=== PATIENT | female | born 1965 | race African-American/Black ===

== ENCOUNTER 2019-08-23 14:00 | Outpatient (CLI) | payer OTHER, SELFPAY ==
--- NOTE | ~2019-08-23 | US_ITS ---
EXAMINATION: US thyroid DATE: 08/23/2019 14:37 INDICATION: Thyroid nodule. TECHNIQUE: Multiple ultrasound images of the thyroid were obtained. COMPARISON: MRI 09/19/2013 FINDINGS: The right thyroid lobe measures 4.0 x 1.7 x 2.4 cm. The left thyroid lobe measures 4.9 x 1.3 x 1.8 c m. In the right thyroid lobe, there is a 1.8 cm solid, hypoechoic, clxox-pocb-xeji nodule with teena h margin without echogenic foci (TI-RADS TR4) with increase in size from 1.0 cm on 09/19/13. In the rig ht thyroid lobe, there is a 6 mm solid, hypoechoic, asuxt-twkj-ecyf nodule with smooth margin without echogenic foci (TR4). In the left thyroid lobe, there is a 6 mm solid, hypoechoic, cmaxc-aqah-lndz n odule with smooth margin without echogenic foci (TR4). IMPRESSION: 1. Thyroid nodules. Ultrasound-guided fine-needle aspiration of the larger right thyroid nodule is re commended. Reviewed, dictated and finalized at location A. IMPRESSION: 1. Thyroid nodules. Ultrasound-guided fine-needle aspiration of the larger righ t thyroid nodule is recommended.
--- NOTE | ~2019-08-23 | XR_ITS ---
XR abdomen/kub 1V 08/23/2019 14:42 INDICATION: Constipation TECHNIQUE: KUB COMPARISON: No prior studies for comparison. FINDINGS: Bowel gas pattern is normal. There is no evidence of free air, mass, organomegaly, ascites or obstruction. No abnormal calculi are seen. There are pelvic phleboliths. There are cholecystecto my clips. The bones appear intact. IMPRESSION: 1: No acute abdominal abnormality identified. Reviewed, dictated and finalized at location A.
== END 2019-08-23 14:01 | disposition home or self-care (01) ==
PROVIDERS: PCP Family Medicine; Visit Provider Nurse Practitioner
DX: E04.2 Nontoxic multinodular goiter (principal); K59.00 Constipation, unspecified
CPT/HCPCS: 74018; 76536

== ENCOUNTER 2019-09-26 12:56 | Outpatient (CLI) | payer OTHER, SELFPAY ==
--- NOTE | ~2019-09-26 | US_ITS ---
EXAMINATION: US FNA w image guidance DATE: 09/26/2019 14:21 INDICATION: Thyroid nodule TECHNIQUE: A time-out was performed to verify the patient's name, date of , and procedure to be performed . The procedure and its benefits and risks were discussed with the patient. Risks specifically discus sed included bleeding and infection. The patient understood the risks and agreed to proceed. The neck was prepped and draped in the usual sterile manner. 3 mL 1% lidocaine was used for local anesthesia . 6 passes were made with a 25G needle into the lesion. Appropriate needle location was documented with continuous sonographic guidance. The specimens were passed to the senior technologist in the room. A sterile bandage was applied. There were no immediate complications. FINDINGS: Grayscale ultrasound images demonstrate biopsy needles advanced into a 1.8 cm solid hypoechoic nodule in the mid right thyroid lobe. IMPRESSION: 1. Successful ultrasound-guided fine needle aspiration of the 1.8 cm TI RADS 4 right thyroid nodule of concern. Reviewed, dictated and finalized at location A.
== END 2019-09-26 12:57 | disposition home or self-care (01) ==
PROVIDERS: PCP Family Medicine; Visit Provider Family Medicine
DX: E04.1 Nontoxic single thyroid nodule (principal)
CPT/HCPCS: 10005; 88173; 88305

== ENCOUNTER 2019-11-07 12:20 | Outpatient (CLI) | payer OTHER, SELFPAY ==
[2019-11-07 12:57] LABS: Basophils Absolute Auto 0.1 K/mm3 (0.0-0.1); Basophils Percent Auto 0.8 % (0.2-1.2); Eosinophils Absolute Auto 0.3 K/mm3 (0-0.3); Eosinophils Percent Auto 3.7 % (0-4.4); Hematocrit 46.2 % (37.0-47.0); Hemoglobin 14.3 g/dL (12.0-15.0); Immature Granulocyte Absolute 0.01 K/mm3 (0.00-0.031); Immature Granulocyte Percent A 0.1 % (0-0.5); Lymphocytes Absolute Auto 2.41 K/mm3 (0.9-3.2); Lymphocytes Percent Auto 33.9 % (18.3-44.2); Mean Corpuscular Hemoglobin 25.1 pg (26-34); Mean Corpuscular Volume 81.1 fl (80-100); Mean Platelet Volume 10.7 fl (7.4-10.4); Monocytes Absolute Auto 0.7 K/mm3 (0.1-0.6); Monocytes Percent Auto 9.9 % (2.6-8.5); Neutrophils Absolute Auto 3.7 K/mm3 (1.3-6.7); Neutrophils Percent Auto 51.6 % (45.5-73.1); Platelet Count Result 254 k/mm3 (150-375); Red Cell Distribution Width 13.9 % (11.5-14.5); White Blood Count 7.1 K/mm3 (4.5-10.0)
[2019-11-07 13:06] LABS: Alanine Aminotransferase 20 U/L (4-35); Albumin Level 4.3 g/dL (3.5-5.1); Alkaline Phosphatase 134 U/L (38-126); Anion Gap 4 mmol/L (8-16); Aspartate Amino Transferase 23 U/L (14-36); Bilirubin,Total 0.5 mg/dL (0.2-1.3); Blood Urea Nitrogen 16 mg/dL (7-17); Calcium 9.7 mg/dL (8.4-10.2); Carbon Dioxide 30 mmol/L (22-30); Chloride 103 mmol/L (98-107); Cholesterol 229 mg/dL (0-200); Estimated Glomerular Filt Rate > 60; Glucose 95 mg/dL (65-105); HDL Direct 74 mg/dL; Potassium 3.6 mmol/L (3.4-5.0); Sodium 137 mmol/L (137-145); Triglycerides 61 mg/dL (<150)
[2019-11-07 13:17] LABS: LDL Cholesterol Direct 117 mg/dL
[2019-11-07 14:16] LABS: Free T4 Free Thyroxine 1.19 ng/mL (0.78-2.19); Vitamin D 25 Hydroxy 30.5 ng/mL
== END 2019-11-07 12:21 | disposition home or self-care (01) ==
LOC: ANHLAB 12:22
PROVIDERS: PCP Family Medicine; Visit Provider Nurse Practitioner
DX: K21.9 Gastro-esophageal reflux disease without esophagitis (principal); I10 Essential (primary) hypertension; R49.0 Dysphonia; Z00.00 Encounter for general adult medical examination without abnormal findings; Z13.0 Encounter for screening for diseases of the blood and blood-forming organs and certain disorders involving the immune mechanism; Z13.6 Encounter for screening for cardiovascular disorders; Z13.220 Encounter for screening for lipoid disorders; Z13.29 Encounter for screening for other suspected endocrine disorder; R80.9 Proteinuria, unspecified; E55.9 Vitamin D deficiency, unspecified
CPT/HCPCS: 36415; 80053; 80061; 82043; 82306; 84439; 84443; 84480; 85025

== ENCOUNTER 2019-12-20 01:16 | Outpatient (CLI) | payer OTHER, SELFPAY ==
[2019-12-21 03:00] LABS: SARS-CoV-2 RNA PCR Negative
== END 2019-12-20 01:17 | disposition home or self-care (01) ==
LOC: ANHCOVIDDT 01:16
PROVIDERS: PCP Family Medicine; Visit Provider Otolaryngology
DX: Z01.812 Encounter for preprocedural laboratory examination (principal); Z20.828 Contact with and (suspected) exposure to other viral communicable diseases
CPT/HCPCS: 87635; C9803; U0003

== ENCOUNTER 2019-12-20 07:44 | Outpatient (CLI) | payer OTHER, SELFPAY ==
--- NOTE | 2019-12-20 07:48 | ECG_ITS ---
Measurements Intervals [place] Rate: 57 P: 18 MO: 136 QRS: 8 QRSD: 94 T: 2 QT: 410 QTc: 403 Interpretive Statements SINUS RHYTHM DELAYED PRECORDIAL R/S TRANSITION BORDERLINE T WAVE ABNORMALITY- INFERIOR LEADS BORDERLINE ECG Electronically Signed On 12-20-2019 8:11:00 [employer]ATING SAF[employer] OFFICER by Jose Calvin D.O.
[2019-12-20 08:56] LABS: Anion Gap 6 mmol/L (8-16); Blood Urea Nitrogen 17 mg/dL (7-17); Calcium 9.7 mg/dL (8.4-10.2); Carbon Dioxide 31 mmol/L (22-30); Chloride 104 mmol/L (98-107); Estimated Glomerular Filt Rate > 60; Glucose 103 mg/dL (65-105); Potassium 3.6 mmol/L (3.4-5.0); Sodium 141 mmol/L (137-145)
[2019-12-20 09:16] LABS: Free T4 Free Thyroxine 1.29 ng/mL (0.78-2.19)
== END 2019-12-20 07:45 | disposition home or self-care (01) ==
LOC: ANHSURGERY 07:48
PROVIDERS: Anesthesiology; PCP Family Medicine; Visit Provider Otolaryngology
DX: Z01.818 Encounter for other preprocedural examination (principal); E04.1 Nontoxic single thyroid nodule; Z51.81 Encounter for therapeutic drug level monitoring; Z79.899 Other long term (current) drug therapy; I10 Essential (primary) hypertension
CPT/HCPCS: 36415; 80048; 84439; 84443; 93005

== ENCOUNTER 2019-12-22 01:44 | Day surgery (SDC) | payer OTHER, SELFPAY ==
[2019-12-15 16:08] VITALS: BMI 32.8
--- NOTE | 2019-12-21 14:22 | PM.IMHP ---
H&P: HPI History of Present Illness Date/Time: 12/21/19 14:22 Chief complaint: Right Thyroid Mass Narrative: Dejah Obrien is a 54 year old female With a thyroid goiter and compressive symptoms. The patient reports no new symptoms or changes in her medical history. Review of Systems Constitutional: Constitutional: Denies fatigue, Denies fever(s) and Denies lethargy Eyes: Eyes: Denies blurry vision and Denies change in vision ENT: Reports as per HPI Cardiovascular: Cardiovascular: Denies chest pain Respiratory: Respiratory: Denies cough Endocrine: Endocrine: Denies fatigue Hematologic/Lymphatic: Hematologic/Lymphatic: Denies easy bleeding, Denies easy bruising and Denies lymphadenopathy Allergic/Immunologic: Allergic/Immunologic: Denies seasonal rhinorrhea FORMERLY [facility], [facility] Past Medical History Medical History (Updated 09/19/19 @ 10:14 by Silas Lloyd MD) Fibroid Gallbladder & bile duct stone with obstruction Hernia Kidney abnormality of fetus on ultrasound Teratoma Tubal ectopic Surgical History Surgical History (Updated 09/19/19 @ 09:28 by Dodie Mancilla CMA) History of breast lump removal History of partial hysterectomy Family History Family History (System 09/01/19 @ 09:11 by Mickie Nieves) Mother Hypertension Social History Social History Smoking status: Never smoker Alcohol intake: current Spiritual care concerns: No Meds Home Medications and Allergies Home Medications Medication Instructions Recorded Confirmed Type amlodipine 10 mg tablet 10 mg PO DAILY 09/19/19 12/15/19 History hydrochlorothiazide 25 mg tablet 25 mg PO DAILY 09/19/19 12/15/19 History metoprolol succinate 100 mg 100 mg PO DAILY 09/19/19 12/15/19 History tablet,extended release 24 hr Elderberry 1 tablet PO DAILY 12/15/19 12/15/19 History Vitamin D3 1 tablet PO DAILY 12/15/19 12/15/19 History multivitamin 1 tablet PO DAILY 12/15/19 12/15/19 History vitamin E (dl, acetate) 400 unit PO DAILY 12/15/19 12/15/19 History Allergies Allergy/AdvReac Type Severity Reaction Status Date / Time Penicillins Allergy Severe HIVES Verified 12/15/19 16:09 Exam Const: General: cooperative, healthy appearing, comfortable, well developed and alert HENMT: Head: normal to inspection, normocephalic and atraumatic Ears: hearing grossly normal bilaterally, external ears normal, TM's normal bilaterally and EAC's normal General nose exam: Normal external nose present, Normal nares present, No nasal polyps present, Normal nasal mucous membranes and turbinates present and Normal septum present Face and sinus: normal facial exam Mouth: Yes Normal oral and palatal mucosa present, Yes lip normal, Yes tongue normal, Yes oropharynx normal and Yes moist mucous membranes Teeth and gingiva: dentition normal and gingiva normal Throat: posterior oropharynx normal, tonsils normal and uvula midline Eyes: General: appearance normal, both eyes and all related structures Periorbital: periorbital findings normal Eyelids: eyelids normal Conjunctivae: conjunctivae normal Sclera: sclerae normal Neck: Neck: normal visual inspection, full ROM and no lymphadenopathy Thyroid: diffusely enlarged Lymphatic: no lymphadenopathy noted Resp: Effort & Inspection: normal respiratory effort and able to speak in complete sentences Cardio: Jugular venous distension: no JVD Neuro: Cranial nerves: Yes CN's II-XII intact bilaterally Assessment and Plan Assessment and plan (1) Thyroid nodule: Code(s): E04.1 - Nontoxic single thyroid nodule Status: Acute Assessment and Plan: Plan is for OR for right thyroidectomy with recurrent laryngeal nerve monitoring. The risks and benefits were discussed with great detail with the patient including change in voice need for tracheostomy need for calcium supplementation and need for further surgical intervent
[2019-12-22] VITALS (8 sets, daily range): BP systolic 129–149; BP diastolic 68–79; PULSE 53–92; RESP 10–20; TEMP 36.3–36.6; O2SAT 97–100
--- NOTE | 2019-12-22 08:33 | WPDANESEPPF ---
Anes - Initial Pre Proc Eval Procedure: Operation Date: 12/22/19 09:15 Proposed Procedures p Right Thyroidectomy - Silas Lloyd MD Date/Time: 12/22/19 08:33 Surgeon: Silas Lloyd MD Pre Op Diagnosis: Right Thyroid Mass Patient Data Age: 54 Gender: F Height: 5 ft 5.5 in Weight: 90.72 kg Allergies Allergy/AdvReac Type Severity Reaction Status Date / Time Penicillins Allergy Severe HIVES Verified 12/15/19 16:09 Home Medications Medication Instructions Recorded Confirmed Type amlodipine 10 mg tablet 10 mg PO DAILY 09/19/19 12/15/19 History hydrochlorothiazide 25 mg tablet 25 mg PO DAILY 09/19/19 12/15/19 History metoprolol succinate 100 mg 100 mg PO DAILY 09/19/19 12/15/19 History tablet,extended release 24 hr Elderberry 1 tablet PO DAILY 12/15/19 12/15/19 History Vitamin D3 1 tablet PO DAILY 12/15/19 12/15/19 History multivitamin 1 tablet PO DAILY 12/15/19 12/15/19 History vitamin E (dl, acetate) 400 unit PO DAILY 12/15/19 12/15/19 History Patient hx anesthesia problems: none Family hx anesthesia problems: none PMFSH Past Medical History Medical History Fibroid Gallbladder & bile duct stone with obstruction Hernia Kidney abnormality of fetus on ultrasound Teratoma Tubal ectopic Surgical History Surgical History History of breast lump removal History of partial hysterectomy Family History Family History Mother Hypertension Social History Social History Smoking status: Never smoker Alcohol intake: current Spiritual care concerns: No Anes - Eval Final PreProcedure Day of Procedure 12/22/19 08:33 Patient weight: obese Heart: regular rate and rhythm Lungs: clear to auscultation Airway: Mallampati scale class II Neurological: alert and oriented Last oral intake: >/= 8 hours ASA classification: II Emergent: no Anesthetic plan: proceed Anesthesia type and monitoring: general ETT and standard monitoring Informed Consent: The patient's anesthetic plan and its attendant risks and benefits were discussed with the patient/family/POA. Questions were solicited and answers provided to the satisfaction of the patient/family/POA.
[2019-12-22] MEDS: LACTATED RINGERS 1,000 ML 30 ML IV CONT ×2 (08:36→12:07)
[2019-12-22] MEDS: MIDAZOLAM HCL (*CRX) 2 MG/2 ML VIAL IV PUSH (08:49)
[2019-12-22] MEDS: ACETAMINOPHEN 500 MG TABLET 1000 MG PO (09:05)
--- NOTE | 2019-12-22 09:20 | WPDHPUPDATE1 ---
History and Physical Update Update Date/Time: 12/22/19 09:20 History and Physical has been reviewed, including an updated exam of the patient. There are NO changes in the patient's condition. Risks, benefits, and alternatives have been discussed and questions answered. Patient agrees to proceed with procedure.
[2019-12-22] MEDS: ceFAZolin SODIUM 1 GM VIAL 2 GM IV PUSH (10:40)
[2019-12-22] MEDS: LIDO 1%/EPINEPHRINE 1:100,000 20 ML VIAL 5 ML INFILTRATE (10:50)
--- NOTE | 2019-12-22 11:50 | PM.PROC ---
Procedure Note - Detailed Date of procedure: 12/22/19 Pre-op diagnosis: Right Thyroid Mass Right thyroid nodule Post-op diagnosis: same Procedure performed: right thyroid lobectomy in isthmus ectomy Description of procedure: patient was correctly identified and consent was verified in the preoperative holding area. The patient was then brought to the operating room and a time-out performed. General anesthesia was induced and endotracheal tube was secured the patient's airway and taped the midline. The [place] monitoring system was then initiated and confirmed. The patient was then positioned in prep for the following procedure a 6 cm incision was drawn over the midline neck approximately 2 cm above the clavicle. 2 cc of 1% lidocaine with 1 100,000 parts epinephrine was then injected under the pre drawn surgical site. A 15 blade was then utilized to incise through the dermis. Bovie electrocautery was then utilized to dissect down to the through the strap muscles to the thyroid isthmus but dissection was then carried out over the isthmus and right lobe identifying the nodule. Using a combination of blunt dissection as well as ligature and bipolar cautery the right thyroid lobe was freed from its fascial attachments. The right recurrent laryngeal nerve was then identified and following removal of the isthmus as well as thyroid lobe confirmed to be functional. Hemostasis was noted be excellent. A small amount of hematoma was placed over the right middle thyroid vein. Copious irrigation was then carried out. The wound was closed the strap muscles were then approximated with 3 0 interrupted Vicryl sutures. The platysma was also approximated with 3 0 interrupted Vicryl sutures. The deep dermal layer was then approximated with 4 0 interrupted Vicryl sutures. The skin was closed with a subcuticular running 4 0 Monocryl suture. Skin glue was then applied. This marked end of the procedure. I carried out all portions of the dictated procedure. Care the patient was turned over to Anesthesia. Surgeon: Silas Lloyd MD Estimated blood loss (mL): 10 Drains: No Packing: No Pathology: yes Complications: No immediate complications Condition: stable Disposition: PACU
--- NOTE | 2019-12-22 11:56 | SUR.OPER ---
EBL: 10cc
== END 2019-12-22 14:00 | disposition home or self-care (01) ==
PROVIDERS: PCP Family Medicine; Visit Provider Otolaryngology
PROC: (CPT 60220; principal; 2019-12-22 09:15)
DX: E04.2 Nontoxic multinodular goiter (principal); E66.9 Obesity, unspecified; Z68.36 Body mass index [BMI] 36.0-36.9, adult
CPT/HCPCS: 60220; 88307; A9270; J0690; J2250; J3010; J7120

== ENCOUNTER 2020-05-30 14:52 | Outpatient (CLI) | payer OTHER, SELFPAY ==
[2020-05-30 16:51] LABS: Free T4 Free Thyroxine 0.82 ng/mL (0.78-2.19)
[2020-06-04 14:03] LABS: Triiodothyronine T3 Free 2.6 pg/mL (2.3-4.2)
== END 2020-05-30 14:53 | disposition home or self-care (01) ==
LOC: ANHLAB 14:55
PROVIDERS: PCP Family Medicine; Visit Provider Nurse Practitioner Family
DX: R94.6 Abnormal results of thyroid function studies (principal); E89.0 Postprocedural hypothyroidism
CPT/HCPCS: 36415; 84439; 84443; 84481

== ENCOUNTER 2020-07-01 08:43 | Outpatient (CLI) | payer OTHER, SELFPAY ==
[2020-07-01 10:24] LABS: Free T4 Free Thyroxine 1.35 ng/mL (0.78-2.19)
[2020-07-01 13:46] LABS: Total Triiodothyronine (T3) 1.21 NG/ML (0.97-1.69)
[2020-07-04 13:16] LABS: Alkaline Phosphatase 95 U/L (37-153); Macrohepatic Isoenzymes 0 % (<=0)
== END 2020-07-01 08:44 | disposition home or self-care (01) ==
PROVIDERS: Nurse Practitioner; PCP Family Medicine; Referring Provider Nurse Practitioner Family; Visit Provider Otolaryngology
DX: E89.0 Postprocedural hypothyroidism (principal); R94.8 Abnormal results of function studies of other organs and systems
CPT/HCPCS: 36415; 82105; 84075; 84080; 84439; 84443; 84480

== ENCOUNTER 2020-07-12 08:34 | Outpatient (CLI) | payer OTHER, SELFPAY ==
--- NOTE | ~2020-07-12 | MM_ITS ---
EXAMINATION: MM screening long BI w odalis HISTORY: Screening mammogram TECHNIQUE: Craniocaudal and mediolateral oblique 3-D tomosynthesis images were obtained and synthetic 2-D images were generated. CAD analysis was submitted and interpreted. COMPARISON: 04/03/2013 bilateral digital screening mammogram BREAST PARENCHYMAL COMPOSITION: There are scattered areas of fibroglandular density. FINDINGS: Surgical clips are noted in the upper right breast; history of prior benign right breast bi opsy. There is an approximately 6 x 12 mm circumscribed opacity in the anterior upper mid right breast. Selena gnostic right mammogram and right breast ultrasound examination are recommended. Otherwise there is no evidence of suspicious mass, calcification, or architectural distortion to sugg est malignancy in either breast. There has been no other suspicious interval change. IMPRESSION: 1. 6 x 12 mm upper mid right breast low-density circumscribed mass 2. Diagnostic right mammogram and right breast ultrasound examination are recommended. BI-RADS Category 0: Incomplete: Needs additional imaging evaluation. Reviewed, dictated and finalized at location A. IMPRESSION: 1. 6 x 12 mm upper mid right breast low-density circumscribed mass 2. Diagnostic right mammogram and right breast ultrasound examination are recom mended. BI-RADS Category 0: Incomplete: Needs additional imaging evaluation.
== END 2020-07-12 08:35 | disposition home or self-care (01) ==
LOC: ANHIMG 08:36
PROVIDERS: PCP Family Medicine; Visit Provider Nurse Practitioner
DX: Z12.31 Encounter for screening mammogram for malignant neoplasm of breast (principal); R92.8 Other abnormal and inconclusive findings on diagnostic imaging of breast
CPT/HCPCS: 77063; 77067

== ENCOUNTER 2020-08-12 08:08 | Outpatient (CLI) | payer OTHER, SELFPAY ==
--- NOTE | ~2020-08-12 | MMUS_ITS ---
EXAMINATION: MM diagnostic mammo unilat RT, US breast RT limited HISTORY: Follow-up right breast mass TECHNIQUE: Additional 3-D tomosynthesis images of the right breast were performed and synthetic 2-D i mages were generated. CAD analysis was submitted and interpreted. High resolution Limited right breas t ultrasound was performed. COMPARISON: 07/12/2020 BREAST PARENCHYMAL COMPOSITION: Breast composed of scattered areas of fibroglandular density. FINDINGS: MAMMOGRAPHIC FINDINGS: There is a mass in the upper outer quadrant of the right breast with slightly lobulated appearance me asuring up to 12 mm maximum dimension on spot MLO view. There are no suspicious calcifications or arc hitectural distortion. ULTRASOUND: Limited right breast ultrasound: At 11:00, 5 cm from the nipple, there is an irregular shaped hypoech oic mass with posterior shadowing measuring 1.2 x 0.7 x 0.6 cm. This mass is taller than wide with ma rginal vascularity. As corresponds to the mammographic finding. IMPRESSION: 1. Irregular shaped 12 mm right breast mass at 11:00, 5 cm from the nipple. 2. Ultrasound-guided right breast biopsy recommended. BI-RADS category 4, suspicious findings. Reviewed, dictated and finalized at location A. IMPRESSION: 1. Irregular shaped 12 mm right breast mass at 11:00, 5 cm from the nipple. 2. Ultrasound-guided right breast biopsy recommended. BI-RADS category 4, suspicious findings.
== END 2020-08-12 08:09 ==
PROVIDERS: Visit Provider Family Medicine
DX: R92.8 Other abnormal and inconclusive findings on diagnostic imaging of breast (principal)
CPT/HCPCS: 76642; 77065

== ENCOUNTER 2020-08-26 09:53 | Outpatient (CLI) | payer OTHER, SELFPAY ==
--- NOTE | ~2020-08-26 | MMUS_ITS ---
EXAMINATION: US breast biopsy RT w image, MM post biopsy invasive RT DATE: 08/26/2020 11:09 (accession [id number]), 08/26/2020 11:21 (accession [id number]) INDICATION: Indeterminate mass in the upper outer quadrant of the right breast. Ultrasound-guided cor e biopsy is requested to evaluate for malignancy. TECHNIQUE AND FINDINGS: The risks and potential benefits of the procedure were discussed with the patient including bleeding and infection. A time out was performed. The skin of the right breast was prepared and draped in usua l sterile fashion. 1% lidocaine was used for superficial anesthesia. 1% lidocaine with epinephrine wa s used for deep anesthesia. A vacuum-assisted biopsy gun needle was advanced through to the outer edge of the region of interest from an inferolateral approach utilizing sonographic guidance. A total of three tissue core samples w ere obtained through the lesion. A tissue marker clip was then placed at the biopsy site. Hemostasis was achieved. A sterile bandage was applied. The patient tolerated procedure well and there was no evidence of immediate complication. The patient was given verbal instructions to return to the Emergency Department in the event of severe breast pa in or rapid breast enlargement. A two view right breast mammogram was obtained to document tissue mar ker clip placement. IMPRESSION: 1. Successful ultrasound-guided vacuum-assisted biopsy of right breast mass with tissue marker placem ent. Reviewed, dictated and finalized at location A. IMPRESSION: 1. Successful ultrasound-guided vacuum-assisted biopsy of right breast mass wit h tissue marker placement.
== END 2020-08-26 09:54 | disposition home or self-care (01) ==
PROVIDERS: PCP Family Medicine; Visit Provider Family Medicine
DX: N63.10 Unspecified lump in the right breast, unspecified quadrant (principal); R92.8 Other abnormal and inconclusive findings on diagnostic imaging of breast
CPT/HCPCS: 19083; 88305; 88342

== ENCOUNTER → 2020-09-13 03:54 | Outpatient (CLI) | payer OTHER, SELFPAY ==
[2020-09-13 18:52] LABS: SARS-CoV-2 RNA PCR Negative
== END ==
PROVIDERS: PCP Family Medicine; Visit Provider Family Medicine
DX: Z20.822 Contact with and (suspected) exposure to COVID-19 (principal)
CPT/HCPCS: C9803; U0003; U0005

== ENCOUNTER 2021-10-23 08:56 | Outpatient (CLI) | payer OTHER, SELFPAY ==
--- NOTE | 2021-10-23 | ECG_ITS ---
Measurements Intervals [place] Rate: 51 P: 35 DE: 135 QRS: 31 QRSD: 86 T: 9 QT: 429 QTc: 397 Interpretive Statements SINUS BRADYCARDIA BASELINE WANDER- I, II, AVR BORDERLINE ECG COMPARED TO ECG 12/20/2019 08:20:39 SINUS BRADYCARDIA NOW PRESENT Electronically Signed On 10-23-2021 10:23:34 CDT by Jose Calvin D.O.
[2021-10-23 09:43] LABS: Basophils Absolute Auto 0.1 K/mm3 (0.0-0.1); Basophils Percent Auto 0.8 % (0.2-1.2); Eosinophils Absolute Auto 0.2 K/mm3 (0-0.3); Eosinophils Percent Auto 2.4 % (0-4.4); Hematocrit 43.3 % (37.0-47.0); Hemoglobin 13.3 g/dL (12.0-15.0); Immature Granulocyte Absolute 0.01 K/mm3 (0.00-0.031); Immature Granulocyte Percent A 0.2 % (0-0.5); Lymphocytes Percent Auto 34.7 % (18.3-44.2); Mean Corpuscular HGB Conc 30.7 g/dl (32-36); Mean Corpuscular Hemoglobin 25.2 pg (26-34); Mean Platelet Volume 10.7 fl (7.4-10.4); Monocytes Absolute Auto 0.7 K/mm3 (0.1-0.6); Monocytes Percent Auto 9.8 % (2.6-8.5); Neutrophils Absolute Auto 3.5 K/mm3 (1.3-6.7); Neutrophils Percent Auto 52.1 % (45.5-73.1); Platelet Count Result 233 k/mm3 (150-375); Red Blood Count 5.28 M/mm3 (4.2-5.4); Red Cell Distribution Width 14.4 % (11.5-14.5); White Blood Count 6.6 K/mm3 (4.5-10.0)
[2021-10-23 09:51] LABS: Alanine Aminotransferase 22 U/L (6-35); Albumin Level 4.3 g/dL (3.5-5.1); Alkaline Phosphatase 119 U/L (38-126); Anion Gap 8 mmol/L (8-16); Aspartate Amino Transferase 24 U/L (14-36); Bilirubin,Total 0.5 mg/dL (0.2-1.3); Blood Urea Nitrogen 12 mg/dL (7-17); Calcium 9.4 mg/dL (8.4-10.2); Carbon Dioxide 27 mmol/L (22-30); Chloride 105 mmol/L (98-107); Cholesterol 229 mg/dL (0-200); Estimated Glomerular Filt Rate > 60; Glucose 99 mg/dL (65-110); HDL Direct 71 mg/dL; Potassium 3.5 mmol/L (3.4-5.0); Sodium 140 mmol/L (137-145); Triglycerides 63 mg/dL (<150)
[2021-10-23 10:02] LABS: LDL Cholesterol Direct 92 mg/dL
[2021-10-23 10:22] LABS: Total Triiodothyronine (T3) 1.02 NG/ML (0.97-1.69)
[2021-10-23 10:44] LABS: Free T4 Free Thyroxine 1.42 ng/mL (0.78-2.19)
== END 2021-10-23 08:57 | disposition home or self-care (01) ==
PROVIDERS: PCP Family Medicine; Visit Provider Family Medicine
DX: R00.1 Bradycardia, unspecified (principal); R00.2 Palpitations; I10 Essential (primary) hypertension
CPT/HCPCS: 36415; 80053; 80061; 84439; 84443; 84480; 85025; 93005

== ENCOUNTER 2022-04-08 08:23 | Outpatient (CLI) | payer OTHER, SELFPAY ==
--- NOTE | 2022-04-08 08:36 | EST_ITS ---
Patient Info Name: Dejah Obrien Age: 56 years : 1965 Gender: Female Ht: 65 in Wt: 230 lbs BSA: 2.24 m2 HR: 63 bpm BP: 141 / 74 mmHg Heart Rhythm: Sinus Rhythm Technical Quality: Fair Exam Date: 04/08/2022 8:50 AM Exam Location: [facility] Pulmonary Patient Status: Outpatient Admit Date: 04/08/2022 Staff Ordering Physician: Jose Calvin DO Travel Attendants: Janey Murillo RDCS Attending Provider: Referring Physician: Nikunj ANDERSON; Exam Type: CA stress echo Study Info Indications R07.9 - Chest pain, unspecified Treadmill exercise stress echocardiogram is performed. Summary 1. 1. Inconclusive Sean exercise stress test for ischemic ST changes by ECG criteria due to achieving only 67% MPHR for age group which decreases sensitivity of the test. This could be due to mild chronotropic incompetence but she is on Pindolol also. 2. 2. Reduced functional capacity, achieving 8 METs of workload. 3. 3. Baseline hypertension with hypertensive response to exercise. 4. 5. Appropriate HR recovery at 1 minute post exercise. 5. 6. Negative stress echocardiogram for ischemia by wall motion analysis at the level of workload achieved. Stress Echo Findings Left Ventricle Appropriate increase in LV endocardial thickening with systole. Appropriate augmentation of contractility with systole. No wall motion abnormality. Left Ventricle Normal LV systolic function, no wall motion abnormality. Protocol: Sean Stress ECG Details Stage: REST Duration (min): 1 min : 8 sec Speed (mph): 0.0 Grade (%): 0 HR (bpm): 63 SBP (mmHg): 141 DBP (mmHg): 74 METS: --- Stage: REST Duration (min): 10 min : 44 sec Speed (mph): 0.0 Grade (%): 0 HR (bpm): 63 SBP (mmHg): 141 DBP (mmHg): 74 METS: --- Stage: STAGE 1 Duration (min): 1 min : 0 sec Speed (mph): 1.7 Grade (%): 10 HR (bpm): 80 SBP (mmHg): 141 DBP (mmHg): 74 METS: --- Stage: STAGE 1 Duration (min): 2 min : 0 sec Speed (mph): 1.7 Grade (%): 10 HR (bpm): 90 SBP (mmHg): 141 DBP (mmHg): 74 METS: --- Stage: STAGE 1 Duration (min): 3 min : 0 sec Speed (mph): 1.7 Grade (%): 10 HR (bpm): 93 SBP (mmHg): 169 DBP (mmHg): 87 METS: --- Stage: STAGE 2 Duration (min): 1 min : 0 sec Speed (mph): 2.5 Grade (%): 12 HR (bpm): 96 SBP (mmHg): 169 DBP (mmHg): 87 METS: --- Stage: STAGE 2 Duration (min): 2 min : 0 sec Speed (mph): 2.5 Grade (%): 12 HR (bpm): 99 SBP (mmHg): 169 DBP (mmHg): 86 METS: --- Stage: STAGE 2 Duration (min): 3 min : 0 sec Speed (mph): 2.5 Grade (%): 12 HR (bpm): 102 SBP (mmHg): 169 DBP (mmHg): 86 METS: --- Stage: STAGE 3 Duration (min): 0 min : 39 sec Speed (mph): 0.0 Grade (%): 0 HR (bpm): 111 SBP (mmHg): 169 DBP (mmHg): 86 METS: --- Stage: RECOVERY Duration (min): 0 min : 20 sec Speed (mph): 0.0 Grade (%): 0 HR (bpm): 95 S
== END 2022-04-08 08:24 | disposition home or self-care (01) ==
PROVIDERS: PCP Family Medicine; Visit Provider Internal Medicine Cardiovascular Disease
DX: R07.9 Chest pain, unspecified (principal)
CPT/HCPCS: 93351

== ENCOUNTER 2022-07-23 08:19 | Outpatient (CLI) | payer OTHER, SELFPAY ==
--- NOTE | ~2022-07-23 | NM_ITS ---
EXAMINATION: NM vahid stress w perfusion DATE: 07/23/2022 10:19 INDICATION: Chest pain. TECHNIQUE: Rest images were obtained following intravenous administration of 10.3 mCi Tc99m tetrofosm in (Myoview). The patient was infused intravenously with Lexiscan (regadenoson). Then, 34.1 mCi Tc99m tetrofosmin (Myoview) was administered intravenously, and supine and prone stress images were obtain ed. Data was reconstructed into short axis and horizontal and vertical long axis SPECT images. Gated SPECT images were also obtained. COMPARISON: None. FINDINGS: There is a small, mild, fixed perfusion defect involving mid to basal anterior wall of left ventricle, consistent with infarct. No reversible component to suggest ischemia.. There is no segme ntal wall motion abnormality. Left ventricular ejection fraction measures 57%. IMPRESSION: 1. Small area of mild infarct involving mid to basal anterior wall of left ventricle. 2. Normal left ventricular ejection fraction measuring 57%. Reviewed, dictated and finalized at location A. IMPRESSION: 1. Small area of mild infarct involving mid to basal anterior wall of left vent ricle. 2. Normal left ventricular ejection fraction measuring 57%.
--- NOTE | 2022-07-23 08:31 | EST_ITS ---
Patient Info Name: Dejah Obrien Age: 57 years : 1965 Gender: Female Ht: 65 in Wt: 238 lbs BSA: 2.28 m2 HR: 60 bpm BP: 143 / 86 mmHg Heart Rhythm: Sinus Rhythm Exam Date: 07/23/2022 9:12 AM Exam Location: [facility] Stress Patient Status: Outpatient Admit Date: 07/23/2022 Staff Ordering Physician: Jose Calvin DO Attending Provider: Jose Calvin DO Exercise Technologist: Radha Laureano CT Exercise Physician: Jose Calvin DO Exam Type: CA stress vahid w NM Study Info Indications R07.89 - Other chest pain A regadenoson stress test was performed. Summary 1. 1. Negative lexiscan stress test for ischemic ST changes by ECG criteria. 2. 2. Baseline hypertension. 3. 3. Nuclear scan to follow and will be reported separately. Please correlate with it. 4. 4. Patient informed of the above results. Protocol: Lexiscan Stress ECG Details Stage: REST Duration (min): 1 min : 12 sec HR (bpm): 57 SBP (mmHg): 143 DBP (mmHg): 86 Stage: REST Duration (min): 7 min : 53 sec HR (bpm): 57 SBP (mmHg): 143 DBP (mmHg): 86 Stage: STAGE 1 Duration (min): 0 min : 59 sec HR (bpm): 71 SBP (mmHg): 150 DBP (mmHg): 73 Stage: RECOVERY Duration (min): 1 min : 0 sec HR (bpm): 80 SBP (mmHg): 150 DBP (mmHg): 73 Stage: RECOVERY Duration (min): 2 min : 0 sec HR (bpm): 77 SBP (mmHg): 150 DBP (mmHg): 73 Stage: RECOVERY Duration (min): 3 min : 0 sec HR (bpm): 72 SBP (mmHg): 131 DBP (mmHg): 71 Stage: RECOVERY Duration (min): 3 min : 13 sec HR (bpm): 73 SBP (mmHg): 131 DBP (mmHg): 71 Rest HR: 57 bpm Peak HR: 80 bpm Rest Sys BP: 143 mmHg Peak Sys BP: 150 mmHg Max Pred HR: 164 bpm % Max Pred HR: 49 % Target HR: 139 bpm Max RPP: 12,000 bpm*mmHg Termination Reason: Completed protocol Cardiac Symptoms: Shortness of breath Total Time: 1 min : 0 sec Rest Dickinson BP: 86 mmHg Peak Dickinson BP: 73 mmHg Total Dose: 0.4 mg Resting ECG Sinus bradycardia. Stress ECG No ST changes. Arrhythmias None. Report Signatures
== END 2022-07-23 08:20 | disposition home or self-care (01) ==
PROVIDERS: PCP Family Medicine; Visit Provider Internal Medicine Cardiovascular Disease
DX: R07.9 Chest pain, unspecified (principal); I10 Essential (primary) hypertension
CPT/HCPCS: 78452; 93017; A9502; J2785

== ENCOUNTER 2022-08-29 16:03 | Emergency (ER) | payer OTHER, SELFPAY ==
--- NOTE | ~2022-08-29 | XR_ITS ---
EXAMINATION: XR chest 2V DATE: 08/29/2022 16:53 INDICATION: Left chest pain. Cough. TECHNIQUE: Frontal and lateral views of the chest were obtained. COMPARISON: None. FINDINGS: There is mild atelectasis in left lower lung zone. No pleural effusion or pneumothorax. The heart size is normal. Surgical clips in the right upper quadrant are likely from cholecystectomy. IMPRESSION: 1. Mild atelectasis in left lower lung zone. Reviewed, dictated and finalized at location E.
--- NOTE | 2022-08-29 16:17 | ECG_ITS ---
Measurements Intervals [place] Rate: 64 P: 16 PA: 130 QRS: 14 QRSD: 79 T: 25 QT: 392 QTc: 406 Interpretive Statements SINUS RHYTHM NORMAL ECG COMPARED TO ECG 10/23/2021 09:51:59 SINUS RHYTHM NOW PRESENT Electronically Signed On 08-29-2022 18:26:21 CDT by Jose Calvin D.O.
[2022-08-29 16:30] VITALS: BP 157/97; PULSE 69; RESP 18; TEMP 36.5; O2SAT 98
[2022-08-29 16:35] LABS: Basophils Absolute Auto 0.1 K/mm3 (0.0-0.1); Basophils Percent Auto 0.6 % (0.2-1.2); Eosinophils Absolute Auto 0.1 K/mm3 (0-0.3); Eosinophils Percent Auto 1.7 % (0-4.4); Hematocrit 41.6 % (37.0-47.0); Hemoglobin 12.6 g/dL (12.0-15.0); Immature Granulocyte Absolute 0.01 K/mm3 (0.00-0.031); Immature Granulocyte Percent A 0.1 % (0-0.5); Lymphocytes Absolute Auto 2.41 K/mm3 (0.9-3.2); Lymphocytes Percent Auto 29.4 % (18.3-44.2); Mean Corpuscular HGB Conc 30.3 g/dl (32-36); Mean Corpuscular Volume 82.4 fl (80-100); Mean Platelet Volume 10.3 fl (7.4-10.4); Monocytes Absolute Auto 0.8 K/mm3 (0.1-0.6); Monocytes Percent Auto 9.2 % (2.6-8.5); Neutrophils Absolute Auto 4.8 K/mm3 (1.3-6.7); Platelet Count Result 236 k/mm3 (150-375); Red Blood Count 5.05 M/mm3 (4.2-5.4); Red Cell Distribution Width 14.7 % (11.5-14.5); White Blood Count 8.2 K/mm3 (4.5-10.0)
[2022-08-29 16:46] LABS: INR 0.9; Prothrombin Time 12.5 Seconds (11.1-14.7)
[2022-08-29 16:48] LABS: Alanine Aminotransferase 22 U/L (6-35); Albumin Level 4.4 g/dL (3.5-5.1); Alkaline Phosphatase 119 U/L (38-126); Anion Gap 4 mmol/L (8-16); Aspartate Amino Transferase 24 U/L (14-36); Bilirubin,Total 0.4 mg/dL (0.2-1.3); Blood Urea Nitrogen 12 mg/dL (7-17); Calcium 9.2 mg/dL (8.4-10.2); Carbon Dioxide 26 mmol/L (22-30); Chloride 109 mmol/L (98-107); Estimated CRCL calculation 81 ml/min; Estimated Glomerular Filt Rate > 60; Glucose 107 mg/dL (65-110); Lipase 42 U/L (23-300); Potassium 3.7 mmol/L (3.4-5.0); Sodium 139 mmol/L (137-145)
[2022-08-29 17:00] LABS: Troponin I < 0.012 ng/mL (0.000-0.034)
--- NOTE | 2022-08-29 19:23 | ED.CHESTPAIN ---
HPI - Chest Pain General Chief Complaint: Chest Pain Stated Complaint: chest pain with radiation x2 days Time Seen by Provider: 08/29/22 18:53 History of Present Illness HPI narrative: 57-year-old female presented to the emergency department for evaluation of back pain that for started on her upper back a few days ago was associated with congestion and shortness of breath, patient states that over the last day the chest pain has moved down to her left flank. Patient denies any pain with urination. Patient denies any prior history of kidney stones. Patient reports he did have a partial nephrectomy due to a mass. Patient also has underlying adrenal issues. Patient denies any prior history of AL and denies any prior history of PE or DVT. Related Data Home Medications Medication Instructions Recorded Confirmed Vitamin D3 1 tablet PO DAILY 12/15/19 06/15/22 multivitamin 1 tablet PO DAILY 12/15/19 06/15/22 vitamin E (dl, acetate) 400 unit 400 unit PO DAILY 12/15/19 06/15/22 chewable tablet aspirin 81 mg tablet,delayed 81 mg PO DAILY 05/30/20 06/15/22 release (Adult Low Dose Aspirin) potassium chloride 20 mEq 20 meq PO DAILY 05/30/20 06/15/22 tablet,extended release pindolol 5 mg tablet 2.5 mg PO BID 11/18/21 06/15/22 Allergies Allergy/AdvReac Type Severity Reaction Status Date / Time Penicillins Allergy Severe HIVES Verified 06/15/22 10:03 Review of Systems Review of Systems: All systems reviewed & are unremarkable except as noted in HPI and below PMFSH Past Medical History Medical History Fibroid Gallbladder & bile duct stone with obstruction Hernia Kidney abnormality of fetus on ultrasound Teratoma Tubal ectopic Surgical History Surgical History History of breast lump removal History of partial hysterectomy Family History Family History Mother Hypertension Social History Social History Smoking status: Never smoker Second hand tobacco smoke exposure: No Alcohol intake: current Substance use: never Substance use type: does not use Spiritual care concerns: No Exam Narrative: APPEARANCE: Well appearing, no pain, no distress, well-nourished. HEAD: normocephalic, atraumatic. EYES: PERRLA/EOMI, conjunctivae clear. NOSE: Normal no drainage EARS:TMS clear with good light reflex. THROAT: Pharynx clear, no exudate. NECK: Supple. No adenopathy, no masses. RESPIRATORY: Airway patent, respirations nonlabored. Clear to auscultation bilaterally, no rales, rhonchi, wheezing. CARDIOVASCULAR: Regular rate and rhythm without murmurs rubs or gallops. ABDOMINAL: Soft, nontender, nondistended, normal bowel sounds MUSCULOSKELETAL: Moves all extremities. Strength/ROM intact, No edema, No calf tenderness. NEURO: Alert. Cranial nerves II through XII intact. Grossly intact SKIN: Warm, dry. Normal Color Course Course Emergency Course: 57-year-old female presented to ED for evaluation of chest congestion back pain and flank pain. Patient is afebrile with no leukocytosis and has a stable hemoglobin. Patient had a D-dimer that was and normal limits. Patient's CMP had no significant abnormalities and patient had negative serial troponins. UA showed no evidence of infection or hematuria. Chest x-ray showed no acute abnormality and EKG showed no evidence of ischemia. Vital Signs Vital signs: Vital Signs Temperature 97.7 F 08/29/22 16:30 Pulse Rate 69 08/29/22 16:30 Respiratory Rate 18 08/29/22 16:30 Blood Pressure 157/97 H 08/29/22 16:30 Pulse Oximetry 98 08/29/22 16:30 Oxygen Delivery Room Air 08/29/22 16:30 Temperature 97.7 F 08/29/22 16:30 Pulse Rate 78 08/29/22 22:26 Respiratory Rate 15 08/29/22 22:26 Blood Pressure 14
[2022-08-29 20:07] LABS: D Dimer 0.36 ug/mL (<0.48)
[2022-08-29 20:19] LABS: Troponin I < 0.012 ng/mL (0.000-0.034)
[2022-08-29 20:20] LABS: Appearance Urine Clear (Clear); Bilirubin Urine Negative (Negative); Blood Urine Negative (Negative); Color Urine Yellow (Yellow); Glucose Urine UA Negative (Negative); Ketones Urine Negative (Negative); Leukocyte Esterase Ur Negative LEU/UL (Negative); Nitrate Urine Negative (Negative); Protein Urine Negative (Negative); Specific Grav Ur 1.023 (1.001-1.035); Urobilinogen Urine 0.2 mg/dL (<2.0); pH Urine 6.5 (5.0-9.0)
[2022-08-29 20:24] LABS: Add Urine Microscopic? NO
[2022-08-29 22:26] VITALS: BP 148/76; PULSE 78; RESP 15; O2SAT 98
== END 2022-08-29 22:26 | disposition home or self-care (01) ==
PROVIDERS: Emergency Provider Emergency Medicine; PCP Family Medicine
DX: M54.9 Dorsalgia, unspecified (principal)
CPT/HCPCS: 36415; 71046; 80053; 81003; 83690; 84484; 85025; 85380; 85610; 85730; 93005; 99284

== ENCOUNTER 2023-06-16 14:07 | Outpatient (RCR) | payer OTHER, SELFPAY ==
--- NOTE | 2023-06-16 15:28 | PTOPEVAL1 ---
Assessment and note entered by Gerson Preciado Evaluation Information Assessment Status Evaluation Diagnosis low back pain Onset 05/12/23 Subjective Information Pt. reports that she developed pain across the low back about 2 months ago. She notes a hx of pain for several years prior to her recent onset. she describes a tightness across the entire back and even into the shoulder blades. She reports she has not had any recent MRI or x-ray. She states that pain can radiate into the right leg. She notices pain most with sitting down or laying down . She reports that when walking she notices stiffness in the legs with walking, but pain does reduce in standing. 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 She states that she does notices pain with bending forward. She states that her goal is to decrease her low back pain. Reported Pain Level Pain Score 2: Self Report Assessment PT Clinical Summary Pt. is a 57 year old female who enters the clinic with low back pain. Pt. presents with pain in multiple directions of lumbar movement on this date, indicating likely lumbar instability. She currently presents with impaired postural awareness, l.e. weakness, abdominal weakness and pain. Continued skilled PT is indicated in order to improve these areas to allow for improve comfort with IADL's. Plan of Care Interventions Electrical Stimulation,Hot Pack/Cold Pack,Manual Therapy,Mechanical Traction,Neuro Re-education, Patient/Caregiver Educati,Therapeutic Activities, Therapeutic Exercise PT Services Indicated Yes Treatment Frequency and 2x/week x 10 visits Duration These treatments will address the objective and functional deficits as defined above. The patient will be advanced safely and appropriately in order for the patient to progress towards his/her prior level of function. Additional exercises will be introduced and as well as a comprehensive home exercise program upon discharge, if needed, ?to ensure carryover of functional gains achieved in the clinic. This treatment plan has been reviewed and agreement upon by the patient.
--- NOTE | 2023-06-16 15:37 | OPREHPOC ---
Outpatient Therapy Plan of Care This is a Multidisciplinary Plan of Care that may contain components documented by all disciplines (PT, OT, and ST.) PT Problem 1 PT Problem #1 Knowledge Deficit PT Goal 1 Goal Pt. will be independent with a HEP addressing core strength. Target Visit 2 PT Problem 2 PT Problem #2 Impaired Strength PT Goal 1 Goal Pt. will present with 4+/5 oblique and lower abdominal strength Pt. will present with 5/5 gross l.e. strength. Target Visit 10 PT Problem 3 PT Problem #3 Impaired Functional Mobil PT Goal 1 Goal Pt. will demonstrate the ability lift 20# from floor to waist for 10 reps with proper body mechanics. Pt. will report less than 10 limitation on the Modified Oswestry indicating improved function Target Visit 10
--- NOTE | 2023-06-21 16:21 | PCPTNOTE ---
pt called and canceled today's appt, no reason was given.
--- NOTE | 2023-06-24 17:08 | PCPTNOTE ---
Patient no show, left voicemail with reminder of next appointment.
--- NOTE | 2023-07-06 16:31 | PCPTNOTE ---
No call no show this date.
--- NOTE | 2023-09-09 12:51 | PCPTNOTE ---
Mrs. Minesh Obrien attended her initial evaluaiton on 06/16/23. She failed to return to any sessions following her evaluation and will be discharged from our care. Refer to her initial evaluation for her discharge status. Thank you for the referral of this patient. Gerson Preciado, MPT
== END 2023-08-30 10:53 | disposition home or self-care (01) ==
LOC: ANHPT 14:07
PROVIDERS: PCP Family Medicine; Visit Provider Family Medicine
DX: M54.50 Low back pain, unspecified (principal)
CPT/HCPCS: 97014; 97110; 97161; 99199; G0283

== ENCOUNTER 2023-06-29 15:42 | Outpatient (CLI) | payer OTHER, SELFPAY ==
--- NOTE | ~2023-06-29 | XR_ITS ---
EXAM: XR lumbar spine 2-3V DATE: 06/29/2023 16:03 HISTORY: BACK PAIN . COMPARISON: 10/05/2012. FINDINGS: Cholecystectomy clips. 5 nonrib-bearing lumbar-type vertebral bodies. Pedicles intact. 4 mm anterolisthesis at L3-4. 2 mm anterolisthesis at L4-5. Vertebral body heights preserved. Mild disc s pace narrowing at L3-4 and L4-5. Mild lower lumbar facet hypertrophy and sclerosis. No fracture or di slocation. IMPRESSION: Grade 1 anterolistheses at L3-4 and L4-5. Mild degenerative disc disease L3-4 and L4-5. M ild lower lumbar facet arthropathy. Reviewed, dictated and finalized at location K. IMPRESSION: Grade 1 anterolistheses at L3-4 and L4-5. Mild degenerative disc di sease L3-4 and L4-5. Mild lower lumbar facet arthropathy.
--- NOTE | ~2023-06-29 | XR_ITS ---
Thoracic spine: Clinical Indication: Back pain AP and lateral views were performed. No fracture is seen. There is normal alignment of the vertebrae. There is mild degenerative change t hroughout the thoracic spine. Paravertebral soft tissues appear normal. Impression: Mild degenerative change throughout the thoracic spine. Reviewed, dictated and finalized at location . Impression: Mild degenerative change throughout the thoracic spine.
== END 2023-06-29 15:43 | disposition home or self-care (01) ==
LOC: ANHIMG 15:43
PROVIDERS: PCP Family Medicine; Visit Provider Registered Nurse
DX: M54.9 Dorsalgia, unspecified (principal)
CPT/HCPCS: 72070; 72100

== ENCOUNTER 2023-11-18 11:54 | Outpatient (CLI) | payer OTHER, SELFPAY ==
[2023-11-18 12:39] LABS: Alanine Aminotransferase 20 U/L (6-35); Albumin Level 4.2 g/dL (3.5-5.1); Alkaline Phosphatase 146 U/L (38-126); Anion Gap 5 mmol/L (4-12); Aspartate Amino Transferase 23 U/L (14-36); Bilirubin,Total 0.4 mg/dL (0.2-1.3); Blood Urea Nitrogen 16 mg/dL (7-17); Carbon Dioxide 28 mmol/L (22-30); Chloride 105 mmol/L (98-107); Cholesterol 207 mg/dL (0-200); Estimated Glomerular Filt Rate > 60; Glucose 89 mg/dL (65-110); HDL Direct 81 mg/dL; Potassium 3.9 mmol/L (3.4-5.0); Sodium 138 mmol/L (137-145); Triglycerides 59 mg/dL (<150)
[2023-11-18 12:50] LABS: LDL Cholesterol Direct 81 mg/dL
== END 2023-11-18 11:55 | disposition home or self-care (01) ==
LOC: ANHLAB 11:58
PROVIDERS: PCP Family Medicine; Visit Provider Registered Nurse
DX: E78.5 Hyperlipidemia, unspecified (principal); I10 Essential (primary) hypertension; E66.9 Obesity, unspecified
CPT/HCPCS: 36415; 80053; 80061

== ENCOUNTER 2023-12-24 14:41 | Outpatient (CLI) | payer OTHER, SELFPAY | END 2023-12-24 14:42 | disposition home or self-care (01) | LOC: ANHPFT 14:41 | PROVIDERS: PCP Family Medicine; Visit Provider Nurse Practitioner Family | DX: R06.09 Other forms of dyspnea (principal) | CPT/HCPCS: 94060; 94726; 94729 ==

== ENCOUNTER 2024-03-14 10:00 | Outpatient (CLI) | payer OTHER, SELFPAY ==
--- OUTSIDE RECORDS SUMMARY | 2024-03-14 10:55 | XMS_ITS | Clinical Summary ---
Author Organization [facility] Address [address] [place] [address] Care Team Providers Care Microfilm Equipment Inspector Name Role Phone Rene Agosto MD Unavailable [phone] Marion Terry NP Primary Care Pr ovider Source Comments [facility],non-owned Affiliates and Associated Physician Practices is amultiple site organization consisting of ambulatory clinics and hospital sitesin [place], [place], [place] and [place]. This disclosure is being madepursuant to the Care Everywhere program and may not contain all information available regarding this patient. Last updated 17.[facility] Allergies Active Allergy Reactions Criticality Noted Date Comments Penicillins Rash,Other High 01/13/2010 Medications * Be aware that medications may not be up to date on this document. Alwaysverify current medications with the patient. Medication Sig Dispensed Refills Start Date End Date Status FEROSUL 325 (65 Fe) MG tablet 08/09/2018 Active fluticasone-salmet isis (ADVAIR/WIXELA) 250-50 MCG/DOSE inhaler Inhale 1 puff by mouth 2 times daily Active pantoprazole EC (PROTONIX) 40 MG tabletIndications: Helicobacter pylori (H. pylori) infection TAKE 1 TABLET BY MOUTH TWICE DAILY 30 tablet 08/24/2019 Active aspirin (ASPIRIN) 81 MG chew tablet Take 1 (one) tablet by mouth once daily 30 tablet 2 04/02/2020 Active hydroCHLOROthiazid e (MICROZIDE) 12.5 MG capsule Take 1 (one) capsule by mouth once daily 30 capsule 04/01/2020 Active potassium chloride ER (KLOR-CON M) 20 MEQ tablet Take 1 (one) tablet by mouth once daily 30 tablet 04/01/2020 Active magnesium oxide (MAG-OX) 400 MG tablet Take 1 (one) tablet by mouth once daily 04/02/2020 Active levothyroxine (SYNTHROID) 100 MCG tablet Take 1 (one) tablet by mouth once daily 30 tablet 04/02/2020 Active cetirizine (ZYRTEC) 10 MG tablet 03/12/2020 Active dilTIAZem coated beads 24hr (CARDIZEM CD) 180 MG capsule 07/19/2020 Active Docusate Sodium (DSS) 100 MG 07/23/2020 Active vitamin D, ergocalciferol, (DRISDOL) 1.25 MG (54165 UT) capsule 03/12/2020 Active furosemide (LASIX) 40 MG tablet 08/27/2020 Active pindolol (VISKEN) 5 MG tablet 06/11/2020 Active HYDROcodone-acetam inophen (NORCO) 5-325 MG tablet Take 1 (one) tablet by mouth every 4 hours as needed for Pain 15 tablet 11/29/2020 Active Additional Information Patient not taking.Reported on 12/10/2020 Active Problems Problem Noted Date Diagnosed Date Hypokalemia 03/31/2020 Sinus bradycardia 03/31/2020 Episodic altered awareness 03/31/2020 Nausea without vomiting 03/31/2020 Resolved Problems Problem Noted Date Diagnosed Date Resolved Date Diarrhea 03/31/2020 04/28/2020 Immunizations Name Administration Dates Next Due Covid eblizz primary monoval ent 12+ yr 0.3mL Purple cap 04/25/2020,04/04/2020 Family History Medical History Relation Name Comments Hypertension Father Diabetes Maternal Grandfather Hypertension Mother Relation Name Status Comments Father Alive Maternal Grandfather Mother Alive Social History Tobacco Use Types Packs/Day Years Used Date Smoking Tobacco: Never Smokeless Tobacco: Never Tobacco Cessation:Counseling Given: No Alcohol Use Standard Drinks/Week Comments Never 0 (1 standard drink = 0.6 oz pur e alcohol) wine Sex and Gender Information Value Date Recorded Sex Assigned at Not on file Gender Identity Not on file Sexual Orientation Not on file Last Filed Vital Signs Vital Sign Reading Time Taken Comments Blood Pressure 110/78 12/10/2020 8:21 AM CDT Pulse 61 12/10/2020 8:21 AM CDT Temperature 36.4 ??C (97.5 ??F) 12/10/2020 8:21 AM CD T Respiratory Rate 16 12/10/2020 8:21 AM CDT Oxygen Saturation 97% 12/10/2020 8: 21 AM CDT Inhaled Oxygen Concentration - - Weight 103.8 kg (228 lb 12.8 oz) 12/10/2020 8:21 AM CDT Height 166.4 cm (5' 5.5 ) 12/10/2020 8:21 AM CDT Body Mass Index 37.5 12/10/2020 8:21 AM CDT Plan of Treatment Health Maintenance Due Date Last Done Comments COLOGUARD (AGES 45-75) - COLON CA SCREENING 1965 CT COLONOGRAPHY - COLON CA SCREENING 1966 FIT - COLON CA SCREENING 1965 FLEX SIG - COLON CA SCREENING 1966 PAP SMEAR 1966 HEPATITIS C SCREENING 06/30/1984 DTAP/TDAP/TD VACCINES (1 - Tdap) 1985 HEPATITIS B VACCINE (1 of 3 - 19+ 3-dose series) 1985 PNEUMOCOCCAL VACCINE 50+ (1 of 1 - PCV) 2016 ZOSTER VACCINE (1 of 2) 2016 MAMMOGRAM 03/04/2023 03/04/2021, 01/07/2016 SCREENING FOR DIABETES 04/01/2023 , 03/31/2020, 03/31/2020, Additional history exists COVID-19 VACCINE ( season) 2023 04/25/2020, 04/04/2020 INFLUENZA VACCINE (#1) 2023 DEPRESSION SCREENING 02/16/2024 LIPID TESTING 04/01/2025 04/01/2020 COLON MONITORING 05/25/2027 05/24/2017, 10/2017, 05/24/2017 COLONOSCOPY - COLON CA SCREENING 05/25/2027 05/24/2017, 05/24/2017, 05/24/2017 Colorectal Cancer Screening 05/25/2027 HIV SCREENING Completed 03/31/2020 HIB VACCINE Aged Out No longer eligi ble based on patient's age to complete this topic HPV VACCINE Aged Out No longer eligi ble based on patient's age to complete this topic MENINGOCOCCAL (Group B) VACCINE Aged Out No longer eligible based on patient's age to complete this topic MENINGOCOCCAL VACCINE Aged Out No addy nitza eligible based on patient's age to complete this topic Procedures Procedure Name Priority Date/Time Associated Diagnosis Comments BASIC METABOLIC PANEL (CALCIUM TOTAL) AM Draw 04/01/2020 3:52 AM FLAP PRESSER LIPID PROFILE STAT 04/01/2020 3:52 AM FLAP PRESSER Sinus bradycardia HIV-1 HIV-2 ANTIBODY + HIV P24 AG PANEL STAT 03/31/2020 12:48 PM FLAP PRESSER ENDOSCOPY, COLON, SCREENING Routine 05/24/2017 1:00 PM CDT MAMMO BILAT SCREENING Routine 01/07/2016 10:52 AM FLAP PRESSER Encounter for screening mammogram for breast cancer from Last 3 Months or Most Recently Relevant to Health Maintenance Results * (ABNORMAL) BASIC METABOLIC PANEL (CALCIUM TOTAL) (04/01/2020 3:52 AM FLAP PRESSER) Glucose 85 70 - 105 mg/dL 04/01/2020 5:06 AM [facility] Sodium 142 136 - 145 mmol/L 04/01/2020 5:06 AM [facility] Potassium 3.5 3.5 - 5.1 mmol/L 04/01/2020 5:06 AM [facility] Chloride 110(H) 98 - 107 mmol/L 04/01/2020 5:06 AM [facility] CO2 27 23 - 31 mmol/L 04/01/2020 5:06 AM [facility] Calcium 9.5 8.4 - 10.4 mg/dL 04/01/2020 5:06 AM [facility] Anion Gap 5(L) 8 - 18 mmol/L 04/01/2020 5:06 AM [facility] Comment:Attention clinician: Reference Range change. BUN 15 9.8 - 20.1 mg/dL 04/01/2020 5:06 AM [facility] Creatinine 0.92 0.57 - 1.11 mg/dL 04/01/2020 5:06 AM [facility] eGFR by MDRD >60 >60 mL/min/1.7 3m2 04/01/2020 5:06 AM [facility] eGFR by MDRD >60 >60 mL/min/1.7 3m2 04/01/2020 5:06 AM [facility] Blood BLOOD SPECIMEN / Unknown Venipuncture / Unknown 04/01/2020 3:52 AM FLAP PRESSER 04/01/2020 4:30 AM FLAP PR[facility]ER Ruchi FLORES LAB - CHEMISTRY O RDERAVICTORINO Performing Organization Address [facility] Co de Phone Number [facility] [address] [place] [address] * (ABNORMAL) LIPID PROFILE (04/01/2020 3:52 AM FLAP PRESSER) Cholesterol 224(H) <200 mg/dL 04/01/2020 5:06 AM [facility] Triglycerides 85 <150 mg/dL 04/01/2020 5:06 AM [facility] HDL Cholesterol 70 >40 mg/dL 1 5:06 AM [facility] LDL Calculated 137(H) <130 mg/dL 04/01/2020 5:06 AM [facility] VLDL Calculated 17 <=30 mg/dL 1 5:06 AM [facility] Chol HDL Ratio 3.2 <4.5 04/01/2020 5:06 AM [facility] LDL/HDL Ratio 2.0 <5.0 04/01/2020 5:06 AM [facility] Blood BLOOD SPECIMEN / Unknown Venipuncture / Unknown 04/01/2020 3:52 AM FLAP PRESSER 04/01/2020 4:30 AM FLAP PR[facility]ER Claudio Gutiérrez MD LAB - CHEMISTRY KRISTY OCAMPO Performing Organization Address City/[facility]/ZIP Co de Phone Number [facility] [address] [place] [address] * HIV-1 HIV-2 ANTIBODY + HIV P24 AG PANEL (03/31/2020 12:48 PM FLAP PRESSER) Pathologist [facility] [place] HIV1/2 Ab + P24 Ag Non Reactive Non Reactive 03/31/2020 1:39 PM FLAP PRESSER [facility] Blood BLOOD SPECIMEN / Unknown Venipuncture / Unknown 03/31/2020 12:48 PM FLAP PRESSER 03/31/2020 1:00 PM FLAP PRESSER Narrative [facility] - 03/31/2020 1:39 PM FLAP PRESSER No Laboratory evidence of HIV infection. Dennis Hargrove MD LAB - CHEMISTRY KRISTY Wright Organization Address City/State/ZIP Co de Phone Number [facility] [address] [place] [address] * ENDOSCOPY, COLON, SCREENING (05/24/2017 1:00 PM CDT) Pathologist [facility] [place] Report Endoscopy POC _ Patient Name: Dejah Kaur ?Procedure Date: 05/24/2017 1:00 PM ? Date of : 1965 ?Admit Type: Outpatient Age: 51 ? Gender: Female Attending MD: Silas Potts MD ? _ Procedure: ? Colonoscopy Indications: ? Screening for colorectal malignant neoplasm Providers: ? Silas Potts MD (Doctor), Meghana Adams RN, Es ? Terrence, Body Recall Instructor Referring MD: ?Doc Faith MD (Referring MD) Medicines: ? Monitored Anesthesia Care Complications: ? No immediate complications. _ Procedure: ? Pre-Anesthesia Assessment: ? - ASA Grade Assessment: II - A patient with mild systemic ? disease. ? - Airway Examination: Mallampati Class I (tonsillar ? pillars visualized). ? After I obtained informed consent, the scope was passed ? under direct vision. Throughout the procedure, the ? patient's blood pressure, pulse, and oxygen saturations ? were monitored continuously. The Colonoscope was ? introduced through the anus and advanced to the cecum, ? identified by appendiceal orifice and ileocecal valve. The ? colonoscopy was performed without difficulty. The patient ? tolerated the procedure well. ? Impression: ?- One 4 mm polyp in the sigmoid colon, removed with a cold ? biopsy forceps. Resected and retrieved. ? - Three 3 mm polyps in the rectum, removed with a cold ? biopsy forceps. Resected and retrieved. ? - Diverticulosis. Findings: ? A 4 mm polyp was found in the sigmoid colon. The polyp was sessile. The ? polyp was removed with a cold biopsy forceps. Resection and retrieval ? were complete. Estimated blood loss: none. ? Three sessile polyps were found in the rectum. The polyps were 3 mm in ? size. These polyps were removed with a cold biopsy forceps. Resection ? and retrieval were complete. ? Diverticula were found in the colon. _ Recommendation: ?- Await pathology results. ? - Repeat colonoscopy in 5-10 years for surveillance based ? on pathology results. ? Procedure Code(s): ? --- Professional --- ? 43763, Colonoscopy, flexible; with biopsy, single or multiple ? --- Technical --- ? 36698, Colonoscopy, flexible; with biopsy, single or multiple Diagnosis Code(s): ? --- Professional --- ? Z12.11, Encounter for screening for malignant neoplasm of colon ? D12.5, Benign neoplasm of sigmoid colon ? K62.1, Rectal polyp ? K57.30, Diverticulosis of large intestine without perforation or abscess ? without bleeding ? --- Technical --- ? Z12.11, Encounter for screening for malignant neoplasm of colon ? D12.5, Benign neoplasm of sigmoid colon ? K62.1, Rectal polyp ? K57.30, Diverticulosis of large intestine without perforation or abscess ? without bleeding CPT copyright 2015 [employer]. All rights reserved. 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 Silas Potts MD 05/24/2017 1:28:42 PM This report has been signed electronically. Number of Addenda: 0 Note Initiated On: 05/24/2017 1:00 PM [facility] END[facility] 05/24/2017 1:00 PM CDT Silas Potts MD GI PROCEDURE ORDERAB LES [facility] ENDOSCOPY * MAMMO SCREENING DIGITAL IMAGE BILAT G0202 (01/07/2016 10:52 AM FLAP PRESSER) Anatomical Region Laterality Modality Breast Bilateral Mammography 01/22/2016 11:3 0 AM FLAP PRESSER Addenda Addendum by Noemí Martin MD on 02/24/2016 5:22 PM FLAP PRESSER Previous mammograms from [facility] on 02/05/2015, 06/09/2012, 05/11/2011, and 04/09/2010 are now available for review. ??The mass in the upper central right breast is unchanged from the previous mammograms and is considered benign. ??The new impression, assessment, and recommendation should be as follows: IMPRESSION: No evidence of malignancy in either breast. ASSESSMENT: BIRADS Category 2: Benign finding(s). RECOMMENDATION: Bilateral screening mammogram in one year. Impressions 01/22/2016 12:13 PM FLAP PRESSER Questioned mass in the upper outer right breast. No evidence of malignancy in the left breast. ASSESSMENT: BIRADS Category 0: Incomplete - Needs additional imaging evaluation. RECOMMENDATION: Right breast targeted ultrasound and possible mammography. Thank you for allowing us to participate in the care of your patient. [facility] utilizes [employer] as a reminder system to notify patients of their next recommended mammogram. Narrative 01/22/2016 12:13 PM FLAP PRESSER EXAMINATION: Digital screening mammogram on 01/07/2016. Computer assisted detection was utilized. PRIOR: Attempt was made to retrieve prior images from [facility]; however, none were available. 04/09/2010 diagnostic right breast mammography. BREAST PARENCHYMAL DENSITY: The breasts are heterogeneously dense, which may obscure small masses. FINDINGS: Questioned mass in the upper outer right breast. There are surgical clips in the upper outer posterior right breast/low right axilla. No suspicious masses, areas of architectural distortion or microcalcifications are evident in the left breast. Procedure Note Sonia Velez MD / Noemí Martin MD - 01/22/2016 EXAMINATION: Digital screening mammogram on 01/07/2016. Computer assisted detection was utilized. PRIOR: Attempt was made to retrieve prior images from [facility]; however, none were available. 04/09/2010 diagnostic right breast mammography. BREAST PARENCHYMAL DENSITY: The breasts are heterogeneously dense, which may obscure small masses. FINDINGS: Questioned mass in the upper outer right breast. There are surgical clips in the upper outer posterior right breast/low right axilla. No suspicious masses, areas of architectural distortion or microcalcifications are evident in the left breast. IMPRESSION Questioned mass in the upper outer right breast. No evidence of malignancy in the left breast. ASSESSMENT: BIRADS Category 0: Incomplete - Needs additional imaging evaluation. RECOMMENDATION: Right breast targeted ultrasound and possible mammography. Thank you for allowing us to participate in the care of your patient. [facility] utilizes [employer] as a reminder system to notify patients of their next recommended mammogram. Doc Faith Jr., MD MAMMO ORDERABL ES from Last 3 Months or Most Recently Relevant to Health Maintenance Advance Directives * Full Code (Latest Code Status on File) Date Activated Date Inactivated Comments 03/31/2020 1:37 PM 04/01/2020 5:37 PM Care Teams Microfilm Equipment Inspector Relationship Specialty Start Date End Date Marion Terry FORENSIC TECHNICIAN [address] [place] [address] PCP - General 09/12/21 Rene Agosto MD Radiopharmacist Cardiology 12/04/14
--- OUTSIDE RECORDS SUMMARY | 2024-03-14 10:55 | XMS_ITS | Referral Summary ---
Author Organization [facility] [employer] Address [address] [place] [address] Care Team Providers Care Sports Media Name Role Phone Rene Agosto MD Unavailable [phone] Marion Terry NP Primary Care Pr ovider Source Comments [facility],non-owned Affiliates and Associated Physician Practices is amultiple site organization consisting of ambulatory clinics and hospital sitesin [place] and [place]. This disclosure is being madepursuant to the Care Everywhere program and may not contain all information available regarding this patient. Last updated 17.[facility] Allergies Active Allergy Reactions Criticality Noted Date [...] Active vitamin D, ergocalciferol, (DRISDOL) 1.25 MG (02172 UT) capsule 03/12/2020 Active furosemide (LASIX) 40 [...] 04/28/2020 Immunizations Name Administration Dates Next Due [facility] [address] primary monoval ent 12+ yr 0.3mL Purple cap 04/25/2020,04/04/2020 Social History Tobacco Use Types Packs/Day Years [...] 8:21 AM CDT Oxygen Saturation 97% 12/10/2020 8:21 AM CDT Inhaled Oxygen Concentration - - Weight 103.8 kg (228 lb 12.8 oz) 12/10/2020 8:21 AM CDT Height 166.4 cm (5' 5.5 ) 12/10/2020 8:21 AM CDT Body Mass Index 37.5 12/10/2020 8:21 AM CDT Functional Status Functional Status Response Date of Assess ment Is person deaf or have serious hearing difficult y? No 03/31/2020 Is person blind or have serious difficulty seein g? No 03/31/2020 Does person have serious dif ficulty walking/climbing stairs? No 03/31/2020 Does person have difficulty dressing/bathing? No 03/31/2020 Does person have difficulty doing errands alone? No 03/31/2020 Cognitive Status Response Date of Assessm ent Does person have difficulty concentrating/remembering/making decisions? No 03/31/2020 Plan of Treatment Not on file Procedures Procedure Name Priority Date/Time Associated Diagnosis Comments BASIC METABOLIC PANEL (CALCIUM TOTAL) AM Draw 04/01/2020 3:52 AM STAPLER MACHINE LIPID PROFILE STAT 04/01/2020 3:52 AM [facility]LER MACHINE Sinus bradycardia HIV-1 HIV-2 ANTIBODY + HIV P24 AG PANEL STAT 03/31/2020 12:48 PM [facility]ER MACHINE ENDOSCOPY, COLON, SCREENING Routine 05/24/2017 1:00 PM CDT MAMMO BILAT SCREENING Routine 01/07/2016 10:52 AM STAPLER MACHINE Encounter for screening mammogram for breast cancer from Last 3 Months or Most Recently Relevant to Health Maintenance Results * (ABNORMAL) BASIC METABOLIC PANEL (CALCIUM TOTAL) (04/01/2020 3:52 AM STAPLER MACHINE) Glucose 85 70 - 105 mg/dL 04/01/2020 5:06 AM [facility] Sodium 142 136 - 145 mmol/L 04/01/2020 5:06 AM [facility] Potassium 3.5 3.5 - 5.1 mmol/L 04/01/2020 5:06 AM [facility] Chloride 110(H) 98 - 107 mmol/L 04/01/2020 5:06 AM [facility] CO2 27 23 - 31 mmol/L 04/01/2020 5:06 AM [facility] Calcium 9.5 8.4 - 10.4 mg/dL 04/01/2020 5:06 AM [facility] Anion Gap 5(L) 8 - 18 mmol/L 04/01/2020 5:06 AM [facility] Comment:Attention clinician: Reference Range change. BUN 15 9.8 - 20.1 mg/dL 04/01/2020 5:06 AM [facility] Creatinine 0.92 0.57 - 1.11 mg/dL 04/01/2020 5:06 AM [facility] eGFR by MDRD >60 >60 mL/min/1.7 3m2 04/01/2020 5:06 AM [facility] eGFR by MDRD >60 >60 mL/min/1.7 3m2 04/01/2020 5:06 AM [facility] Blood BLOOD SPECIMEN / Unknown Venipuncture / Unknown 04/01/2020 3:52 AM [facility]ER MACHINE 04/01/2020 4:30 AM [facility] Ruchi Godinez APRN-SOUND RECORDING TECHNICIAN LAB - CHEMISTRY O RDERABLES [facility] [address] [place] [address] * (ABNORMAL) LIPID PROFILE (04/01/2020 3:52 AM [facility]) Cholesterol 224(H) <200 mg/dL 04/01/2020 5:06 AM [facility] Triglycerides 85 <150 mg/dL 04/01/2020 5:06 AM [facility] HDL Cholesterol 70 >40 mg/dL 5:06 AM [facility] LDL Calculated 137(H) <130 mg/dL 04/01/2020 5:06 AM [facility] MACHINE [facility] VLDL Calculated 17 <=30 mg/dL 5:06 AM [facility]ER MACHINE [facility] Chol HDL Ratio 3.2 <4.5 04/01/2020 5:06 AM [facility]LER MACHINE [facility] LDL/HDL Ratio 2.0 <5.0 04/01/2020 5:06 AM [facility]ER MACHINE [facility] Blood BLOOD SPECIMEN / Unknown Venipuncture / Unknown 04/01/2020 3:52 AM ST[facility]LER MACHINE 04/01/2020 4:30 AM [facility]ACHINE Claudio Gutiérrez MD LAB - CHEMISTRY KRISTY OCAMPO Performing Organization Address City/[facility] Co de Phone Number [facility] [address] [place] [address] * HIV-1 HIV-2 ANTIBODY + HIV P24 AG PANEL (03/31/2020 12:48 PM STAPLER MACHINE) Pathologist [facility] HIV1/2 Ab + P24 Ag Non Reactive Non Reactive 03/31/2020 1:39 PM ST[facility]ER MACHINE [facility] Blood BLOOD SPECIMEN / Unknown Venipuncture / Unknown 03/31/2020 12:48 PM [facility]ER MACHINE 03/31/2020 1:00 PM [facility]ER MACHINE Narrative [facility] - 03/31/2020 1:39 PM ST[facility]ER MACHINE No Laboratory evidence of HIV infection. Dennis Hargrove MD LAB - CHEMISTRY KRISTY OCAMPO Performing Organization Address City/[facility]/ZIP Co de Phone Number [facility] [address] [place], [place] [address] * ENDOSCOPY, COLON, SCREENING (05/24/2017 1:00 PM CDT) Report Endoscopy POC _ Patient Name: Dejah Obrien ?Procedure Date: 05/24/2017 1:00 PM ? Date of : 1965 ?Admit Type: Outpatient Age: 51 ? Gender: Female Attending MD: Silas Potts MD ? _ Procedure: ? Colonoscopy Indications: ? Screening for colorectal malignant neoplasm Providers: ? Silas Potts MD (Doctor), Meghana Adams RN, Es ? Terrence, Overhead Crane Inspector Referring MD: ?Doc Faith MD (Referring MD) [...] Procedure Code(s): ? --- Professional --- ? 79611, Colonoscopy, flexible; with biopsy, single or multiple ? --- Technical --- ? 71593, Colonoscopy, flexible; with biopsy, single or multiple [...] abscess ? without bleeding CPT copyright 2015 [employer]. All rights reserved. The codes documented in this report are preliminary and upon finance officer review may be revised to meet current compliance requirements. Silas Potts MD 05/24/2017 1:28:42 PM This report has been signed electronically. Number of Addenda: 0 Note Initiated On: 05/24/2017 1:00 PM [facility] END[facility] 05/24/2017 1:00 PM CDT Silas Potts MD GI PROCEDURE ORDERAB LES [facility] ENDOSCOPY * MAMMO SCREENING DIGITAL IMAGE BILAT G0202 (01/07/2016 10:52 AM STAPLER MACHINE) Anatomical Region Laterality Modality Breast Bilateral Mammography 01/22/2016 11:3 0 AM [facility]ER MACHINE Addenda Addendum by Noemí Martin MD on 02/24/2016 5:22 PM ST[facility]LER MACHINE Previous mammograms from [facility] on 02/05/2015, 06/09/2012, 05/11/2011, and 04/09/2010 are [...] in one year. Impressions 01/22/2016 12:13 PM [facility]LER MACHINE Questioned mass in the upper outer right breast. No evidence of malignancy in the left breast. ASSESSMENT: BIRADS Category 0: Incomplete - Needs additional imaging evaluation. RECOMMENDATION: Right breast targeted ultrasound and possible mammography. Thank you for allowing us to participate in the care of your patient. [facility] utilizes [employer] as a reminder system to notify patients of their next recommended mammogram. Narrative 01/22/2016 12:13 PM [facility] MACH[facility] EXAMINATION: Digital screening mammogram on 01/07/2016. Computer assisted detection was utilized. PRIOR: Attempt was made to retrieve prior images from [facility]; however, none were available. 04/09/2010 diagnostic [...] was made to retrieve prior images from [facility]; however, none were available. 04/09/2010 diagnostic [...] participate in the care of your patient. [facility] utilizes [employer] as a reminder system to notify patients of their next recommended mammogram. Doc Faith Jr., MD MAMMO ORDERABL ES from Last 3 Months or Most Recently Relevant to Health Maintenance Administered Medications Advance Directives * Full Code (Latest Code Status on File) Date Activated Date Inactivated Comments 03/31/2020 1:37 PM 04/01/2020 5:37 PM Care Teams Sports Media Relationship Specialty Start Date End Date Marion Terry POSITIVE PRINTER OPERATOR [address] [place] [address] PCP - General 09/12/21 Rene Agosto MD Color Sprayer Cardiology 12/04/14
--- OUTSIDE RECORDS SUMMARY | 2024-03-14 10:55 | XMS_ITS | Encounter Summary ---
Author Organization [facility] Address [address] [place] [address] Care Team Providers Care Hatchery Helper Name Role Phone Rene Agosto MD Unavailable [phone] Marion Terry NP Primary Care Pr ovider Encounter Details Date Type Department Care Team (Late st Contact Info) Description 09/12/2021 Lab Requisition [facility] [address] [place] [id number] [place] [id number] [place] [id number] Social History Tobacco Use Types Packs/Day Years Used Date Smoking Tobacco: Never Smokeless Tobacco: Never Alcohol Use Standard Drinks/Week Comments Never 0 (1 standard drink = 0.6 oz pur e alcohol) wine Sex and Gender Information Value Date Recorded Sex Assigned at Not on file Gender Identity Not on file Sexual Orientation Not on file documented as of this encounter Functional Status Functional Status Response Date of [...] person have difficulty concentrating/remembering/making decisions? No 03/31/2020 documented as of this encounter Plan of Treatment Not on file documented as of this encounter Procedures Procedure Name Priority Date/Time Associated Diagnosis Comments DERMATOPATHOLOGY Routine 09/11/2021 12:0 0 AM CDT documented in this encounter Results * DERMATOPATHOLOGY (09/11/2021 12:00 AM CDT) Case Report Dermatopathology Report ? Case: [id number] ? Authorizing Provider: ??Gerson Walsh MD ?Collected: ? 09/11/2021 12:00 AM ? Ordering Location: ? [facility] ?Received: ?09/12/2021 11:53 AM ? Pathologist: ? Tash Garcia MD ? Specimen: ?Skin, right frontal scalp ? 2 1:40 PM CDT DERMATOPATHOLOGY LABORATORY Final Diagnosis Specimen A. 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 The specimen consists of a punch biopsy measuring [id number]. Jar 0. 2 1:40 PM CDT DERMATOPATHOLOGY LABORATORY Microscopic Description Specimen A. SKIN, right frontal scalp: The specimen is submitted per alopecia protocol. There is a shift from anagen to non-anagen hairs. There is an overall decrease in follicular size as well as an increased number of vellus hairs. No follicular units are replaced by fibrosis. Sebaceous glands are present. A mild perifollicular lymphocytic inflammatory infiltrate is present in the superficial dermis. Definitive peribulbar inflammation is not seen. Additional findings include scattered fibrous stellae. The epidermis is normal. Original and deeper sections were reviewed. COMMENT: These histologic features are consistent with a nonscarring alopecia. The differential diagnosis includes androgenetic alopecia and less likely alopecia areata. Clinical correlation is recommended. 2 1:40 PM CDT DERMATOPATHOLOGY LABORATORY Disclaimer An external and internal positive and negative controls are appropriate for the histochemical, immunohistochemical and immunofluorescence stain(s) in this case (if any), except where stated explicitly. The performance characteristics of the stain(s) cited in this report were developed and its performance characteristic determined by the Dermatopathology Laboratory at [facility], directed by Dr. Saul Prajapati. These tests need not be, and therefore are not, approved by the [place] Food and Drug Administration. The tests are used for clinical purposes. Billing Codes Specimen Charges Stain Charges 54272 1 2 1:40 PM CDT DERMATOPATHOLOGY LABORATORY Embedded Images 2 1:40 PM CDT DERMATOPATHOLOGY LABORATORY Pathology/Cytolog y TISSUE SPECIMEN FROM SKIN / Unknown 09/11/2021 09/12/2021 11:53 AM CDT Gerson Walsh MD LAB - PATHOLOGY/CY TOLOGY ORDERABLES DERMATOPATHOLOGY LABORATORY [facility] - Department of Dermatology [facility] [address] [place], [place] [address] [phone] documented in this encounter Visit Diagnoses Not on filedocumented in this encounter Care Teams Hatchery Helper Relationship Specialty Start Date End Date Marion Terry NP [address] [place] [address] PCP - General 09/12/21 Rene Agosto MD Radar Scientist Cardiology 12/04/14 documented as of this encounter
--- OUTSIDE RECORDS SUMMARY | 2024-03-14 10:55 | XMS_ITS | Patient Health Summary ---
Author Organization [facility] Address [address] [place] [address] Care Team Providers Care Sports Trainer Name Role Phone Rene Agosto MD Unavailable [phone] Marion Terry NP Primary Care Pr ovider Note from [facility][note 3],non-owned Affiliates and Associated Physician Practices is amultiple site organization consisting of ambulatory clinics and hospital sitesin [place], [place], [place] and [place]. This disclosure is being madepursuant to the Care Everywhere program and may not contain all information available regarding this patient. Last updated 17.[facility] Allergies * Penicillins(Rash,Other) -High Criticality Medications * Be aware that medications may not be up to date on this document. Alwaysverify current medications with the patient. * FEROSUL 325 (65 Fe) MG tablet(Started 08/09/2018) * fluticasone-salmeterol (ADVAIR/WIXELA) 250-50 MCG/DOSE inhaler Inhale 1 puff by mouth 2 times daily * pantoprazole EC (PROTONIX) 40 MG tablet(Started 08/24/2019) TAKE 1 TABLET BY MOUTH TWICE DAILY * aspirin (ASPIRIN) 81 MG chew tablet(Started 04/02/2020) Take 1 (one) tablet by mouth once daily 2 refills by 04/01/2021 * hydroCHLOROthiazide (MICROZIDE) 12.5 MG capsule(Started 04/01/2020) Take 1 (one) capsule by mouth once daily * potassium chloride ER (KLOR-CON M) 20 MEQ tablet(Started 04/01/2020) Take 1 (one) tablet by mouth once daily * magnesium oxide (MAG-OX) 400 MG tablet(Started 04/02/2020) Take 1 (one) tablet by mouth once daily * levothyroxine (SYNTHROID) 100 MCG tablet(Started 04/02/2020) Take 1 (one) tablet by mouth once daily * cetirizine (ZYRTEC) 10 MG tablet(Started 03/12/2020) * dilTIAZem coated beads 24hr (CARDIZEM CD) 180 MG capsule(Started 07/19/2020) * Docusate Sodium (DSS) 100 MG(Started 07/23/2020) * vitamin D, ergocalciferol, (DRISDOL) 1.25 MG (75100 UT) capsule(Started 03/12/2020) * furosemide (LASIX) 40 MG tablet(Started 08/27/2020) * pindolol (VISKEN) 5 MG tablet(Started 06/11/2020) * HYDROcodone-acetaminophen (NORCO) 5-325 MG tablet(Started 11/29/2020) Take 1 (one) tablet by mouth every 4 hours as needed for Pain Active Problems Problem Noted Date Diagnosed Date Hypokalemia 03/31/2020 Sinus bradycardia 03/31/2020 Episodic altered awareness 03/31/2020 Nausea without vomiting 03/31/2020 Resolved Problems Problem Noted Date Diagnosed Date Resolved Date Diarrhea 03/31/2020 04/28/2020 Immunizations * Covid Pfizer primary monovalent 12+ yr 0.3mL Purple cap(Given 04/25/2020, 04/04/2020) Social History Tobacco Use Types Packs/Day Years [...] Mass Index 37.5 12/10/2020 8:21 AM CDT Procedures * DERMATOPATHOLOGY(Performed 09/11/2021) * CARDIAC RHYTHM STRIP ORDER(Performed 12/05/2020) * MAMMO BREAST RIGHT SPECIMEN(Performed 11/29/2020) Performed for Breast mass, right * PATHOLOGY TISSUE EXAM (STL)(Performed 11/29/2020) Performed for Diagnosis unknown * RI EXC BREAST CYST OPEN 1 OR MORE LESIONS(Performed 11/29/2020) Performed for Diagnosis unknown * MAMMO RIGHT NEEDLE LOCALIZATION(Performed 11/13/2020) Performed for Abnormal mammogram, Breast mass, Intraductal papilloma of right breast * CARDIAC RHYTHM STRIP ORDER(Performed 04/05/2020) * NM MYOCARD PERF REST STRESS(Performed 04/01/2020) Performed for Sinus bradycardia * STRESS TEST LEXISCAN (NUCLEAR)(Performed 04/01/2020) Performed for Sinus bradycardia * T4 FREE DIRECT REFLEXED(Performed 04/01/2020) Performed for Sinus bradycardia * LIPID PROFILE(Performed 04/01/2020) Performed for Sinus bradycardia * TSH REFLEX FREE T4(Performed 04/01/2020) Performed for Sinus bradycardia * CBC W AUTO DIFFERENTIAL(Performed 04/01/2020) * BASIC METABOLIC PANEL (CALCIUM TOTAL)(Performed 04/01/2020) * POTASSIUM BLOOD(Performed 03/31/2020) * TROPONIN I(Performed 03/31/2020) * SARS-COV-2 (COVID-19) IN HOUSE(Performed 03/31/2020) * CT HEAD WO CONTRAST(Performed 03/31/2020) Performed for Episodic altered awareness * EKG 12-LEAD(Performed 03/31/2020) Performed for Diarrhea, unspecified type * T4 FREE DIRECT REFLEXED(Performed 03/31/2020) * TSH REFLEX FREE T4(Performed 03/31/2020) * LACTIC ACID BLOOD(Performed 03/31/2020) * PROLACTIN(Performed 03/31/2020) * HIV-1 HIV-2 ANTIBODY + HIV P24 AG PANEL(Performed 03/31/2020) * GLUCOSE - POINT OF CARE(Performed 03/31/2020) * XR CHEST 1VW PORTABLE(Performed 03/31/2020) Performed for Nausea without vomiting, Diarrhea, unspecified type * MAGNESIUM BLOOD(Performed 03/31/2020) * CK BLOOD(Performed 03/31/2020) * HCG BLOOD QUALITATIVE(Performed 03/31/2020) * TROPONIN I(Performed 03/31/2020) * COMPREHENSIVE METABOLIC PANEL(Performed 03/31/2020) * CBC W AUTO DIFFERENTIAL(Performed 03/31/2020) * EKG 12-LEAD(Performed 03/31/2020) Performed for Nausea without vomiting, Diarrhea, unspecified type * PATHOLOGY TISSUE(Performed 01/09/2019) Performed for Dyspepsia * RI ED EGD FLEX TRANSORAL DX(Performed 01/09/2019) Performed for Dyspepsia * EGD(Performed 01/09/2019) * CBC W AUTO DIFFERENTIAL(Performed 11/18/2018) * COMPREHENSIVE METABOLIC PANEL(Performed 11/18/2018) * CT ABDOMEN PELVIS WO CONTRAST(Performed 06/21/2018) Performed for Right upper quadrant abdominal pain * URINALYSIS AUTO - POINT OF CARE (AMB) SLU(Performed 06/07/2018) Performed for Urinary frequency * PATHOLOGY TISSUE EXAM (STL)(Performed 05/24/2017) Performed for Diagnosis unknown * COLONOSCOPY BIOPSY (ANY METHOD)(Performed 05/24/2017) Performed for Diagnosis unknown * COLONOSCOPY SCREEN(Performed 05/24/2017) Performed for Diagnosis unknown * ENDOSCOPY, COLON, SCREENING(Performed 05/24/2017) * US BREAST RIGHT LTD(Performed 03/04/2016) Performed for Abnormal mammogram * MAMMO RIGHT DIAGNOSTIC(Performed 03/04/2016) Performed for Abnormal mammogram * IMAGING/RADIOLOGY/XRAY RESULTS ORDER(Performed 02/26/2016) * MAMMO BILAT SCREENING(Performed 01/07/2016) Performed for Encounter for screening mammogram for breast cancer * PFT-LAB(Performed 09/06/2014) Performed for Dyspnea, Sleep apnea, Dysphonia * CARDIAC EKG ORDER(Performed 08/31/2011) * CARDIAC ECHOCARDIOGRAM COMPLETE ORDER(Performed 08/31/2011) * CARDIAC EKG ORDER(Performed 07/10/2011) * XR CHEST 1VW PORTABLE(Performed 07/09/2011) Performed for Palpitations * PT PTT PANEL(Performed 07/09/2011) * MYOGLOBIN BLOOD(Performed 07/09/2011) * TROPONIN I(Performed 07/09/2011) * MAGNESIUM BLOOD(Performed 07/09/2011) * COMPREHENSIVE METABOLIC PANEL(Performed 07/09/2011) * CBC W AUTO DIFFERENTIAL(Performed 07/09/2011) * EKG 12-LEAD(Performed 07/09/2011) Performed for Palpitations * IMAGING/RADIOLOGY/XRAY RESULTS ORDER(Performed 04/14/2010) * MAMMO RIGHT DIAGNOSTIC(Performed 04/09/2010) Performed for Abnormal mammogram, unspecified * CT CHEST PELVIS W CONT ABD WWO(Performed 02/12/2010) Performed for Pulmonary embolism and infarction * CARDIAC RHYTHM STRIP ORDER(Performed 01/22/2010) * XR CHOLANGIOGRAM OPERATIVE(Performed 01/16/2010) Performed for Cholecystitis * POTASSIUM BLOOD(Performed 01/16/2010) * GROSS + MICRO EXAM(Performed 01/16/2010) * GROSS + MICRO EXAM(Performed 01/16/2010) * EKG 12-LEAD(Performed 01/16/2010) Performed for Heart murmur Results * DERMATOPATHOLOGY (09/11/2021 12:00 AM CDT) Case Report Dermatopathology Report ? Case: [id number] ? Authorizing Provider: ??Gerson Walsh MD ?Collected: ? 09/11/2021 12:00 AM ? Ordering Location: ? [facility] ?Received: ?09/12/2021 11:53 AM ? Pathologist: ? Tash Garcia MD ? Specimen: ?Skin, right frontal scalp ? 2 1:40 PM T DERMATOPATHOLOGY LABORATORY Final Diagnosis Specimen A. SKIN, right frontal scalp: NON-SCARRING ALOPECIA (L65.8) (see microscopic description and comment) 2 1:40 PM [facility] Clinical History R/O Alopecia, Androgenic alopecia, Alopecia areata, Lichen Planopilaris 2 1:40 PM T DERMATOPATHOLOGY LABORATORY Gross Description Specimen A: Received is one formalin filled container labeled with the patient's name and designated right frontal scalp. The specimen consists of a punch biopsy measuring 4q2q3od. Jar 0. 1:40 PM T DERMATOPATHOLOGY LABORATORY Microscopic Description Specimen A. SKIN, [...] Clinical correlation is recommended. 2 1:40 PM T DERMATOPATHOLOGY LABORATORY Disclaimer An external and internal positive and negative controls are appropriate for the histochemical, immunohistochemical and immunofluorescence stain(s) in this case (if any), except where stated explicitly. The performance characteristics of the stain(s) cited in this report were developed and its performance characteristic determined by the Dermatopathology Laboratory at [facility], directed by Dr. Saul Prajapati. These tests need not be, and therefore are not, approved by the [place] Food and Drug Administration. The tests are used for clinical purposes. Billing Codes Specimen Charges Stain Charges 83125 1 2 1:40 PM CDT DERMATOPATHOLOGY LABORATORY Embedded Images 2 1:40 PM CDT DERMATOPATHOLOGY LABORATORY Pathology/Cytolog y TISSUE SPECIMEN FROM SKIN / Unknown 09/11/2021 09/12/2021 11:53 AM CDT Gerson Walsh MD LAB - PATHOLOGY/CY TOLOGY ORDERABLES DERMATOPATHOLOGY LABORATORY [facility] - Department of Dermatology [address], [address] [phone] * CARDIAC RHYTHM STRIP ORDER (12/05/2020 7:54 AM CDT) Only the most recent of3 resultswithin the time period is included. Narrative 12/05/2020 7:54 AM CDT Ordered by an unspecified provider. Scanned Document CARDIAC SERVICES ORD ERABLES * MAMMO BREAST RIGHT SPECIMEN (11/29/2020 10:25 AM CDT) Anatomical Region Laterality Modality Breast Right Mammography 11/29/2020 10:4 0 AM CDT Impressions 11/29/2020 10:42 AM CDT Specimen radiograph as above. *Reading Radiologist: Antoinette Rosenberg on 11/29/2020 at 10:42 AM Narrative 11/29/2020 10:42 AM CDT SPECIMEN RADIOGRAPH - RIGHT BREAST DATE: 11/29/2020 HISTORY: 55-year-old female status post excision of biopsy-proven papilloma COMPARISON: 11/13/2020 FINDINGS: Specimen radiography confirms the presence of the Magseed and biopsy clip in the specimen. Audra Ryan MD MAMMO ORDERABLES * PATHOLOGY TISSUE EXAM (STL) (11/29/2020 8:11 AM CDT) Only the most recent of2 resultswithin the time period is included. Case Report Surgical Pathology Report ? Case: [id number] ? Authorizing Provider: ??Audra Ryan MD ? Collected: ? 11/29/2020 08:11 AM ? Ordering Location: ? [facility] ? Received: ?11/29/2020 08:44 AM ? Pathologist: ? Lulú Ovalles MD ? Specimen: ?Breast Mass, Right Breast Mass; ink markings as on sticker ? 12/03/2020 9:44 AM CDT [facility] Final Diagnosis Breast, right, mass, excision - Intraductal papilloma with usual ductal hyperplasia - Focal calcifications in benign breast parenchyma - Focal radial scar - Biopsy site changes 12/03/2020 9:44 AM CDT [facility] Clinical History The patient is a 55-year-old woman. Operative procedure:excision of breast mass. 12/03/2020 9:44 AM CDT [facility] Gross Description Received fresh, then placed in formalin and labeled as right breast mass, ink markings as on a sticker is a 16.45 g, 4.5 cm superior to inferior, 1 cm anterior to posterior and 3.5 cm medial to lateral breast mass. The specimen came already inked as follows: Anterior-green, posterior-black, superior-red, inferior-blue, medial-yellow, lateral-yellow. The specimen is sectioned into 6 slices to reveal a 1 x 0.8 x 0.3 cm, clancy-white cystic lesion on slice #3 and slice #4, 0.5 cm from the anterior margin, 0.8 cm from medial margin, 1.4 cm from the superior margin, 1 cm from inferior margin, 1 cm from the posterior margin and 1.5 cm from lateral margin. Biopsy clip is located on slice #3. Milk Pasteurizer sections are submitted as follows: A1-A2-slice #2 with the mass, A3-A4-slice #3 , A5-A6 adjacent superior slice, A7-A8 adjacent inferior slice. Ischemia time: 43 minutes Time collected: 11/29/2020 8 11 AM Total time in formalin: 29 hours MA 12/03/2020 9:44 AM [facility] Microscopic Description Microscopic examination substantiates the above diagnosis. p63 and [facility] immunostains (controls adequate) highlight retained myoepithelial cells in the area of intraductal papilloma with superimposed biopsy site changes. 12/03/2020 9:44 AM [facility] Disclaimer All histochemical and/or immunohistochemical results are interpreted with controls that demonstrate appropriate staining reactions before reporting results. Note on use of immunocytochemistry reagents: This test was developed and its performance characteristic determined by [facility], Department of Laboratory Medicine. It has not been cleared or approved by the U.S. Food and Drug Administration (FDA). The FDA has determined that such clearance or approval is not necessary. The test is used for clinical purpose. It should not be regarded as investigational or for research. This laboratory is certified to perform high complexity testing. The performance characteristics of the IHC/SUPA assays have been validated on formalin-fixed paraffin embedded tissues only. The assays have not been validated on decalcified tissues. Results should be interpreted with caution. 12/03/2020 9:44 AM [facility] Embedded Images 12/03/2020 9:44 AM [facility] Pathology/Cytolo gy SPECIMEN FROM BREAST OBTAINED BY INCISIONAL BIOPSY OF BREAST MASS / Unknown 11/29/2020 8:11 AM CDT 11/29/2020 8:44 AM CDT Comment:Pre-op diagnosis: Diagnosis unknown [[id number]] Audra Ryan MD LAB - PATHOLOGY/CYT OLOGY ORDERABLES [facility] [address] [place] [address] * MAMMO RIGHT MAGSEED LOCALIZATION (11/13/2020 11:58 AM CDT) Anatomical Region Laterality Modality Breast Right Mammography 11/13/2020 2:01 PM CDT Impressions 11/13/2020 2:02 PM CDT Successful Magseed localization of the area of interest within the RIGHT breast using mammographic guidance. *Reading Radiologist: Bree Macias on 11/13/2020 at 2:02 PM Narrative 11/13/2020 2:02 PM CDT EXAMINATION: RIGHT BREAST MAGSEED LOCALIZATION UTILIZING MAMMOGRAPHIC GUIDANCE HISTORY: History of papilloma in the right breast. ??She is here for Magseed placement in preparation for future surgery. PROCEDURE AND FINDINGS: The procedure was discussed with the patient and informed consent was obtained. The breast was placed in a compression grid, and the area of interest was localized with digital mammography. ??After sterile preparation of the skin, 1% lidocaine was utilized for local anesthesia. A Magseed system was advanced into the area of interest in the breast from ??a superior approach utilizing digital mammographic guidance. Orthogonal views were obtained to confirm appropriate Magseed position. The patient tolerated the procedure well and there was no evidence of immediate complication. ??Full view images were taken for the surgeon, and the patient then left the department. The attending radiologist, Dr. Macias, was present throughout the entire procedure. Audra Ryan MD MAMMO ORDERABLES * NM MYOCARD PERFUSION SPECT STRESS AND REST (04/01/2020 11:22 AM PROTECTIVE SIGNAL REPAIRER) Anatomical Region Laterality Modality Chest Nuclear Medicine 04/01/2020 11:2 8 AM PROTECTIVE SIGNAL REPAIRER Impressions 04/01/2020 11:29 AM PROTECTIVE SIGNAL REPAIRER Unremarkable myocardial perfusion scan and motion study. *Reading Radiologist: Jessenia Brian on 04/01/2020 at 11:29 AM Narrative 04/01/2020 11:29 AM [facility] NM Myocardial SPECT Scan Indication: Bradycardia and hypertension Technique: A resting study is carried out with 10 ?? mCi Tc Myoview. Patient is then injected with 0.4 ?mg adenosine followed by 30 ?mCi Tc Myoview. A preliminary stress test report indicates no chest pain, EKG changes, or arrhythmias. Findings: No fixed or reversible perfusion defects are demonstrated. Left ventricular ejection fraction is 70 ?? %. There is normal appearing left ventricular wall motion and volume. Procedure Note Jessenia Brian MD - 04/01/2020 NM Myocardial SPECT Scan Indication: Bradycardia and hypertension Technique: A resting study is carried out with 10 mCi Tc Myoview. Patient is then injected with 0.4 mg adenosine followed by 30 mCi Tc Myoview. A preliminary stress test report indicates no chest pain, EKG changes, or arrhythmias. Findings: No fixed or reversible perfusion defects are demonstrated. Left ventricular ejection fraction is 70 %. There is normal appearing left ventricular wall motion and volume. IMPRESSION Unremarkable myocardial perfusion scan and motion study. *Reading Radiologist: Jessenia Brian on 04/01/2020 at 11:29 AM Claudio Gutiérrez MD OR ORDERABLES * STRESS TEST LEXISCAN (NUCLEAR) (04/01/2020 10:09 AM [facility]) [facility] Stress Test Summary For full formatted report, please see the report link in the order. Acquisition Time: 2020-04-01 ??10:09:00 Total Exercise Time: 00:01:30 Test Indications: Syncope, BRADYCARDIA Medications: Protocol: LEXISCAN ? Max HR: 113 BPM ??67% of ??Pred: 167 BPM Max BP: 134/082 mmHG Max Work Load: 1.0 METS Reason for Termination: LEXISCAN PROTOCOL COMPLETED Resting ECG: SINUS BRADYCARDIA Functional Capacity: HR Response to Exercise: BP Resoonse to Exercise: Chest Pain: none Arrhythmias: none ST Changes: No Changes From Baseline Overall Impression: NO ISCHEMIC ECG CHANGES NOTED NUCLEAR IMAGES PENDING Diagnosis: Confirmed by GORDON ROLLINS MD ([id number]) on 04/24/2020 1:47:33 PM Attending Physician: Referred By: ? Overread By: GORDON ROLLINS MD [facility] STRESS 04/01/2020 10:0 9 AM PROTECTIVE SIGNAL REPAIRER 04/24/2020 1:47 PM PROTECTIVE SIGNAL REPAIRER Claudio Gutiérrez MD CARDIAC SERVICES ORD ERABLES Performing Organization Address [facility] de Phone Number [facility] STRESS * T4 FREE DIRECT REFLEXED (04/01/2020 3:52 AM PROTECTIVE SIGNAL REPAIRER) Only the most recent of2 resultswithin the time period is included. T4 Free 0.80 0.70 - 1.48 ng/dL 04/01/2020 5:47 AM PROTECTIVE SIGNAL REPAIRER [facility] Blood BLOOD SPECIMEN / Unknown Venipuncture / Unknown 04/01/2020 3:52 AM PROTECTIVE SIGNAL REPAIRER 04/01/2020 4:30 AM PROTECTIVE SIGNAL REPAIRER Claudio Gutiérrez MD LAB - CHEMISTRY KRISTY OCAMPO Performing Organization Address [facility] de Phone Number [facility] [address] [place], [place] [id number] * (ABNORMAL) TSH REFLEX FREE T4 (04/01/2020 3:52 AM PROTECTIVE SIGNAL REPAIRER) Only the most recent of2 resultswithin the time period is included. TSH 14.661(H) 0.350 - 4.940 uIU/mL 04/01/2020 5:16 AM PROTECTIVE SIGNAL REPAIRER [facility] Blood BLOOD SPECIMEN / Unknown Venipuncture / Unknown 04/01/2020 3:52 AM PROTECTIVE SIGNAL REPAIRER 04/01/2020 4:30 AM PROTECTIVE SIGNAL REPAIRER Claudio Gutiérrez MD LAB - CHEMISTRY KRISTY OCAMPO Performing Organization Address [facility] de Phone Number [facility] [address] [place] [address] * (ABNORMAL) CBC W AUTO DIFFERENTIAL (04/01/2020 3:52 AM PROTECTIVE SIGNAL REPAIRER) Only the most recent of4 resultswithin the time period is included. [facility] WBC 7.0 4.4 - 10.7 x10E9/L 04/01/2020 4:37 AM [facility] WBC Corrected 04/01/2020 4:37 AM [facility] RBC 5.40(H) 3.80 - 5.20 x10E12/L 04/01/2020 4:37 AM [facility] Hemoglobin 13.3 12.0 - 15.6 gm/dL 04/01/2020 4:37 AM [facility] Hematocrit 43.6 35.9 - 45.5 % 04/01/2020 4:37 AM [facility] MCV 80.7 80.7 - 98.3 fl 04/01/2020 4:37 AM [facility] MCH 24.6(L) 26.7 - 34.0 pg 04/01/2020 4:37 AM [facility] MCHC 30.5(L) 30.8 - 35.9 gm/dL 04/01/2020 4:37 AM [facility] Platelet Count 246 153 - 416 x10E9/L 04/01/2020 4:37 AM [facility] RDW-CV 15.0(H) 12.1 - 14.9 % 04/01/2020 4:37 AM [facility] MPV 10.4 9.4 - 12.9 fl 04/01/2020 4:37 AM [facility] Neutrophils % 54.4 44.0 - 73.0 % 04/01/2020 4:37 AM [facility] Lymphocytes % 32.9 20.0 - 43.0 % 04/01/2020 4:37 AM [facility] Monocytes % 8.4 5.0 - 13.0 % 04/01/2020 4:37 AM [facility] Eosinophils % 3.3 0.0 - 6.0 % 04/01/2020 4:37 AM [facility] Basophils % 0.9 0.0 - 2.0 % 04/01/2020 4:37 AM [facility] Immature Granulocytes 0.1 0 - 1 % 04/01/2020 4:37 AM [facility] Neutrophil Absolute 3.80 2.01 - 7.14 x10E9/L 04/01/2020 4:37 AM [facility] Lymphocytes Absolute 2.30 1.07 - 3.94 x10E9/L 04/01/2020 4:37 AM [facility] Monocytes Absolute 0.59 0.26 - 1.07 x10E9/L 04/01/2020 4:37 AM [facility] Eosinophils Absolute 0.23 0 - 0.47 x10E9/L 04/01/2020 4:37 AM [facility] Basophils Absolute 0.06 0 - 0.08 x10E9/L 04/01/2020 4:37 AM [facility] Immature Granulocytes Absolute 0.01 0.00 - 0.06 x10E9/L 04/01/2020 4:37 AM [facility] nRBC Auto 0 /100 WBC 04/01/2020 4:37 AM [facility] Blood BLOOD SPECIMEN / Unknown Venipuncture / Unknown 04/01/2020 3:52 AM PROTECTIVE SIGNAL REPAIRER 04/01/2020 4:30 AM [facility] Ruchi Godinez RECOVERY UNIT OPERATOR-HAIR BOILER OPERATOR LAB - HEMATOLOGY ORDERABLES [facility] [address] [place] [address] * (ABNORMAL) BASIC METABOLIC PANEL (CALCIUM TOTAL) (04/01/2020 3:52 AM [facility]) Glucose 85 70 - 105 mg/dL 04/01/2020 5:06 AM [facility] Sodium 142 136 - 145 mmol/L 04/01/2020 5:06 AM [facility] Potassium 3.5 3.5 - 5.1 mmol/L 04/01/2020 5:06 AM [facility] Chloride 110(H) 98 - 107 mmol/L 04/01/2020 5:06 AM [facility] CO2 27 23 - 31 mmol/L 04/01/2020 5:06 AM [facility] Calcium 9.5 8.4 - 10.4 mg/dL 04/01/2020 5:06 AM [facility] Anion Gap 5(L) 8 - 18 mmol/L 04/01/2020 5:06 AM [facility] Comment:Attention clinician: Reference Range change. BUN 15 9.8 - 20.1 mg/dL 04/01/2020 5:06 AM [facility] Creatinine 0.92 0.57 - 1.11 mg/dL 04/01/2020 5:06 AM [facility] eGFR by MDRD >60 >60 mL/min/1.7 3m2 04/01/2020 5:06 AM [facility] eGFR by MDRD >60 >60 mL/min/1.7 3m2 04/01/2020 5:06 AM [facility] Blood BLOOD SPECIMEN / Unknown Venipuncture / Unknown 04/01/2020 3:52 AM PROTECTIVE SIGNAL REPAIRER 04/01/2020 4:30 AM PROTECTIVE SIGNAL REPAIRER Ruchi FLORES LAB - CHEMISTRY O RDERAVICTORINO Performing Organization Address City/[facility]/ZIP Co de Phone Number [facility] [address] [place] [id number] * (ABNORMAL) LIPID PROFILE (04/01/2020 3:52 AM PROTECTIVE SIGNAL REPAIRER) Cholesterol 224(H) <200 mg/dL 04/01/2020 5:06 AM [facility] Triglycerides 85 <150 mg/dL 04/01/2020 5:06 AM [facility] HDL Cholesterol 70 >40 mg/dL 5:06 AM [facility] LDL Calculated 137(H) <130 mg/dL 04/01/2020 5:06 AM [facility] VLDL Calculated 17 <=30 mg/dL 5:06 AM [facility] Chol HDL Ratio 3.2 <4.5 04/01/2020 5:06 AM [facility] LDL/HDL Ratio 2.0 <5.0 04/01/2020 5:06 AM [facility] Blood BLOOD SPECIMEN / Unknown Venipuncture / Unknown 04/01/2020 3:52 AM PROTECTIVE SIGNAL REPAIRER 04/01/2020 4:30 AM PROTECTIVE SIGNAL REPAIRER Claudio Gutiérrez MD LAB - CHEMISTRY KRISTY OCAMPO [facility] [address] [place] [address] * (ABNORMAL) POTASSIUM BLOOD (03/31/2020 9:56 PM PROTECTIVE SIGNAL REPAIRER) Only the most recent of2 resultswithin the time period is included. [facility] Potassium 3.2(L) 3.5 - 5.1 mmol/L 03/31/2020 10:15 PM PROTECTIVE SIGNAL REPAIRER [facility] Blood BLOOD SPECIMEN / Unknown Venipuncture / Unknown 03/31/2020 9:56 PM PROTECTIVE SIGNAL REPAIRER 03/31/2020 10:02 PM PROTECTIVE SIGNAL REPAIRER Sarah Chanel MD LAB - CHEMISTRY KRISTY OCAMPO Performing Organization Address City/[facility]/ZIP Co de Phone Number [facility] [address] [place] [address] [phone] * TROPONIN I (03/31/2020 1:54 PM PROTECTIVE SIGNAL REPAIRER) Only the most recent of3 resultswithin the time period is included. [facility] Troponin I <0.010 <0.038 ng/mL 03/31/2020 2:27 PM PROTECTIVE SIGNAL REPAIRER [facility] Blood BLOOD SPECIMEN / Unknown Venipuncture / Unknown 03/31/2020 1:54 PM PROTECTIVE SIGNAL REPAIRER 03/31/2020 1:58 PM PROTECTIVE SIGNAL REPAIRER Ruchi Godinze APRN-JEREMIAH LAB - CHEMISTRY O RDERABLES Performing Organization Address [facility]/ZIP Co de Phone Number [facility] [address] [place] [address] [phone] * SARS-COV-2 (COVID-19) IN HOUSE (03/31/2020 1:45 PM PROTECTIVE SIGNAL REPAIRER) [facility] COVID-19 PCR Not detected Not detected 03/31/2020 7:36 PM PROTECTIVE SIGNAL REPAIRER [facility] Microbiology SPECIMEN FROM NASOPHARYNGEAL STRUCTURE / Unknown Collection / Unknown 03/31/2020 1:45 PM PROTECTIVE SIGNAL REPAIRER 03/31/2020 1:54 PM PROTECTIVE SIGNAL REPAIRER Narrative [facility] - 03/31/2020 7:36 PM PROTECTIVE SIGNAL REPAIRER This nucleic acid amplification assay performance was validated by [facility]. This test has been authorized by the Food and Drug administration (FDA)under an Emergency??Use Authorization (EUA). This test has been validated in accordance with the FDA's guidance document Policy for Diagnostic Testing in Laboratories Certified to perform High Complexity Testing under CLIA prior to Emergency Use Authorization for Coronavirus Disease-2019 during the Public Health Emergency issued on April 15, 2019. FDA independent review of this validation is pending. This test is only authorized for the duration of time the declaration that circumstances exist justifying the authorization of emergency use of in vitro diagnostic tests for detection of SARS-CoV-2 virus and/or diagnosis of COVID-19 infection under section 564(b)(1) of the Act, 21 U.S.C 360bbb-3 (b)(1), unless the authorization is terminated or revoked sooner. Fact Sheets for this EUA assay are available upon request. Ruchi Godinez RECOVERY UNIT OPERATOR-HAIR BOILER OPERATOR LAB - MICROBIOLOG Y ORDERABLES [facility] [address] [place] [address], [facility] [phone] * CT HEAD NON CONTRAST - intracranial hemorrhage (03/31/2020 1:20 PM PROTECTIVE SIGNAL REPAIRER) Anatomical Region Laterality Modality Head Computed Tomogra phy 03/31/2020 1:53 PM PROTECTIVE SIGNAL REPAIRER Impressions 03/31/2020 1:55 PM PROTECTIVE SIGNAL REPAIRER No acute intracranial process. *Reading Radiologist: Campbell Hall on 03/31/2020 at 1:55 PM Narrative 03/31/2020 1:55 [address] SIGNAL REPAIRER CT Brain Without Contrast Indication: Dizziness vomiting nausea and diarrhea Comparison: None available Technique: Axial images of the brain were obtained without contrast and reconstructions performed. Findings: No acute infarct or hemorrhage. No edema or midline shift. Normal ventricular size. No extra-axial fluid collections. No skull fracture. The paranasal sinuses and mastoid air cells are clear. Procedure Note Campbell Hall MD - 03/31/2020 CT Brain Without Contrast Indication: Dizziness vomiting nausea and diarrhea Comparison: None available Technique: Axial images of the brain were obtained without contrast and reconstructions performed. Findings: No acute infarct or hemorrhage. No edema or midline shift. Normal ventricular size. No extra-axial fluid collections. No skull fracture. The paranasal sinuses and mastoid air cells are clear. IMPRESSION No acute intracranial process. *Reading Radiologist: Campbell Hall on 03/31/2020 at 1:55 PM Ruchi Godinez RECOVERY UNIT OPERATOR-HAIR BOILER OPERATOR CT ORDERABLES * EKG 12-LEAD (03/31/2020 12:49 PM PROTECTIVE SIGNAL REPAIRER) Only the most recent of4 resultswithin the time period is included. Ventricular Rate 45 BPM [facility] Atrial Rate 45 BPM [facility] P-R Interval 100 ms [facility] QRS Duration ms 78 ms [facility] Q-T Interval ms 482 ms [facility] QTC Calculation (Bezet) 416 ms [facility] Calculated P [place] 33 degrees [facility] Calculated R [place] 37 degrees [facility] Calculated T [place] 37 degrees [facility] Interpretation EKG Sinus bradycardia with short RI Junctional ST depression, probably normal Borderline ECG Confirmed by AYO LINN, GORDON ([id number]) on 04/02/2020 4:51:24 PM [facility] 03/31/2020 12:4 9 PM PROTECTIVE SIGNAL REPAIRER 04/02/2020 4:51 PM PROTECTIVE SIGNAL REPAIRER Dennis Hargrove MD ECG ORDERABLES Performing Organization Address City/[facility]/ZIP Co de Phone Number [facility] * HIV-1 HIV-2 ANTIBODY + HIV P24 AG PANEL (03/31/2020 12:48 PM PROTECTIVE SIGNAL REPAIRER) Pathologist [facility] HIV1/2 Ab + P24 Ag Non Reactive Non Reactive 03/31/2020 1:39 PM PROTECTIVE SIGNAL REPAIRER [facility] Blood BLOOD SPECIMEN / Unknown Venipuncture / Unknown 03/31/2020 12:48 PM PROTECTIVE SIGNAL REPAIRER 03/31/2020 1:00 PM PROTECTIVE SIGNAL REPAIRER Narrative [facility] - 03/31/2020 1:39 PM PROTECTIVE SIGNAL REPAIRER No Laboratory evidence of HIV infection. Dennis Hargrove MD LAB - CHEMISTRY KRISTY OCAMPO [facility] [address] [place] [phone] * PROLACTIN (03/31/2020 12:48 PM PROTECTIVE SIGNAL REPAIRER) Pathologist [facility] Prolactin 7.37 5.18 - 26.53 ng/mL 03/31/2020 2:03 PM PROTECTIVE SIGNAL REPAIRER [facility] Blood BLOOD SPECIMEN / Unknown Venipuncture / Unknown 03/31/2020 12:48 PM PROTECTIVE SIGNAL REPAIRER 03/31/2020 1:01 PM PROTECTIVE SIGNAL REPAIRER Dennis Hargrove MD LAB - CHEMISTRY KRISTY OCAMPO Performing Organization Address [facility] Co de Phone Number [facility] [address] [place] [phone] * LACTIC ACID BLOOD (03/31/2020 12:48 PM PROTECTIVE SIGNAL REPAIRER) [facility] Lactic Acid 0.89 0.5 - 2.2 mmol/L 03/31/2020 1:17 PM PROTECTIVE SIGNAL REPAIRER [facility] Blood BLOOD SPECIMEN / Unknown Venipuncture / Unknown 03/31/2020 12:48 PM PROTECTIVE SIGNAL REPAIRER 03/31/2020 1:00 PM PROTECTIVE SIGNAL REPAIRER Dennis Hargrove MD LAB - CHEMISTRY KRISTY OCAMPO Performing Organization Address [facility] Co de Phone Number [facility] [address] [place] [phone] * GLUCOSE - POINT OF CARE (03/31/2020 12:38 PM PROTECTIVE SIGNAL REPAIRER) [facility] Glucose WB/POC 87 70 - 106 mg/dL 03/31/2020 12:53 PM PROTECTIVE SIGNAL REPAIRER [facility] Specimen Type Arterial/C apillary 03/31/2020 12:53 PM PROTECTIVE SIGNAL REPAIRER [facility] Blood BLOOD SPECIMEN / Unknown 03/31/2020 12:38 PM PROTECTIVE SIGNAL REPAIRER 03/31/2020 12:53 PM PROTECTIVE SIGNAL REPAIRER Provider Unknown LAB - POINT OF CARE ORDERABLES Performing Organization Address [facility] Co de Phone Number [facility] [address] [place] [phone] * XR CHEST 1VW PORTABLE (03/31/2020 11:21 AM PROTECTIVE SIGNAL REPAIRER) Only the most recent of2 resultswithin the time period is included. Anatomical Region Laterality Modality Chest Radiographic Edelmira ging 03/31/2020 11:4 3 AM PROTECTIVE SIGNAL REPAIRER Impressions 03/31/2020 11:43 AM PROTECTIVE SIGNAL REPAIRER Negative *Reading Radiologist: Campbell Hall on 03/31/2020 at 11:43 AM Narrative 03/31/2020 11:43 AM PROTECTIVE SIGNAL REPAIRER Portable Chest AP History: Dizziness FINDINGS: Prior from July 09, 2011. The heart size is normal and the lungs are clear and no pneumothorax or pleural effusion is seen. Procedure Note Campbell Hall MD - 03/31/2020 Portable Chest AP History: Dizziness FINDINGS: Prior from July 09, 2011. The heart size is normal and the lungs are clear and no pneumothorax or pleural effusion is seen. IMPRESSION Negative *Reading Radiologist: Campbell Hall on 03/31/2020 at 11:43 AM Ruchi Godinez RECOVERY UNIT OPERATOR-HAIR BOILER OPERATOR DIAGNOSTIC IMAGIN G ORDERABLES * (ABNORMAL) COMPREHENSIVE METABOLIC PANEL (03/31/2020 10:58 AM PROTECTIVE SIGNAL REPAIRER) Only the most recent of3 resultswithin the time period is included. Glucose 100 70 - 105 mg/dL 03/31/2020 11:26 AM PROTECTIVE SIGNAL REPAIRER [facility] Sodium 142 136 - 145 mmol/L 03/31/2020 11:26 AM [facility] Potassium 2.8(L) 3.5 - 5.1 mmol/L 03/31/2020 11:26 AM [facility] Chloride 108(H) 98 - 107 mmol/L 03/31/2020 11:26 AM [facility] CO2 24 23 - 31 mmol/L 03/31/2020 11:26 AM [facility] Calcium 9.7 8.4 - 10.4 mg/dL 03/31/2020 11:26 AM [facility] Anion Gap 10 8 - 18 mmol/L 03/31/2020 11:26 AM [facility] Comment:Attention clinician: ??Reference Range change. BUN 19 9.8 - 20.1 mg/dL 03/31/2020 11:26 AM [facility] Creatinine 1.11 0.57 - 1.11 mg/dL 03/31/2020 11:26 AM [facility] Alkaline Phosphatase 91 40 - 150 U/L 03/31/2020 11:26 AM [facility] Comment:Attention clinician: ??Reference Range change. ALT 13 0 - 61 U/L 03/31/2020 11:26 AM [facility] AST 13 5 - 34 U/L 03/31/2020 11:26 AM [facility] Protein Total 7.5 6.4 - 8.3 gm/dL 03/31/2020 11:26 AM [facility] Albumin 4.2 3.5 - 5.2 gm/dL 03/31/2020 11:26 AM [facility] Bilirubin Total 0.3 0.2 - 1.2 mg/dL 03/31/2020 11:26 AM [facility] Comment:Attention clinician: ??Reference Range change. eGFR by MDRD 51(L) >60 mL/min/1.7 3m2 03/31/2020 11:26 AM [facility] eGFR by MDRD >60 >60 mL/min/1.7 3m2 03/31/2020 11:26 AM [facility] Blood BLOOD SPECIMEN / Unknown Venipuncture / Unknown 03/31/2020 10:58 AM PROTECTIVE SIGNAL REPAIRER 03/31/2020 11:06 AM PROTECTIVE SIGNAL REPAIRER Ruchi Godinez RECOVERY UNIT OPERATOR-HAIR BOILER OPERATOR LAB - CHEMISTRY O RDERABLES [facility] [address] [place] [address] * MAGNESIUM BLOOD (03/31/2020 10:58 AM [facility]) Only the most recent of2 resultswithin the time period is included. Magnesium 2.2 1.6 - 2.6 mg/dL 03/31/2020 1:13 PM [facility] Blood BLOOD SPECIMEN / Unknown Venipuncture / Unknown 03/31/2020 10:58 AM PROTECTIVE SIGNAL REPAIRER 03/31/2020 11:06 AM PROTECTIVE SIGNAL REPAIRER Ruchi Godinez APRN-HAIR BOILER OPERATOR LAB - CHEMISTRY O AIMEE Performing Organization Address [facility] de Phone Number [facility] [id number] [place] [address] [phone] * CK BLOOD (03/31/2020 10:58 AM PROTECTIVE SIGNAL REPAIRER) CK 141 29 - 168 U/L 03/31/2020 1:00 PM PROTECTIVE SIGNAL REPAIRER [facility] Blood BLOOD SPECIMEN / Unknown Venipuncture / Unknown 03/31/2020 10:58 AM PROTECTIVE SIGNAL REPAIRER 03/31/2020 11:06 AM PROTECTIVE SIGNAL REPAIRER Dennis Hargrove MD LAB - CHEMISTRY KRISTY OCAMPO Performing Organization Address [facility] de Phone Number [facility] [id number] [place] [phone] * HCG BLOOD QUALITATIVE (03/31/2020 10:58 AM PROTECTIVE SIGNAL REPAIRER) HCG Qual Serum Negative Negative 03/31/2020 11:19 AM PROTECTIVE SIGNAL REPAIRER [facility] Blood BLOOD SPECIMEN / Unknown Venipuncture / Unknown 03/31/2020 10:58 AM PROTECTIVE SIGNAL REPAIRER 03/31/2020 11:06 AM PROTECTIVE SIGNAL REPAIRER Ruchi Godinez APRN-HAIR BOILER OPERATOR LAB - CHEMISTRY O AIMEE Performing Organization Address [facility] de Phone Number [facility] [id number] [place] [phone] * PATHOLOGY TISSUE (01/09/2019 9:45 AM PROTECTIVE SIGNAL REPAIRER) Case Report Surgical Pathology Report ? Case: [id number] ? Authorizing Provider: ??Magdalene Carmona MD ? Collected: ? 01/09/2019 09:45 AM ? Ordering Location: ? [facility] ?Received: ?01/09/2019 10:08 AM ? Pathologist: ? Shereen Huddleston MD ? Specimen: ?Gastric, random bx's for history of H-pyloria ? 01/10/2019 1:12 PM [facility] Final Diagnosis Stomach, random, biopsy (A): - Chronic active gastritis with H. pylori organisms 01/10/2019 1:12 PM [facility] Microscopic Description and Comment Microscopic examination substantiates the final diagnosis. 01/10/2019 1:12 PM [facility] Clinical History The patient is a 53-year-old woman with history of H. pylori and renal cell carcinoma. Operative procedure/findings: EGD- normal stomach, biopsy. 01/10/2019 1:12 PM [facility] Gross Description The requisition and specimen(s) are labeled with the patient's name, Dejah Obrien. Received in formalin, specimen A, random bx's for hist+ , are multiple soft yellow-clancy tissue fragments measuring 0.1-0.2 cm in greatest dimension, with an aggregate measurement of 1.0 x 0.5 x 0.1 cm. Submitted in toto in cassette A1. (KK) 01/10/2019 1:12 PM [facility] Disclaimer The performance characteristics of all immunohistochemical and indirect immunofluorescence stains (if any) cited in this report were determined by the Histopathology Laboratory of [facility]. Some of these tests were developed by our own laboratory and have not been cleared or approved by the US Food and Drug Administration. The FDA does not require this test to go through premarket FDA review. These tests are used for clinical purposes. They should not be regarded as investigational or for research. This laboratory is certified under the Clinical Laboratory Improvement Amendments (CLIA) as qualified to perform high complexity clinical laboratory testing. This case has been personally reviewed and interpreted by the attending (teaching) pathologist. 01/10/2019 1:12 PM [facility] Embedded Images 01/10/2019 1:12 PM [facility] Biopsy, NOS GASTRIC CONTENTS SPECIMEN / Unknown 01/09/2019 9:45 AM PROTECTIVE SIGNAL REPAIRER 01/09/2019 10:08 AM PROTECTIVE SIGNAL REPAIRER Comment:Pre-op diagnosis: R10.13 Dyspepsia Magdalene Carmona MD LAB - PATHOLOGY/CYTO LOGY ORDERABLES Performing Organization Address City/State/[facility] Co de Phone Number [facility] [address] [place] [address], [facility] [phone] * EGD (01/09/2019 9:07 AM PROTECTIVE SIGNAL REPAIRER) Report Endoscopy POC Endoscopy Department Report __ _ Patient Name: Dejah Obrien ?Procedure Date: 01/09/2019 9:07 AM ? Date of : 1965 Classification: Outpatient ?Gender: Female Ethnicity: Not or ? Race: Black or __ _ Providers: ?Magdalene Carmona MD, Toro Chavira (Fellow) Referring MD: ? Marion Cuellar (Referring MD) Procedure: ?Upper GI endoscopy Indications: ?Upper abdominal symptoms that persist despite an ?appropriate trial of therapy Medications: ?Monitored Anesthesia Care Comorbidities ? Hx of teratoma, hx of RCC Description of Procedure: Pre-Anesthesia Assessment: ?- Prior to the procedure, a History and Physical ?was performed, and patient medications and ?allergies were reviewed. The patient is competent. ?The risks and benefits of the procedure and the ?sedation options and risks were discussed with the ?patient. All questions were answered and informed ?consent was obtained. Patient identification and ?proposed procedure were verified by the physician ?and the nurse in the endoscopy suite. Mental Status ?Examination: alert and oriented. Airway ?Examination: Mallampati Class III (part of the ?uvula and soft palate visualized). Respiratory ?Examination: clear to auscultation. CV Examination: ?normal. Prophylactic Antibiotics: The patient does ?not require prophylactic antibiotics. Prior ?Anticoagulants: The patient has taken no previous ?anticoagulant or antiplatelet agents. ASA Grade ?Assessment: II - A patient with mild systemic ?disease. After reviewing the risks and benefits, ?the patient was deemed in satisfactory condition to ?undergo the procedure. The anesthesia plan was to ?use monitored anesthesia care (MAC). Immediately ?prior to administration of medications, the patient ?was re-assessed for adequacy to receive sedatives. ?The heart rate, respiratory rate, oxygen ?saturations, blood pressure, adequacy of pulmonary ?ventilation, and response to care were monitored ?throughout the procedure. The physical status of ?the patient was re-assessed after the procedure. ?After obtaining informed consent, the endoscope was ?passed under direct vision. Throughout the ?procedure, the patient's blood pressure, pulse, and ?oxygen saturations were monitored continuously. The ?Endoscope was introduced through the mouth, and ?advanced to the second part of duodenum. The upper ?GI endoscopy was accomplished without difficulty. ?The patient tolerated the procedure well. ? Findings: ? Esophagogastric landmarks were identified: the Z-line was found at 43 ? cm, the gastroesophageal junction was found at 43 cm and the site of ? hiatal narrowing was found at 43 cm from the incisors. ? The examined esophagus was normal. ? The entire examined stomach was normal. ? Random gastric biopsies were taken with a cold forceps in the stomach ? for Helicobacter pylori testing. Estimated blood loss was minimal. ? The cardia and gastric fundus were normal on retroflexion. ? The first portion of the duodenum and second portion of the duodenum ? were normal. ? Estimated Blood Loss: ? Estimated blood loss was minimal. Complications: ?No immediate complications. Estimated blood loss: ?Minimal. Impression: ? - Esophagogastric landmarks identified. ?- Normal esophagus. ?- Normal stomach. ?- Normal first portion of the duodenum and second ?portion of the duodenum. ?- Biopsies were taken with a cold forceps for ?Helicobacter pylori testing. Recommendation: ? - Patient has a contact number available for ?emergencies. The signs and symptoms of potential ?delayed complications were discussed with the ?patient. Return to normal activities tomorrow. ?Written discharge instructions were provided to the ?patient. ?- Resume previous diet. ?- Continue present medications. ?- Await pathology results. Treat H. pylori if ?positive. ?- Could consider esophogram and/or esophageal ?manometry in the future to evaluate patient's ?dysphagia. ?- Return to GI clinic as previously scheduled. ? Attending Participation: ??I was present and participated during the entire ?procedure, including non-singh portions. ? Procedure Code(s): ? --- Professional --- ? 08788, Esophagogastroduode noscopy, flexible, transoral; with biopsy, ? single or multiple Diagnosis Code(s): ?--- Professional --- ?R19.8, Other specified symptoms and signs involving ?the digestive system and abdomen CPT copyright 2016 [employer]. All rights reserved. The codes documented in this report are preliminary and upon certified coder review may be revised to meet current compliance requirements. Magdalene Carmona MD 01/09/2019 10:03:03 AM This report has been signed electronically. Note Initiated On: 01/09/2019 9:07 AM Number of Addenda: 0 ? [facility] ? [address] [place] [address] [facility] 01/09/2019 9:07 AM PROTECTIVE SIGNAL REPAIRER Toro Chavira MD GI PROCEDURE ORDERAB L[facility] * CT ABDOMEN PELVIS WO CONTRAST (06/21/2018 8:45 AM CDT) Anatomical Region Laterality Modality Abdomen, Pelvis Computed Tomogra phy 06/21/2018 9:02 AM CDT Impressions 06/21/2018 9:22 PM CDT IMPRESSION: 1. No acute process identified in the abdomen or pelvis. 2. 2.2 x 2.1 x 2 cm indeterminate left adrenal nodule. Given the absence of any prior imaging at this institution, further evaluation with a nonemergent adrenal protocol CT or MRI is recommended. Dictated by Chilango Malagon MD (vice president corporate communications). I, Dr. KB JOHNSON have personally reviewed and interpreted this examination/study. This report was electronically signed by KB JOHNSON ??on 06/21/2018 9:22 PM . Narrative 06/21/2018 9:22 PM CDT EXAMINATION: Computed tomography (CT) of the abdomen and pelvis without contrast HISTORY: 52-year-old with right abdominal pain. History notable for hernia repair in 1994. TECHNIQUE: CT of the abdomen and pelvis was performed without contrast according to standard protocol. COMPARISON: No prior study is available for comparison at the time of this dictation. FINDINGS: Evaluation of visceral and vascular structures is limited due to lack of intravenous contrast administration. No aneurysmal dilatation of the abdominal aorta. Atelectasis/scarring of the lung bases. The heart size is normal without pericardial effusion. Multiple low density liver lesions most likely represent cysts. The gallbladder is surgically absent. Normal spleen. No abnormal stranding surrounding the pancreas. 2.2 x 2.1 x 2 cm soft tissue density left adrenal nodule is indeterminate. No radiopaque renal or ureteral stones. No hydronephrosis. Nonspecific linear hyperintensities associated with the anterior aspect of the left kidney. Appropriate clinical correlation is recommended for prior surgery. No intestinal obstruction. Liquid stool in the colon. The appendix appears normal without appendicolith or surrounding inflammatory changes. No free air or free fluid is identified within the abdomen. There is no abdominal lymphadenopathy. Uterus and adnexa are surgically absent. No free fluid is seen within the pelvis. There is no pelvic lymphadenopathy. Bone windows demonstrate no suspicious lytic or blastic lesions. The visible osseous structures are intact. Fat-containing umbilical hernia. Procedure Note Kb Johnson MD - 06/21/2018 EXAMINATION: Computed tomography (CT) of the abdomen and pelvis without contrast HISTORY: 52-year-old with right abdominal pain. History notable forhernia repair in 1994. TECHNIQUE: CT of the abdomen and pelvis was performed without contrast according to standard protocol. COMPARISON: No prior study is available for comparison at the time ofthis dictation. FINDINGS: Evaluation of visceral and vascular structures is limited due to lack of intravenous contrast administration. No aneurysmal dilatation of the abdominal aorta. Atelectasis/scarring of the lung bases. The heart size is normal without pericardial effusion. Multiple low density liver lesions most likely represent cysts. The gallbladder is surgically absent. Normal spleen. No abnormal stranding surrounding the pancreas. 2.2 x 2.1 x 2 cm soft tissue density left adrenal nodule is indeterminate. No radiopaque renal or ureteral stones. No hydronephrosis. Nonspecific linear hyperintensities associated withthe anterior aspect of the left kidney. Appropriate clinical correlation is recommended for prior surgery. No intestinal obstruction. Liquid stool in the colon. The appendixappears normal without appendicolith or surrounding inflammatory changes. Nofree air or free fluid is identified within the abdomen. There is noabdominal lymphadenopathy. Uterus and adnexa are surgically absent. No free fluid is seen withinthe pelvis. There is no pelvic lymphadenopathy. Bone windows demonstrate no suspicious lytic or blastic lesions. The visible osseous structures are intact. Fat-containing umbilical hernia. IMPRESSION: 1. No acute process identified in the abdomen or pelvis. 2. 2.2 x 2.1 x 2 cm indeterminate left adrenal nodule. Given the absence of any prior imaging at this institution, further evaluation with a nonemergent adrenal protocol CT or MRI is recommended. Dictated by Chilango Malagon MD (vice president corporate communications). I, Dr. KB JOHNSON have personally reviewed and interpreted this examination/study. This report was electronically signed by KB JOHNSON on 06/21/20189:22 PM . Teri Coughlin RECOVERY UNIT OPERATOR-HAIR BOILER OPERATOR CT ORDERABLES * URINALYSIS AUTO - POINT OF CARE (AMB) [facility] (06/07/2018) Glucose UA - Bilirubin UA POCT - Ketones UA POCT - Specific [place] UA 1.020 Blood Urine POCT +- pH UA 7.0 Protein UA - Urobilinogen UA - Nitrite UA - WBC UA - Urine URINE / Unknown 06/07/2018 Teri M Ced RECOVERY UNIT OPERATOR-HAIR BOILER OPERATOR LAB - POINT O F CARE ORDERABLES * ENDOSCOPY, COLON, SCREENING (05/24/2017 1:00 PM CDT) Report Endoscopy POC _ Patient Name: Dejah Obrien ?Procedure Date: 05/24/2017 1:00 PM ? Date of : 1965 ?Admit Type: Outpatient Age: 51 ? Gender: Female Attending MD: Silas Potts MD ? _ Procedure: ? Colonoscopy Indications: ? Screening for colorectal malignant neoplasm Providers: ? Silas Potts MD (Doctor), Meghana Adams RN, Es ? Terrence, Scientologist Referring MD: ?Doc Faith MD (Referring MD) [...] Procedure Code(s): ? --- Professional --- ? 55654, Colonoscopy, flexible; with biopsy, single or multiple ? --- Technical --- ? 17622, Colonoscopy, flexible; with biopsy, single or multiple [...] abscess ? without bleeding CPT copyright 2015 [employer]. All rights reserved. The codes documented in this report are preliminary and upon certified coder review may be revised to meet current compliance requirements. Silas Potts MD 05/24/2017 1:28:42 PM This report has been signed electronically. Number of Addenda: 0 Note Initiated On: 05/24/2017 1:00 PM [facility] ENDOSCOPY 05/24/2017 1:00 PM CDT Silas Potts MD GI PROCEDURE ORDERAB LES [facility] ENDOSCOPY * US BREAST RIGHT LTD (03/04/2016 10:36 AM PROTECTIVE SIGNAL REPAIRER) Anatomical Region Laterality Modality Breast Right Ultrasound 03/04/2016 10:3 7 AM PROTECTIVE SIGNAL REPAIRER Narrative 03/04/2016 10:56 AM PROTECTIVE SIGNAL REPAIRER ULTRASOUND RIGHT BREAST LIMITED INDICATION: Burning pain of the right breast 6-9 o'clock. FINDINGS: Directed grayscale ultrasound performed and reveals no discrete abnormality. No solid or cystic lesion is seen. No mass is evident. ASSESSMENT: BI-RADS 2: ?? Benign finding. RECOMMENDATION: Screening interval follow-up. Edited by Magdalene Cervantes on 03/04/2016 10:41 AM Procedure Note Jessenia Brian MD - 03/04/2016 ULTRASOUND RIGHT BREAST LIMITED INDICATION: Burning pain of the right breast 6-9 o'clock. FINDINGS: Directed grayscale ultrasound performed and reveals no discrete abnormality. No solid or cystic lesion is seen. No mass is evident. ASSESSMENT: BI-RADS 2: Benign finding. RECOMMENDATION: Screening interval follow-up. Edited by Magdalene Cervantes on 03/04/2016 10:41 AM Doc Faith Jr., MD US ORDERABLES * MAMMO DIAG DIRECT DIGITAL IMAGE UNIL RIGHT G0206 (03/04/2016 10:21 AM PROTECTIVE SIGNAL REPAIRER) Only the most recent of2 resultswithin the time period is included. Anatomical Region Laterality Modality Right Mammography 03/04/2016 11:1 2 AM PROTECTIVE SIGNAL REPAIRER Narrative 03/04/2016 11:43 AM PROTECTIVE SIGNAL REPAIRER DIGITAL UNILATERAL DIAGNOSTIC MAMMOGRAMS WITH CAD AND 3-D TOMOSYNTHESIS DATE: 03/04/2016 9:00 AM PREVIOUS EXAM DATE: 01/07/2016 from [facility], prior films [facility] 06/09/2012, 05/11/2011. INDICATION: Right breast burning pain. TECHNIQUE: Unilateral right CC and MLO views. Images were interpreted with the aid of CAD. 3-D tomosynthesis images were performed. TECHNOLOGIST: Mervta Jacobo, ??RT(R)(M). TISSUE DENSITY: Scattered fibroglandular elements. FINDINGS: There is no discrete abnormality. There is no change. Directed ultrasound performed in the area of the patient's pain and revealed no discrete abnormality otherwise. ASSESSMENT: BI-RADS Category 2: Benign finding. RECOMMENDATIONS: Continued annual screening mammography. The above findings should be correlated with physical examination. A relatively nonspecific study should not preclude additional evaluation if suspicious findings are present clinically. An [employer] Facility. [facility] utilizes [employer] as a reminder system to notify patients of their next recommended mammograms. Edited by Carlene Chavarria on 03/04/2016 11:34 AM Doc Faith Jr., MD MAMMO ORDERABL ES * IMAGING/RADIOLOGY/XRAY RESULTS ORDER (02/26/2016 7:15 PM PROTECTIVE SIGNAL REPAIRER) Only the most recent of2 resultswithin the time period is included. Anatomical Region Laterality Modality Mammography Narrative 02/26/2016 7:15 PM PROTECTIVE SIGNAL REPAIRER Ordered by an unspecified provider. Scanned Document IMAGING * MAMMO SCREENING DIGITAL IMAGE BILAT G0202 (01/07/2016 10:52 AM PROTECTIVE SIGNAL REPAIRER) Anatomical Region Laterality Modality Breast Bilateral Mammography 01/22/2016 11:3 0 AM PROTECTIVE SIGNAL REPAIRER Addenda Addendum by Noemí Martin MD on 02/24/2016 5:22 PM PROTECTIVE SIGNAL REPAIRER Previous mammograms from [facility] on 02/05/2015, 06/09/2012, 05/11/2011, and 04/09/2010 are [...] in one year. Impressions 01/22/2016 12:13 PM PROTECTIVE SIGNAL REPAIRER Questioned mass in the upper outer right breast. No evidence of malignancy in the left breast. ASSESSMENT: BIRADS Category 0: Incomplete - Needs additional imaging evaluation. RECOMMENDATION: Right breast targeted ultrasound and possible mammography. Thank you for allowing us to participate in the care of your patient. [facility] [email or web address] utilizes [employer] as a reminder system to notify patients of their next recommended mammogram. Narrative 01/22/2016 12:13 PM PROTECTIVE SIGNAL REPAIRER EXAMINATION: Digital screening mammogram on 01/07/2016. Computer assisted detection was utilized. PRIOR: Attempt was made to retrieve prior images from [facility]; however, none were available. 04/09/2010 diagnostic right [...] was made to retrieve prior images from [facility]; however, none were available. 04/09/2010 diagnostic right [...] participate in the care of your patient. [facility] utilizes [employer] as a reminder system to notify patients of their next recommended mammogram. Doc Faith Jr., MD MAMMO ORDERABL ES * COMPLETE PFT (09/06/2014) Neo Alex MD RESPIRATORY THERAPY ORDERABLES [facility] RESULT SCAN * CARDIAC EKG ORDER (08/31/2011 11:38 AM CDT) Only the most recent of2 resultswithin the time period is included. Narrative Transcriptions Document, Scanned - 08/31/2011 11:38 AM CDT Scanned Document CARDIAC SERVICES ORD ERABLES * CARDIAC ECHOCARDIOGRAM COMPLETE ORDER (08/31/2011 11:38 AM CDT) Narrative Transcriptions Document, Scanned - 08/31/2011 11:38 AM CDT Scanned Document ECHO ORDERABLES * (ABNORMAL) MYOGLOBIN BLOOD (07/09/2011 11:50 AM CDT) Myoglobin 60(H) <50.0 ng/mL [facility] Blood specimen (specimen) BLOOD SPECIMEN / Unknown 07/09/2011 11:50 AM CDT 07/09/2011 11:50 AM CDT Jie Alicea DO LAB - CHEMISTRY ORDE RABLES Performing Organization Address [facility] de Phone Number [facility] [address] [place] [address] * PT PTT PANEL (07/09/2011 11:50 AM CDT) PT 10.0 9.4 - 11.2 seconds [facility] INR 1.0 SEE BELOW [facility] Comment: 0.9-1.1 Normal 2.0-3.0 Conventional 2.5-3.5 Intensive PTT 25.2 24.0 - 32.0 seconds [facility] Blood specimen (specimen) BLOOD SPECIMEN / Unknown 07/09/2011 11:50 AM CDT 07/09/2011 11:50 AM CDT Jie Alicea DO LAB - COAGULATION OR DERABLES Performing Organization Address [facility] de Phone Number [facility] [address] [place] [address] * CT ABDOMEIN W/WO THORAX PELVIS W CONTRAST (02/12/2010 3:55 PM PROTECTIVE SIGNAL REPAIRER) Anatomical Region Laterality Modality Computed Tomogra phy 02/12/2010 4:41 PM PROTECTIVE SIGNAL REPAIRER Impressions 02/12/2010 5:23 PM PROTECTIVE SIGNAL REPAIRER No pulmonary embolism or pneumonia. CT abdomen and pelvis: The gallbladder is surgically absent. There is no abnormal fluid collection in the kylie hepatis or around the liver. There are several small subcentimeter hepatic cysts. The spleen, pancreas, adrenals and kidneys are unremarkable. The colon and small bowel are normal in size and shape. There is a large right adnexal cyst measuring 5 x 4.9 cm. There is an additional smaller cyst within this first cyst measuring 2.3 cm. There is no adjacent free fluid. The uterus is difficult to identify and may have been resected or partial hysterectomy. The left ovary is not seen. IMPRESSION: 1. Large right adnexal cyst. 2. No acute inflammation or free fluid. Narrative 02/12/2010 5:23 [address] SIGNAL REPAIRER CT angiogram thorax with contrast CT abdomen and pelvis with and without contrast DATE: 02/12/2010. INDICATION: Several weeks postop cholecystectomy. Patient has shortness of breath, chest tightness, constipation and nausea. History of hernia repairs and left oophorectomy. TECHNIQUE: Multidetector enhanced CT angiography through the thorax and multidetector routine pre and post enhanced CT through the abdomen and post enhanced CT through pelvis. 100 cc of Omnipaque 350 intravenously and oral contrast. CT angiogram thorax: Overall study quality is good. There are no intraluminal filling defects to indicate pulmonary embolism. There is no atelectasis, infiltration or pleural effusion. Pulmonary architecture is normal. Overall, there has been no change since 06/25/2008. The thoracic aorta has a normal size and shape. There is no mediastinal or axillary adenopathy. Incidentally noted is a small subcentimeter cyst or nodule in the right thyroid. Procedure Note Kimberley Fuentes MD - 02/12/2010 CT angiogram thorax with contrast CT abdomen and pelvis with and without contrast DATE: 02/12/2010. INDICATION: Several weeks postop cholecystectomy. Patient has shortness of breath, chest tightness, constipation and nausea. History of hernia repairs and left oophorectomy. TECHNIQUE: Multidetector enhanced CT angiography through the thorax and multidetector routine pre and post enhanced CT through the abdomen and post enhanced CT through pelvis. 100 cc of Omnipaque 350 intravenously and oral contrast. CT angiogram thorax: Overall study quality is good. There are no intraluminal filling defects to indicate pulmonary embolism. There is no atelectasis, infiltration or pleural effusion. Pulmonary architecture is normal. Overall, there has been no change since 06/25/2008. The thoracic aorta has a normal size and shape. There is no mediastinal or axillary adenopathy. Incidentally noted is a small subcentimeter cyst or nodule in the right thyroid. IMPRESSION No pulmonary embolism or pneumonia. CT abdomen and pelvis: The gallbladder is surgically absent. There is no abnormal fluid collection in the kylie hepatis or around the liver. There are several small subcentimeter hepatic cysts. The spleen, pancreas, adrenals and kidneys are unremarkable. The colon and small bowel are normal in size and shape. There is a large right adnexal cyst measuring 5 x 4.9 cm. There is an additional smaller cyst within this first cyst measuring 2.3 cm. There is no adjacent free fluid. The uterus is difficult to identify and may have been resected or partial hysterectomy. The left ovary is not seen. IMPRESSION: 1. Large right adnexal cyst. 2. No acute inflammation or free fluid. Luz Live MD CT ORDERABLES * XR CHOLANGIOGRAM OPERATIVE (01/16/2010 9:55 AM PROTECTIVE SIGNAL REPAIRER) Anatomical Region Laterality Modality Abdomen Radio Fluoroscop y 01/16/2010 1:40 PM PROTECTIVE SIGNAL REPAIRER Narrative 01/16/2010 1:40 PM PROTECTIVE SIGNAL REPAIRER HISTORY: Cholecystitis. C-arm fluoroscopy 01/16/2010. FINDINGS: C-arm fluoroscopy was provided for intraoperative guidance. The exam is limited secondary to technical difficulties. 5 fluoroscopic images of the abdomen demonstrates catheterization and opacification of the biliary tree without extravasation of contrast. No gross filling defects are demonstrated. Contrast empties into the small bowel. Surgical clips are present consistent with a cholecystectomy. Would correlate with intraoperative notes for further details. Procedure Note Tip Buitrago MD - 01/16/2010 HISTORY: Cholecystitis. C-arm fluoroscopy 01/16/2010. FINDINGS: C-arm fluoroscopy was provided for intraoperative guidance. The exam is limited secondary to technical difficulties. 5 fluoroscopic images of the abdomen demonstrates catheterization and opacification of the biliary tree without extravasation of contrast. No gross filling defects are demonstrated. Contrast empties into the small bowel. Surgical clips are present consistent with a cholecystectomy. Would correlate with intraoperative notes for further details. Luz Live MD DIAGNOSTIC IMAGING O RDERABLES * GROSS + MICRO EXAM (01/16/2010 12:00 AM PROTECTIVE SIGNAL REPAIRER) Only the most recent of2 resultswithin the time period is included. Result CASE NUMBER [id number] Comment: ORDERING PHYSICIAN ??LUZ LIVE SPECIMEN TYPE ?Gallbladder Date ? 01/16/2010 Physician ?Walt Live Gross Description ? The specimen is received in Formalin labeled with the patient's name, Dejah Guzman, and gallbladder, gross and micro. ??It consists of one intact gallbladder measuring 8.8 x 2.2 x 1.6 cm. ??The serosal surface is smooth and glistening. ??The mucosal surface is green and velvety. ??The wall thickness is 0.3 cm. ??The lumen contains green bile. ??No stones identified. ??Milk Pasteurizer sections of the specimen, including the cystic duct margin, are submitted in a single cassette. [facility] Microscopic Exam ? Sections show a gallbladder with focal mild chronic inflammation. ??The histology is otherwise unremarkable. ??No dysplasia or malignancy is seen. MC/db Diagnosis ? I. ?Gallbladder, cholecystectomy -- ?Focal mild chronic inflammation MC/db Manager Commission ? db Pathologist ?Jeremy Tran MD [place]. ?01/17/2010 1137 <1> CPT code ? 06187 MISCELLANEOUS SAMPLE S / Unknown 01/16/2010 01/16/2010 11:38 AM PROTECTIVE SIGNAL REPAIRER Historical Provider LAB - PATHOLOGY/C YTOLOGY ORDERABLES Care Teams Sports Trainer Relationship Specialty Start Date End Date Marion Terry NP [address] [place] [address] PCP - General 09/12/21 Rene Agosto MD Automobile Sales Consultant Cardiology 12/04/14
--- OUTSIDE RECORDS SUMMARY | 2024-03-14 10:55 | XMS_ITS | Clinical Summary ---
Author Organization [facility] Address [address] [place] [address] Care Team Providers Care Patient Accounting Representative Name Role Phone Unavailable Primary Care Provider Unavailabl e Social History Tobacco Use Types Packs/Day Years Used Date Smoking Tobacco: Never Assessed Comments Unknown Sex and Gender Information Value Date Recorded Sex Assigned at Not on file Legal Sex Female 9:47 AM CDT Gender Identity Not on file Sexual Orientation Not on file Plan of Treatment Health Maintenance Due Date Last Done Comments DTAP/TDAP/TD VACCINES (1 - Tdap) 1985 HEPATITIS B VACCINES (1 of 3 - 19+ 3-dose series) 1985 CERVICAL CANCER SCREENING 1996 BREAST CANCER SCREENING 2006 COLORECTAL SCREENING 07/06/2011 Colorectal Cancer Screening 07/06/2011 FIT-DNA Q 3 years 07/06/2011 FIT/FOBT Q 1 year 07/06/2011 Flex Sig/CT Colonography Q 5 years 07/06/2011 ZOSTER VACCINE (1 of 2) 2016 INFLUENZA VACCINE (#1) 2023 PNEUMOCOCCAL VACCINE 0-64 YEARS Aged Out No longer eligible based on patient's age to complete this topic
--- OUTSIDE RECORDS SUMMARY | 2024-03-14 10:55 | XMS_ITS | CONTINUITY OF CARE DOCUMENT ---
Author Name tosinrosario, tosinrosario Address Unknown Organization [facility] Address [address] [place] [address] Phone [phone] Care Team Providers Care Trailer Mechanic Name Role Phone Brock LINN, Claudio Unavailable [phone] Brock LINN, Claudio Unavailable [phone] Navjot Chow Unavailable PROBLEMS Condition Status Date Provider Notes Cardiology examination active Caludio Marmolejo Palpitations active Claudio Gutiérrez MD Near syncope active Claudio Gutiérrez MD Bradycardia active Claudio Gutiérrez MD Hypertension active Claudio Gutiérrez MD Calf pain, left active Claudio Gutiérrez MD Tachy hattie syndrome active Claudio Gutiérrez MD Snoring active Claudio Gutiérrez MD GURU, moderate active Claudio Gutiérrez MD Obesity active Claudio Gutiérrez MD Family History of Hypertension: completed 9 - Claudio Gutiérrez MD ENCOUNTERS Date Type Provider Location Encounter Diag nosis - In-person encounter Office Visit Mckenna Hager NP [facility] - In-person encounter Office Visit Claudio Gutiérrez MD [facility] Family History of Hypertension:GURU, moderate - In-person encounter Office Visit [facility] - In-person encounter Office Visit [facility] - In-person encounter Office Visit Claudio Gutiérrez MD [facility] GURU, moderateObesity - In-person encounter Office Visit [facility] Snoring - In-person encounter Office Visit Claudio Gutiérrez MD [facility] Tachy hattie syndrome - In-person encounter Office Visit [facility] Calf pain, left - In-person encounter Office Visit Claudio Gutiérrez MD [facility] Cardiology examinationPalpitationsNear syncopeBradycardiaHypertension VITAL SIGNS Date Observation Value Provider Body Mass Index (Ratio) 36.97 kg/m2 Meghann Rogel blood pressure, diastolic 78 mm[Hg] Ky braulio Success blood pressure, systolic 124 mm[Hg] Kyl ia Success weight E&M 225.6 [lb_av] [facility] pulse rate 80 /min [facility] respiratory rate E&M 14 /min Adriananshul thompson oxygen saturation, oximetry 97 % [facility] blood pressure, cuff size regular Ky braulio Success height E&M 65.5 [in_i] [facility] Body Mass Index (Ratio) 36.87 kg/m2 Claudio Gutiérrez MD blood pressure, diastolic 98 mm[Hg] Li nkLogic blood pressure, systolic 148 mm[Hg] Kristie kLogic blood pressure, diastolic 98 mm[Hg] Ky braulio Des blood pressure, systolic 148 mm[Hg] Kyl ia Des oxygen saturation, oximetry 98 % Minoo Nunes pulse rate 74 /min Minoo Nunes weight E&M 225 [lb_av] Minoo Nunes blood pressure, cuff size regular Adrian Nunes respiratory rate E&M 12 /min Minoo thompson height E&M 65.5 [in_i] Minoo Des blood pressure, diastolic 100 mm[Hg] Li nkLogic blood pressure, systolic 154 mm[Hg] Kristie kLogic blood pressure, diastolic 100 mm[Hg] Ch astity Danyel blood pressure, systolic 154 mm[Hg] Karlee stity Danyel oxygen saturation, oximetry 96 % Chastity Danyel pulse rate 68 /min Chastity Danyel weight E&M 225 [lb_av] Chastity Danyel respiratory rate E&M 16 /min Chastit y Danyel height E&M 65.5 [in_i] Chastity Danyel Body Mass Index (Ratio) 37.69 kg/m2 Claudio Gutiérrez MD blood pressure, cuff size regular Tr minesh Darnell blood pressure, diastolic 90 mm[Hg] Tr minseh Darnell blood pressure, systolic 140 mm[Hg] Try kim Darnell oxygen saturation, oximetry 96 % Jazlyn Darnell respiratory rate E&M 16 /min Trynett Darnell pulse rate 59 /min Trykim Darnell weight E&M 230 [lb_av] [facility] height E&M 65.5 [in_i] [facility] D[facility] Body Mass Index (Ratio) 39.65 kg/m2 Claudio Gutiérrez MD blood pressure, cuff size regular Juan claudioabby Jordan blood pressure, diastolic 80 mm[Hg] Juan Quinonez blood pressure, systolic 130 mm[Hg] Jonathan Quinonez respiratory rate E&M 19 /min Dinorah Quinonez pulse rate 66 /min Dinorah Quinonez oxygen saturation, oximetry 95 % Dinorah Ortega weight E&M 242 [lb_av] Dinorah Ortega blood pressure, resting Yes Brandyn Quinonez height E&M 65.5 [in_i] Dinorah Ortega Body Mass Index (Ratio) 38.67 kg/m2 Claudio Gutiérrez MD blood pressure, diastolic 81 mm[Hg] Fe imani Alarcon blood pressure, systolic 143 mm[Hg] Fel icia Alarcon pulse rate 77 /min Phuong Alarcon oxygen saturation, oximetry 99 % Phuong Alarcon weight E&M 236 [lb_av] Phuong Alarcon respiratory rate E&M 16 /min Phuong Alarcon temperature E&M 97.2 [degF] Phuong Alarcon height E&M 65.5 [in_i] Phuong Alarcon Body Mass Index (Ratio) 37.20 kg/m2 Claudio Gutiérrez MD blood pressure, diastolic 90 mm[Hg] Mi camryn Kathy blood pressure, systolic 150 mm[Hg] [facility] heldanilo Shresthay blood pressure, resting Yes Nikita wayne [place] oxygen saturation, oximetry 97 % Mesha Kathy respiratory rate E&M 20 /min Petra ca [place] pulse rate 76 /min Mesha Kathy weight E&M 227 [lb_av] Mesha Shresthay height E&M 65.5 [in_i] Mesha [place] Body Mass Index (Ratio) 35.72 kg/m2 Claudio Gutiérrez MD oxygen saturation, oximetry 98 % [facility] pressure, diastolic 90 mm[Hg] Ch astity Danyel blood pressure, systolic 140 mm[Hg] Karlee stity Danyel pulse rate 72 /min [facility] respiratory rate E&M 16 /min [facility] weight E&M 218 [lb_av] [facility] 65.5 [in_i] [facility] Body Mass Index (Ratio) 34.57 kg/m2 Claudio Gutiérrez MD blood pressure, resting Yes [facility] tiki Block blood pressure, diastolic 68 mm[Hg] Br ittany Block blood pressure, systolic 106 mm[Hg] Margarita ttany Block pulse rate 84 /min Mony Block oxygen saturation, oximetry 98 % Mony Block height E&M 65.5 [in_i] Mony Block weight E&M 211 [lb_av] Mony Block respiratory rate E&M 16 /min Mallika Jacob ALLERGIES Allergy Name Onset Date Reaction Criticality Status PENICILLIN High Criticality active HISTORY OF MEDICATION USE Medication Status Instructions Dates Provider Indications Com ments hydralazine 25 mg tablet active Claudio Gutiérrez MD losartan 25 mg tablet active Take 1 tab let by mouth once a day Claudio Gutiérrez MD Lasix 40 mg tablet active 1 tablet by mouth once a day Claudio Gutiérrez MD hydrochlorothiazide 25 mg tablet active Take 1 tablet by mouth once a day Dinorah Ortega Hypertension #30, 30 days supply, Prescribed by MICHELLE OWUSU, Filled 2020 docusate sodium 100 mg capsule active Take 1 capsule by mouth twice a day Dinorah Ortega #60, 30 days supply, Prescribed by MICHELLE OWUSU, Filled 07/23/2020 nafiliwz-grjewykki-TN 3.5-10,000-1 mg/mL-unit/mL-% drops,suspension active Instill 4 drop into left ear three times a day Dinorah Ortega #10, 13 days supply, Prescribed by THOMAS WALTERS, Filled 07/25/2020 cetirizine 10 mg tablet active Take 1 tablet by mouth once a day Dinorah Ortega #30, 30 days supply, Prescribed by MICHELLE OWUSU, Filled 07/29/2020 ergocalciferol (vitamin D2) 1,250 mcg (50,000 unit) capsule active Take 1 capsule by mouth once a week Dinorah Ortega #4, 28 days supply, Prescribed by MICHELLE OWUSU, Filled 08/02/2020 Cardizem CD 180 mg capsule,extended release 24hr completed 1 capsule by mouth once a day - Claudio Gutiérrez MD pindolol 5 mg tablet active 1 tablet by mouth twice a day Claudio Gutiérrez MD AMLODIPINE BESYLATE 10 MG ORAL TABLET completed one tab once daily - Claudio Gutiérrez MD pantoprazole 40 mg tablet,delayed release (DR/EC) active 1 tablet by mouth twice a day Jazlyn Darnell Advair Diskus 100-50 mcg/dose blister with device active 1 puff twice a day Jazlyn Darnell FeroSul 325 mg (65 mg iron) tablet active 1 tablet by mouth once a day Jazlyn Darnell Klor-Con M20 20 mEq tablet,ER particles/crystals active 1 tablet by mouth once a day Jazlyn Darnell magnesium oxide 400 mg (241.3 mg magnesium) tablet active 1 tablet by mouth once a day Jazlyn Darnell levothyroxine 125 mcg tablet active 1 tablet by mouth once a day Mesha Chavez hydrochlorothiazide 12.5 mg capsule completed 1 tablet by mouth once a day as needed - Claudio Gutiérrez MD Adult Aspirin Regimen 81 mg tablet,delayed release (DR/EC) active 1 tablet by mouth once a day Jazlyn Darnell SOCIAL HISTORY Date Observation Value Provider alcohol use no Mckennakatey Estrellaluri NURSE PRN smoking status Never smoker Mckenna Estrellalu ri NURSE PRN alcohol use no Claudio Gutiérrez MD smoking status Never smoker Claudio Marmolejo alcohol use no Claudio Gutiérrez MD smoking status Never smoker Claudio Marmoeljo social history reviewed E&M revi ewed - no changes required Claudio Gutiérrez MD social history E&M S moking History: James figueredo has never smoked. Claudio Gutiérrez MD social history E&M S moking History: James figueredo has never smoked. Claudio Gutiérrez MD smoking status Never smoker Jazlyn shell social history reviewed E&M revi ewed - no changes required Claudio Gutiérrez MD smoking status Never smoker Dinorahcon Quinonezby social history reviewed E&M revi ewed - no changes required Claudio Gutiérrez MD smoking status Never smoker Phuong Alarcon social history reviewed E&M revi ewed - no changes required Claudio Gutiérrez MD smoking status Never smoker Mesha ford social history reviewed E&M revi ewed - no changes required Claudio Gutiérrez MD smoking status Never smoker Lisa ca social history reviewed E&M revi ewed - no changes required Claudio Gutiérrez MD alcohol use no Mony Jacob smoking status Never smoker Mony Susanna rogers FAMILY HISTORY Family Member Condition Father Family History Unkno wn Mother Family History of Co ronary Artery Disease: Mother Family History of Hy pertension: INSURANCE PROVIDERS Payer name Policy type / Coverage type [place] [employer] libertarian [employer]EFITS [employer] insurance [employer] [id number] ADVANCE DIRECTIVES Name Date DISCUSSED - NO DECISION MADE TREATMENT PLAN Date Name Performer [id number],C,Requires titr ation of CPAP Claudio Gutiérrez MD [id number],C,l ess frequent H er updated medication list for this problem includes: Pindolol 5 Mg Tablet (Pindolol) ..... 1 tablet by mouth twice a day Adult Aspirin Regimen 81 Mg Tablet,delayed Release (dr/ec) (Aspirin) ..... 1 tablet by mouth once a day Claudio Gutiérrez MD [id number],C,A symptomatic O n pindolol H er updated medication list for this problem includes: Pindolol 5 Mg Tablet (Pindolol) ..... 1 tablet by mouth twice a day Adult Aspirin Regimen 81 Mg Tablet,delayed Release (dr/ec) (Aspirin) ..... 1 tablet by mouth once a day Claudio Gutiérrez MD [id number],C,I recommended exercise weight loss. Claudio Gutiérrez MD [id number],C,P t. has been prescribed Losartan 25mg once a day. BP today: 154/100 P rior BP: 140/90 (12/31/2020) Her updated medication list for this problem includes: Losartan 25 Mg Tablet (Losartan) ..... Take 1 tablet by mouth once a day Lasix 40 Mg Tablet (Furosemide) ..... 1 tablet by mouth once a day Hydrochlorothiazide 25 Mg Tablet (Hydrochlorothiazide) ..... Take 1 tablet by mouth once a day Hydrochlorothiazide 12.5 Mg Capsule (Hydrochlorothiazide) ..... 1 tablet by mouth once a day as needed Pindolol 5 Mg Tablet (Pindolol) ..... 1 tablet by mouth twice a day Adult Aspirin Regimen 81 Mg Tablet,delayed Release (dr/ec) (Aspirin) ..... 1 tablet by mouth once a day Claudio Gutiérrez MD [id number],C,P t is waiting for insurance to approve at home sleep study Claudio Gutiérrez MD [id number],C,P t. has been prescribed Losartan 25mg once a day. BP today: 154/100 P rior BP: 140/90 (12/31/2020) Claudio Gutiérrez MD [id number],C,I recommended the DASH diet for pt's weight gain. Claudio Gutiérrez MD [id number],C,R esolved T he following medications were removed from the medication list: Cardizem Cd 180 Mg Capsule,extended Release 24hr (Diltiazem hcl) ..... 1 capsule by mouth once a day Her updated medication list for this problem includes: Pindolol 5 Mg Tablet (Pindolol) ..... 1 tablet by mouth twice a day Adult Aspirin Regimen 81 Mg Tablet,delayed Release (dr/ec) (Aspirin) ..... 1 tablet by mouth once a day Claudio Gutiérrez MD [id number],C,w ell controlled T he following medications were removed from the medication list: Cardizem Cd 180 Mg Capsule,extended Release 24hr (Diltiazem hcl) ..... 1 capsule by mouth once a day Her updated medication list for this problem includes: Lasix 40 Mg Tablet (Furosemide) ..... 1 tablet by mouth once a day Hydrochlorothiazide 25 Mg Tablet (Hydrochlorothiazide) ..... Take 1 tablet by mouth once a day Hydrochlorothiazide 12.5 Mg Capsule (Hydrochlorothiazide) ..... 1 tablet by mouth once a day as needed Pindolol 5 Mg Tablet (Pindolol) ..... 1 tablet by mouth twice a day Adult Aspirin Regimen 81 Mg Tablet,delayed Release (dr/ec) (Aspirin) ..... 1 tablet by mouth once a day Claudio Gutiérrez MD [id number],S,H as tachy-hattie syndrome O n pindolol stop cardizem E vent monbitor results reviewed N o indication for pacemaker O rders: 9213 MOD 30-39min (CPT-27271) 9213 MOD 30-39min (CPT-80400) STOP Carbedizem Claudio Gutiérrez MD [id number],S, O rders: 9 9214 MOD 30-39min (CPT-87322) 9 9214 MOD 30-39min (CPT-98168) STOP Carbedizem Claudio Gutiérrez MD [id number],C,W ill start Lasix 40 daily c ontinue Potassium Claudio Gutiérrez MD [id number],S, B P today: 130/80 P rior BP: 143/81 (07/19/2020) Her updated medication list for this problem includes: Lasix 40 Mg Oral Tablet (Furosemide) ..... One tab by mouth daily Hydrochlorothiazide 25 Mg Oral Tablet (Hydrochlorothiazide) ..... Take 1 tablet by mouth every day Cardizem Cd 180 Mg Oral Capsule Extended Release 24 Hour (Diltiazem hcl coated beads) ..... One daily Pindolol 5 Mg Oral Tablet (Pindolol) ..... 1 tablet twice daily Hydrochlorothiazide 12.5 Mg Oral Capsule (Hydrochlorothiazide) ..... 1 tab daily prn Adult Aspirin Regimen 81 Mg Oral Tablet Delayed Release (Aspirin) ..... 1 tab daily Claudio Gutiérrez MD [id number],S, N ml venous doppler Claudio Gutiérrez MD [id number],S, S he had a recent 30 day telemonitor which showed episodes of SVT with rate in the 160s and sinus bradycardia in the 40s. H ad patient stop amlodipine, start Cardizem CD 180 mg/daily. Repeat monitor showed improvement. The following medications were removed from the medication list: Amlodipine Besylate 10 Mg Oral Tablet (Amlodipine besylate) ..... One tab once daily Her updated medication list for this problem includes: Cardizem Cd 180 Mg Oral Capsule Extended Release 24 Hour (Diltiazem hcl coated beads) ..... One daily Pindolol 5 Mg Oral Tablet (Pindolol) ..... 1 tablet twice daily Adult Aspirin Regimen 81 Mg Oral Tablet Delayed Release (Aspirin) ..... 1 tab daily Claudio Gutiérrez MD [id number],S,I HS showed moderate GURU. w ill order titration. Claudio Gutiérrez MD Cardiology:Improved o ccassinal episodes Mckenna Del Torori NURSE PRN Cardiology:Denies any dizziness or syncope Mckenna Del Torori NURSE PRN Cardiology:HR stable Mckenna Estrella luri NURSE PRN Cardiology: B P today: 124/78 P rior BP: 148/98 (08/13/2023) Mckenna Estrellaluri NURSE PRN Cardiology:Palpitati ons improved A symptomatic O n pindolol Mckenna Del Torori NURSE PRN Cardiology: i nsurance did not cover cpap titration w ill refer for dental device consult Mckenna Del Torori NURSE PRN Cardiology: I recommended exercise weight loss. Mckenna Estrellaluri NURSE PRN Cardiology: i nsurance did not cover cpap titration w ill refer for dental device consult Claudio Gutiérrez MD Cardiology:continue pindolol d aily palpitatiuons w ear event monitor for 30 days Her updated medication list for this problem includes: Pindolol 5 Mg Tablet (Pindolol) ..... 1 tablet by mouth twice a day Adult Aspirin Regimen 81 Mg Tablet,delayed Release (dr/ec) (Aspirin) ..... 1 tablet by mouth once a day Claudio Gutiérrez MD Cardiology:This visi t has been a part of consistent, comprehensive, and ongoing medical management of the chronic medical condition(s) listed above for the patient BP today: 148/98 P rior BP: 154/100 (07/22/2021) Her updated medication list for this problem includes: Losartan 25 Mg Tablet (Losartan) ..... Take 1 tablet by mouth once a day Lasix 40 Mg Tablet (Furosemide) ..... 1 tablet by mouth once a day Hydrochlorothiazide 25 Mg Tablet (Hydrochlorothiazide) ..... Take 1 tablet by mouth once a day Hydrochlorothiazide 12.5 Mg Capsule (Hydrochlorothiazide) ..... 1 tablet by mouth once a day as needed Pindolol 5 Mg Tablet (Pindolol) ..... 1 tablet by mouth twice a day Adult Aspirin Regimen 81 Mg Tablet,delayed Release (dr/ec) (Aspirin) ..... 1 tablet by mouth once a day Claudio Gutiérrez MD Cardiology: A symptomatic O n pindolol H er updated medication list for this problem includes: Pindolol 5 Mg Tablet (Pindolol) ..... 1 tablet by mouth twice a day Adult Aspirin Regimen 81 Mg Tablet,delayed Release (dr/ec) (Aspirin) ..... 1 tablet by mouth once a day Claudio Gutiérrez MD Cardiology Claudio Gutiérrez MD Cardiology:Requires titration of CPAP Claudio Gutiérrez MD Cardiology:less freq uent H er updated medication list for this problem includes: Pindolol 5 Mg Tablet (Pindolol) ..... 1 tablet by mouth twice a day Adult Aspirin Regimen 81 Mg Tablet,delayed Release (dr/ec) (Aspirin) ..... 1 tablet by mouth once a day Claudio Gutiérrez MD Cardiology:Asymptoma tic O n pindolol H er updated medication list for this problem includes: Pindolol 5 Mg Tablet (Pindolol) ..... 1 tablet by mouth twice a day Adult Aspirin Regimen 81 Mg Tablet,delayed Release (dr/ec) (Aspirin) ..... 1 tablet by mouth once a day Claudio Gutiérrez MD Cardiology:I recommended exercis e weight loss. Claudio Gutiérrez MD Cardiology:Pt. has coby ventura prescribed Losartan 25mg once a day. BP today: 154/100 P rior BP: 140/90 (12/31/2020) Her updated medication list for this problem includes: Losartan 25 Mg Tablet (Losartan) ..... Take 1 tablet by mouth once a day Lasix 40 Mg Tablet (Furosemide) ..... 1 tablet by mouth once a day Hydrochlorothiazide 25 Mg Tablet (Hydrochlorothiazide) ..... Take 1 tablet by mouth once a day Hydrochlorothiazide 12.5 Mg Capsule (Hydrochlorothiazide) ..... 1 tablet by mouth once a day as needed Pindolol 5 Mg Tablet (Pindolol) ..... 1 tablet by mouth twice a day Adult Aspirin Regimen 81 Mg Tablet,delayed Release (dr/ec) (Aspirin) ..... 1 tablet by mouth once a day Claudio Gutiérrez MD Cardiology:Pt is razia hathaway for insurance to approve at home sleep study Claudio Gutiérrez MD Cardiology:Pt. has b een prescribed Losartan 25mg once a day. BP today: 154/100 P rior BP: 140/90 (12/31/2020) Claudio Gutiérrez MD Cardiology:I recomme nded the DASH diet for pt's weight gain. Claudio Gutiérrez MD Cardiology:Resolved T he following medications were removed from the medication list: Cardizem Cd 180 Mg Capsule,extended Release 24hr (Diltiazem hcl) ..... 1 capsule by mouth once a day & #13;Her updated medication list for this problem includes: Pindolol 5 Mg Tablet (Pindolol) ..... 1 tablet by mouth twice a day Adult Aspirin Regimen 81 Mg Tablet,delayed Release (dr/ec) (Aspirin) ..... 1 tablet by mouth once a day Claudio Gutiérrez MD Cardiology:well cont rolled T he following medications were removed from the medication list: Cardizem Cd 180 Mg Capsule,extended Release 24hr (Diltiazem hcl) ..... 1 capsule by mouth once a day Her updated medication list for this problem includes: Lasix 40 Mg Tablet (Furosemide) ..... 1 tablet by mouth once a day Hydrochlorothiazide 25 Mg Tablet (Hydrochlorothiazide) ..... Take 1 tablet by mouth once a day Hydrochlorothiazide 12.5 Mg Capsule (Hydrochlorothiazide) ..... 1 tablet by mouth once a day as needed Pindolol 5 Mg Tablet (Pindolol) ..... 1 tablet by mouth twice a day Adult Aspirin Regimen 81 Mg Tablet,delayed Release (dr/ec) (Aspirin) ..... 1 tablet by mouth once a day Claudio Gutiérrez MD Cardiology:Has tachy -hattie syndrome O n pindolol stop cardizem E vent monbitor results reviewed N o indication for pacemaker O rders: 9 9214 MOD 30-39min (CPT-98141) 9 9214 MOD 30-39min (CPT-14167) STOP Carbedizem Claudio Gutiérrez MD Cardiology: O rders: 9 9214 MOD 30-39min (CPT-46044) 9 9214 MOD 30-39min (CPT-77235) STOP Carbedizem Claudio Gutiérrez MD Cardiology:Will star t Lasix 40 daily c ontinue Potassium Claudio Gutiérrez MD Cardiology: B P today: 130/80 P rior BP: 143/81 (07/19/2020) Her updated medication list for this problem includes: Lasix 40 Mg Oral Tablet (Furosemide) ..... One tab by mouth daily Hydrochlorothiazide 25 Mg Oral Tablet (Hydrochlorothiazide) ..... Take 1 tablet by mouth every day Cardizem Cd 180 Mg Oral Capsule Extended Release 24 Hour (Diltiazem hcl coated beads) ..... One daily Pindolol 5 Mg Oral Tablet (Pindolol) ..... 1 tablet twice daily Hydrochlorothiazide 12.5 Mg Oral Capsule (Hydrochlorothiazide) ..... 1 tab daily prn Adult Aspirin Regimen 81 Mg Oral Tablet Delayed Release (Aspirin) ..... 1 tab daily Claudio Gutiérrez MD Cardiology: N ml venous doppler Claudio Gutiérrez MD Cardiology: S he had a recent 30 day telemonitor which showed episodes of SVT with rate in the 160s and sinus bradycardia in the 40s. H ad patient stop amlodipine, start Cardizem CD 180 mg/daily. Repeat monitor showed improvement. The following medications were removed from the medication list: Amlodipine Besylate 10 Mg Oral Tablet (Amlodipine besylate) ..... One tab once daily Her updated medication list for this problem includes: Cardizem Cd 180 Mg Oral Capsule Extended Release 24 Hour (Diltiazem hcl coated beads) ..... One daily Pindolol 5 Mg Oral Tablet (Pindolol) ..... 1 tablet twice daily Adult Aspirin Regimen 81 Mg Oral Tablet Delayed Release (Aspirin) ..... 1 tab daily Claudio Gutiérrez MD Cardiology:IHS showe d moderate GURU. w ill order titration. Claudio Gutiérrez MD Cardiology:Well cont rolled at home, per pt BP today: 143/81 P rior BP: 150/90 (06/11/2020) Claudio Gutiérrez MD Cardiology:Heart mon itor showed episodes of SVT with rate of 160s, and sinus bradycardia with rate 40s and 50s. Will have patient stop amlodipine, will start Cardizem CD 180 mg/daily. Will have pt wear a repeat 30 day monitor. The following medications were removed from the medication list: Amlodipine Besylate 10 Mg Oral Tablet (Amlodipine besylate) ..... One tab once daily & #13;Her updated medication list for this problem includes: Cardizem Cd 180 Mg Oral Capsule Extended Release 24 Hour (Diltiazem hcl coated beads) ..... One daily Pindolol 5 Mg Oral Tablet (Pindolol) ..... 1 tablet twice daily Adult Aspirin Regimen 81 Mg Oral Tablet Delayed Release (Aspirin) ..... 1 tab daily Claudio Gutiérrez MD Cardiology:She had a recent 30 day telemonitor which showed episodes of SVT with rate in the 160s and sinus bradycardia in the 40s. W ill have patient stop amlodipine, will start Cardizem CD 180 mg/daily. Will have pt wear a repeat 30 day monitor. The following medications were removed from the medication list: Amlodipine Besylate 10 Mg Oral Tablet (Amlodipine besylate) ..... One tab once daily Her updated medication list for this problem includes: Cardizem Cd 180 Mg Oral Capsule Extended Release 24 Hour (Diltiazem hcl coated beads) ..... One daily Pindolol 5 Mg Oral Tablet (Pindolol) ..... 1 tablet twice daily Adult Aspirin Regimen 81 Mg Oral Tablet Delayed Release (Aspirin) ..... 1 tab daily Claudio Gutiérrez MD Cardiology:Nml venous doppler Surjit Gutiérrez MD Cardiology:Well cont rolled at home, per pt B P today: 150/90 P rior BP: 140/90 (05/03/2020) Her updated medication list for this problem includes: Pindolol 5 Mg Oral Tablet (Pindolol) ..... 1 tablet twice daily Amlodipine Besylate 10 Mg Oral Tablet (Amlodipine besylate) ..... One tab once daily Hydrochlorothiazide 12.5 Mg Oral Capsule (Hydrochlorothiazide) ..... 1 tab daily prn Adult Aspirin Regimen 81 Mg Oral Tablet Delayed Release (Aspirin) ..... 1 tab daily Claudio Gutiérrez MD Cardiology:Heart mon itor showed episodes of SVT with rate of 160s, and sinus bradycardia with rate 40s and 50s. will start on pindolol 5mg BID and repeat 30 day tele H er updated medication list for this problem includes: Pindolol 5 Mg Oral Tablet (Pindolol) ..... 1 tablet twice daily Amlodipine Besylate 10 Mg Oral Tablet (Amlodipine besylate) ..... One tab once daily Adult Aspirin Regimen 81 Mg Oral Tablet Delayed Release (Aspirin) ..... 1 tab daily Claudio Gutiérrez MD Cardiology:Heart mon itor showed episodes of SVT with rate of 160s, and sinus bradycardia with rate 40s and 50s. will start on pindolol 5mg BID and repeat 30 day tele H er updated medication list for this problem includes: Pindolol 5 Mg Oral Tablet (Pindolol) ..... 1 tablet twice daily Amlodipine Besylate 10 Mg Oral Tablet (Amlodipine besylate) ..... One tab once daily Adult Aspirin Regimen 81 Mg Oral Tablet Delayed Release (Aspirin) ..... 1 tab daily Claudio Gutiérrez MD Cardiology: P t presented to [facility] with near syncope and bradycardia. Will check heart monitor. She denies any recent near syncope or syncope. Claudio Gutiérrez MD Cardiology: B P today: 140/90 P rior BP: 106/68 (04/05/2020) Her updated medication list for this problem includes: Hydrochlorothiazide 12.5 Mg Oral Capsule (Hydrochlorothiazide) ..... 1 tab daily prn Adult Aspirin Regimen 81 Mg Oral Tablet Delayed Release (Aspirin) ..... 1 tab daily Claudio Gutiérrez MD Cardiology: W ill check venous doppler Claudio Gutiérrez MD Cardiology: P t reports continuing to have some palpitations. Currently awaiting monitor results. H er updated medication list for this problem includes: Adult Aspirin Regimen 81 Mg Oral Tablet Delayed Release (Aspirin) ..... 1 tab daily Claudio Gutiérrez MD Cardiology: H er updated medication list for this problem includes: Hydrochlorothiazide 12.5 Mg Oral Capsule (Hydrochlorothiazide) ..... 1 tab daily prn Adult Aspirin Regimen 81 Mg Oral Tablet Delayed Release (Aspirin) ..... 1 tab daily BP today: 106/68 Claudio Gutiérrez MD Cardiology:Pt report s having some palpitations. She is currently wearing a monitor, I will check results Her updated medication list for this problem includes: Adult Aspirin Regimen 81 Mg Oral Tablet Delayed Release (Aspirin) ..... 1 tab daily Claudio Gutiérrez MD Cardiology:Pt presen waqas to [facility] with near syncope and bradycardia. Will check heart monitor. She denies any recent near syncope or syncope. Claudio Gutiérrez MD Cardiology:Pt presen waqas to [facility] with near syncope and bradycardia. Will check heart monitor. She denies any recent near syncope or syncope. Claudio Gutiérrez MD Date Name Monitor - Telemetry (Mobile Cardiac) Sleep Study Titratio n Sleep Study Home Monitor - Telemetry (Mobile Cardiac) Monitor - Telemetry (Mobile Cardiac) Venous Doppler Unila teral LLE Complete Echo HISTORY OF PROCEDURES Procedure Date Procedure Name Provider Procedure Notes S tatus Complex e/m visit add on Claudio Gutiérrez MD completed Complex e/m visit add on Claudio Gutiérrez MD completed EKG Claudio Gutiérrez MD completed EKG Claudio Gutiérrez MD completed Event Monitor Claudio Gutiérrez MD complet ed Event Monitor Claudio Gutiérrez MD complet ed EKG Claudio Gutiérrez MD completed
--- NOTE | 2024-04-06 11:16 | WPDSLEEPSTUD ---
Sleep Study Date of Study: 03/14/24 Ordering Provider: Gerson Bucio MD Interpreting Physician: Jie Null MD Sleep Study Type: Polysomnogram Height: 1.68 m Weight: 101.605 kg Body Mass Index: 36.1 Neck Circumference (inches): 15.5 [place]: 6 Reason for Sleep Study Mode snoring, restless sleep, has to use sleeping pills, cannot sleep with anyone else in the bed * 07/24/2020, home sleep test @ [facility]- miderate GURU, AHI 18.6, lowest saturaiton 84%. Sleep History Dejah Obrien is a 58-year-old woman who has a long history of restless sleep, loud snoring, difficulty falling asleep and staying asleep. She had a home sleep test 3 years ago that showed moderate obstructive sleep apnea but she did not pursue treatment at the time. She can not sleep with her in the bed because she moves her arms and legs quite a bit and snores loudly. Her medical comorbidities include hypertension, bradycardia, constipation, arthritis and iron deficiency. She has seen a demurrage agent. She frequently awakens from sleep feeling short of breath. She frequently awakens at night with heartburn, belching or coughing. She always snores loudly enough that others complain about it. She occasionally has difficulty sleeping when she has a cold. She occasionally wakes up gasping for breath at night. She frequently has breathing problems at night observed by others. She occasionally sweats excessively at night. She frequently notices her heart pounding or beating irregularly at night. She does not fall asleep in the day, rarely falls asleep involuntarily, never falls asleep while driving. She does not have loss of muscle tone with strong emotion. 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 She does not feel paralyzed on waking or falling asleep. She occasionally has vivid dreamlike scenes upon awakening or falling asleep. She rarely feels afraid to go to sleep. She rarely has nightmares. She rarely remembers her dreams. She occasionally has racing thoughts. She does not feel sad or depressed. She frequently has anxiety. She occasionally has muscular tension. She frequently notices parts of her body jerking. She occasionally kicks at night. She frequently has crawling and aching feelings in her legs at night. She constantly has leg pain during the day. She frequently has morning jaw pain and frequently grinds her teeth at night. She occasionally is bothered by pain during the day. She frequently is awakened by pain during the night. She frequently wakes up feeling stiff in the morning, wakes with sore achy muscles and pain in the neck and spine. She has fatigue, memory problems, concentration difficulties and insomnia. She does not awaken with morning headaches. Normal bedtime is 9:00 p.m., and the amount of time it takes for her to fall asleep varies. She typically awakens at least 3 times at night to go to the bathroom and sometimes gets a snack. She may be able to return to sleep quickly but sometimes it takes an hour for her to return to sleep. Her normal wake time is 5:00 a.m.. On weekends, bedtime is 11:00 p.m. and wake time is 7:00 a.m.. She estimates getting 5 hours of sleep on most nights. She does not generally take naps in the afternoon or evening. A short nap lasting 10-15 minutes may be refreshing. She is drowsy for at least an hour after waking. She feels better in the afternoon compared to other times of day. 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 with obstruction Kidney abnormality of fetus on ultrasound Surgical History Surgical History History of breast lump removal History of partial hysterectomy Family History Family History Mother Hypertension Social History Social History Smoking status: Never smoker Second hand tobacco smoke exposure: No Alcohol intake: current Substance use: never Substance use type: does not use Do You Feel Safe in your Home?: Yes Lack of Transportation: No Lack of Food: Never True Current Housing: I Have Housing Concerned About Future Housing: No Difficulty Paying Gas/Electric Bills: No Difficulty Paying for Meds: No Currently Unemployed: No Education: High School Diploma/GED Difficulty w/ Childcare or Family Care: No Spiritual care concerns: No Medications Home Medications ?Medication ?Instructions ?Recorded ?Confirmed ?Type Vitamin D3 1 tablet PO DAILY 12/15/19 01/25/24 History multivitamin 1 tablet PO DAILY 12/15/19 01/25/24 History vitamin E (dl, acetate) 400 unit 400 unit PO DAILY 12/15/19 01/25/24 History chewable tablet potassium chloride 20 mEq 20 meq PO DAILY 05/30/20 01/25/24 History tablet,extended release levothyroxine 125 mcg tablet 125 mcg PO DAILY #90 tabs 09/05/20 01/25/24 Rx (Synthroid) pindolol 5 mg tablet 2.5 mg PO BID 11/18/21 01/25/24 History hydralazine 25 mg tablet 25 mg PO BID #60 tabs 03/16/22 01/25/24 Rx pravastatin 20 mg tablet 20 mg PO DAILY #30 tabs 03/16/22 01/25/24 Rx hydrochlorothiazide 25 mg tablet 25 mg PO DAILY #90 tabs 06/15/22 01/25/24 Rx losartan 100 mg tablet See Rx Instructions .Route 11/18/23 01/25/24 Rx .COMPLEX #90 tabs ferrous sulfate 325 mg (65 mg 325 mg PO DAILY 12/09/23 01/25/24 History iron) tablet semaglutide (weight loss) 2.4 2.4 mg subcut WEEKLY 12/09/23 01/25/24 History mg/0.75 mL subcutaneous pen injector (Wegovy) eszopiclone 2 mg tablet 2 mg PO QHS #1 tablet 01/25/24 01/25/24 Rx Sleep Procedure A full night polysomnogram using the [employer] multi-channel system recorded the standard physiologic parameters including EEG, EOG, submentalis EMG, anterior tibialis EMG, EKG, body position, nasal and oral airflow using nasal pressure sensor and thermistor. Respiratory parameters of chest and abdominal movements were recorded with Respiratory Inductance Plethysmography belts. Oxygen saturation was recorded by pulse oximetry. Video monitoring was also performed. Sleep stages, periodic limb movements, and EEG arousals were scored in 30 second epochs according to the criteria of the AASM Scoring Manual. The Apnea-Hypopnea Index was calculated using AASM guidelines for definition of hypopnea while scoring respiratory events, 3% criteria. She did not qualify for split night study early enough in the night so this was conducted as a basic nocturnal polysomnogram. Sleep Architecture The total recording time was 548.7 minutes. The total sleep time was 296.5 minutes. Sleep latency was 36.6 minutes. REM latency was - minutes. Sleep efficiency was 54.0%. The patient had 40 awakenings for an awakening index of 8.1. Wake after sleep onset time was 215.5 minutes. The patient spent 63.0 minutes, 21.2% of total sleep time in Stage N1. The patient spent 194.5 minutes, 65.6% in Stage N2. The patient spent 39.0 minutes, 13.2% in Stage N3. The patient spent no time in Stage REM sleep. Respiratory Analysis The patient had 54 hypopneas, 5 obstructive apneas, no mixed or central central apneas for an overall Apnea Hypopnea Index of 11.9 using a 3% criteria. The REM Apnea Hypopnea Index was 0 as she had no REM on this study. The NREM Apnea Hypopnea Index was 11.9.. The patient had a Central Apnea Hypopnea Index of 0. There were no Respiratory Effort Related Arousals. There was no evidence of [place] Respirations. Arousals There were 106 total arousals for an arousal index of 21.5. There were 55 spontaneous arousals for an index of 11.1. There were 26 arousals due to respiratory events for an index of 5.3. There were 8 arousals due to periodic limb movements for an index of 1.6. There were 9 arousals due to isolated limb movements for an index of 1.8. Periodic Limb Movements The patient had 26 isolated limb movements with an index of 5.3. The patient had 98 periodic limb movements with an index of 19.8. Patient had a total of 124 limb movements with a total limb movement index of 25.1. Oximetry Data The patient had an average oxygen saturation of 93.9% in sleep with a minimum oxygen saturation of 88% and a maximum oxygen saturation of 98%. The patient had 25 oxygen desaturations that were 4% or greater resulting in an Oxygen Desaturation Index of 5.1. The patient spent 0.1 minutes, no time with an oxygen saturation below 88%. Snoring Profile Snoring was mild to moderate. Cardiac Profile The EKG showed normal sinus rhythm, average pulse rate of 63.2 bpm with a minimum pulse of rate of 56 bpm and a maximum pulse rate of 78 bpm. No arrhythmias noted. EEG Profile Unremarkable, no evidence of seizures. Assessment and Plan Assessment and Plan (1) GURU (obstructive sleep apnea): Code(s): G47.33 - Obstructive sleep apnea (adult) (pediatric) Status: Acute Assessment and Plan: 1) This basic nocturnal polysomnogram on 03/14/2024 shows mild obstructive sleep apnea, the apnea-hypopnea index using a 3% criteria is 11.9 with [id number] snoring and desaturation to 88%. No significant time was spent below 88%. Patient has medical comorbidities including hypertension and as such she is a candidate for PAP therapy. This test underestimates her degree of sleep disordered breathing because she had no REM and sleep was very fragmented. Sleep efficiency was low at 54%. She had a prolonged sleep latency. The patient probably took a nap on the day prior to this study. She took no sleep aid at the sleep lab. I recommend that this patient be prescribed Resmed AirSense 11 AutoPAP 5-15 cm H2O, CPAP mask/filters/tubing and humidifier chamber. This should be used with all episodes of sleep. Compliance should be reviewed within 31-90 days of starting therapy for usage greater than 4 hours per night greater than 70% of the nights. The patient should be asked about symptoms such as excessive daytime sleepiness, quality of sleep, decreased nocturia, increased mental functioning such as memory, mood, and concentration. The patient does not respond to auto PAP, she should have a dedicated full night CPAP titration in the sleep lab with a sleep aid available to use, if needed, to initiate and maintain sleep during the titration. She should not nap on the day preceding the CPAP titration. 2) Her sleep history is strongly suggestive of restless legs syndrome. She has uncomfortable feelings in her legs in the evening..Ferritin level is indicated to exclude iron deficiency anemia as a contributing factor. Ferritin should be 75 ng/mL or greater. If ferritin is below this, iron supplementation should be given to achieve ferritin of 75 ng/mL. There are nonpharmacologic methods to treat limb movements including daily exercise, stretching calf muscles before bed, avoiding excessive amounts of caffeine and alcohol, vitamin B supplementation, magnesium lotion massaged into legs before bed, and use of a weighted blanket. Pharmacologic therapy is very effective for restless legs syndrome and limb movements during sleep and may include [id number] voltage-gated calcium channel ligands such as gabapentin which is preferable to dopaminergic agents which can have augmentation. Other treatments can include opioids and benzodiazepines. 3) Her sleep history indicates that she frequently has morning jaw pain and frequently grinds her teeth at night. This basic nocturnal polysomnogram did not show evidence of bruxism but this can be difficult to see on an overnight sleep test. Bruxism is often improved with initiation of PAP therapy. She should ask her dentist about evidence of worn enamel on her dental exam. She may benefot from using PAP or may need additional treatment. Data The data obtained during this sleep study is adequate for interpretation. Certification This sleep study has been reviewed by a board certified sleep medicine physician.
[2024-04-12 22:19] VITALS: BMI 36.1
== END 2024-03-15 07:59 | disposition home or self-care (01) ==
PROVIDERS: PCP Family Medicine; Visit Provider Internal Medicine Pulmonary Disease
DX: G47.10 Hypersomnia, unspecified (principal); G47.33 Obstructive sleep apnea (adult) (pediatric)
CPT/HCPCS: 95810

== ENCOUNTER 2024-05-29 00:33 | Day surgery (SDC) | payer OTHER, SELFPAY ==
[2024-05-22 08:47] VITALS: BMI 37.0
--- OUTSIDE RECORDS SUMMARY | 2024-05-29 00:35 | XMS_ITS | Clinical Summary ---
Author Organization [facility] rofessional Office [place] Address [address] [place] [id number] Care Team Providers Care Waste Minimization Technician Name Role Phone Doc Faith MD Primary Care Provider [phone] Allergies Active Allergy Reactions Criticality Noted Date Comments Penicillins Hives High 08/07/2015 Medications metoprolol tartrate (LOPRESSOR) 12.5 mg Tablet Take 12.5 mg by mouth 2 times daily. Active amLODIPine (NORVASC) 10 mg tablet Take 10 mg by mouth daily. Active methylPREDNISol one (MEDROL DOSPACK) 4 mg Tablets, Dose PackIndications :Allergic contact dermatitis due to plants, except food Per package directions. 1 Package 0 08/07/2015 Active Active Problems No known active problems Social History Tobacco Use Types Packs/Day Years Used Date Smoking Tobacco: Never Alcohol Use Standard Drinks/Week Comments No 0 (1 standard drink = 0.6 oz pur e alcohol) Comments No Sex and Gender Information Value Date Recorded Sex Assigned at Not on file Legal Sex Female 2:32 PM CDT Gender Identity Not on file Sexual Orientation Not on file Last Filed Vital Signs Vital Sign Reading Time Taken Comments Blood Pressure 127/83 08/07/2015 2:48 PM CDT Pulse 66 08/07/2015 2:48 PM CDT Temperature 36.9 C (98.4 F) 08/07/2015 2:48 PM CDT Respiratory Rate 18 08/07/2015 2:48 PM CDT Oxygen Saturation 98% 08/07/2015 2:48 PM CDT Inhaled Oxygen Concentration - - Weight 98.9 kg (218 lb) 08/07/2015 2:48 PM CDT Height 167.6 cm (5' 6 ) 08/07/2015 2:48 PM CDT Body Mass Index 35.19 08/07/2015 2:48 PM CDT Plan of Treatment Health Maintenance Due Date Last Done Comments DTAP/TDAP/TD VACCINES (1 - Tdap) 1985 HEPATITIS B VACCINES (1 of 3 - 19+ 3-dose series) 1985 HPV/Cotest (21-29) 07/06/1987 PAP SMEAR 07/06/1987 CERVICAL CANCER SCREENING 1996 HPV/Cotest (30-65) 1996 PAP SMEAR 1996 BREAST CANCER SCREENING 2006 COLORECTAL SCREENING 07/06/2011 Colorectal Cancer Screening 07/06/2011 FIT-DNA Q 3 years 07/06/2011 FIT/FOBT Q 1 year 07/06/2011 Flex Sig/CT Colonography Q 5 years 07/06/2011 ZOSTER VACCINE (1 of 2) 2016 INFLUENZA VACCINE (#1) 2023 PNEUMOCOCCAL VACCINE 0-49 YEARS Aged Out No longer eligible based on patient's age to complete this topic Insurance [facility] [id number] Care Teams Waste Minimization Technician Relationship Specialty Start Date End Date Doc Faith MD [address] [place] [id number] PCP - General Internal Medicine 08/07/15
--- OUTSIDE RECORDS SUMMARY | 2024-05-29 00:36 | XMS_ITS | Clinical Summary ---
Author Organization [facility] Address [address], [place] [address] Care Team Providers Care Veterinarian Assistant Name Role Phone Nicholas Wood MD Primary Care Provider [phone] Fortunato Henriquez NP Unavailable [phone] Allergies Active Allergy Reactions Criticality Noted Date Comments Honeydew Other (See comments) Low 09/13/2023 melons Penicillins Medications hydrALAZINE (APRESOLINE) 25 mg tablet Take 1 tablet (25 mg total) by mouth 2 (two) times a day 4 Active hydroCHLOROthia zide (HYDRODIURIL) 25 mg tablet Take 1 tablet (25 mg total) by mouth daily 4 Active losartan (COZAAR) 100 mg tablet Take 1 tablet (100 mg total) by mouth daily 4 Active pravastatin (PRAVACHOL) 20 mg tablet Take 1 tablet (20 mg total) by mouth every evening 4 Active sertraline (ZOLOFT) 100 mg tablet Take 1 tablet (100 mg total) by mouth daily 4 Active docusate sodium (COLACE) 100 mg capsule Take 1 capsule (100 mg total) by mouth 2 (two) times a day Active ergocalciferol (VITAMIN D) 50,000 unit capsule Take 1 capsule (50,000 Units total) by mouth once a week wednesday Active ferrous sulfate 325 mg (65 mg of elemental iron) tablet Take 1 tablet (325 mg total) by mouth 2 (two) times a day 4 Active levothyroxine (SYNTHROID) 125 mcg tablet Take 1 tablet (125 mcg total) by mouth daily 4 Active pindoloL (VISKEN) 5 mg tablet Take 1 tablet (5 mg total) by mouth daily Active potassium chloride ER 20 mEq CR tablet Take 1 tablet (20 mEq total) by mouth daily 4 Active Wegovy 2.4 mg/0.75 mL auto-injector Inject 0.75 mL (2.4 mg total) under the skin every 7 days Wednesdays at 1930 4 Active Active Problems Problem Noted Date Diagnosed Date Chest pain, unspecified type 09/13/2023 Surgical History Surgery Date Site/Laterality Comments IR FINE NEEDLE ASPIRATION W IMAGE GUIDANCE 03/11/2015 N/A Medical History Medical History Date Comments Hypertension Bradycardia Social History Tobacco Use Types Packs/Day Years Used Date Smoking Tobacco: Never Smokeless Tobacco: Never [facility] Aligned TeleHealthities Answer Date Recorded In the past 12 months has [employer], gas, oil, or water [employer] threatened to shut off services in your home? No 09/15/2023 Social Connection and Isolat ion Panel [NHANES] Answer Date Recorded In a typical week, how many times do you talk on the phone with family, friends, or neighbors? More than three times a week 09/15/2023 How often do you get togethe r with friends or relatives? More than three times a week 09/15/2023 How often do you attend [facility] or adventist services? More than 4 times per year 09/15/2023 Do you belong to any clubs o r organizations such as hinduism groups, unions, fraternal or athletic groups, or school groups? No 09/15/2023 How often do you attend meet ings of the clubs or organizations you belong to? Never 09/15/2023 Are you , , di vorced, , never , or living with a partner? 09/15/2023 AUDIT-C Answer Date Recorded Q1: How often do you have a drink containing alcohol? Never 09/13/2023 Q2: How many drinks containi ng alcohol do you have on a typical day when you are drinking? Patient does not drink Q3: How often do you have si x or more drinks on one occasion? Never 09/13/2023 Overall Financial Resource Strain (CARDIA) Answe r Date Recorded How hard is it for you to pa y for the very basics like food, housing, medical care, and heating? Not hard at all 09/15/2023 Hunger Vital Sign Answer Date Recorded Within the past 12 months, y ou worried that your food would run out before you got the money to buy more. Never true 09/15/19 24 Within the past 12 months, t he food you bought just didn't last and you didn't have money to get more. Never true 09/15/2023 PRAPARE - Transportation Answer Date Re corded In the past 12 months, has l ack of transportation kept you from medical appointments or from getting medications? No 08/17 In the past 12 months, has l ack of transportation kept you from meetings, work, or from getting things needed for daily living? No 09/15/2023 Housing Stability Vital Sign Answer Dean e Recorded In the last 12 months, was t here a time when you were not able to pay the mortgage or rent on time? No 09/15/2023 In the past 12 months, how m any times have you moved where you were living? 1 09/15/2023 At any time in the past 12 m [facility], were you homeless or living in a assisted (including now)? No 09/15/2023 Personal Safety Answer Date Recorded Have you ever been in or are you currently in a harmful physical or emotional relationship or is someone making you feel afraid or unsafe? 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 Gender Identity Not on file Sexual Orientation Not on file Obstetrics History Last Filed Vital Signs Vital Sign Reading Time Taken Comments Blood Pressure 136/62 09/16/2023 8:09 AM CDT Pulse 84 09/16/2023 8:09 AM CDT Temperature 37 C (98.6 F) 09/16/2023 8:09 AM CDT Respiratory Rate 19 09/16/2023 8:09 AM CDT Oxygen Saturation 100% 09/16/2023 8:09 AM CDT Inhaled Oxygen Concentration - - Weight 101.6 kg (224 lb) 09/16/2023 3:48 PM CDT Height 167.6 cm (5' 5.98 ) 09/16/2023 3:48 PM CD T Body Mass Index 36.17 09/16/2023 3:48 PM CDT Plan of Treatment Health Maintenance Due Date Last Done Comments Cervical Cancer Screening 1966 Colon Cancer Screening-Colonoscopy 1966 Depression Screening 1966 Hepatitis C Screening 1966 DTaP/Tdap/Td Vaccine (1 - Tdap) 1977 Hepatitis B Screening 1984 Regular Well Visit/Exam 18-07/05/1984 Zoster Vaccine (1 of 2) 2016 Breast Cancer Screening-Mammogram 01/06/2017 01/07/2016, 06/09/2012 Covid-19 Vaccine ( season) 2023 12/13/2022, 04/25/2020, 04/04/2020 Influenza Vaccine (Season Ended) 2024 12/13/2022, 12/24/2021, 12/02/2020, Additional history exists Pneumococcal vaccine <65 Aged Out No longer eligible based on patient's age to complete this topic Medical Devices Implanted Type Area Unemployment Benefits Claims Taker Device Identifier Shelf Expiration Date Model / Serial / Lot Clips Bilateral: Breast Procedures Procedure Name Priority Date/Time Associated Diagnosis Comments SCREENING MAMMOGRAM Routine 06/09/2012 3 :23 PM CDT from Last 3 Months or Most Recently Relevant to Health Maintenance Results * Screening Mammogram (06/09/2012 3:23 PM CDT) Anatomical Region Laterality Modality Breast N/A Mammography 06/09/2012 3:23 PM CDT Narrative 06/10/2012 1:15 PM CDT FRANCOIS BROWNE M.D. FINAL REPORT ACC# Date Time Exam [id number] Jun 09, 2012 15:23:00 [facility] [address] Screening Mamm Bilat Technologist(s): Mesha Crisostomo; ; EXAMINATION: Mammogram Findings: A Full-Field Digital Screening Mammogram was performed. Views obtained: bilateral craniocaudal; bilateral mediolateral oblique. Computer Aided Detection was performed with [employer] 1.3 version 9.3. The present examination has been compared to prior imaging studies performed at [facility] on 05/11/2011 and 07/31/2009. The breasts are heterogeneously dense which could obscure a lesion on mammography. There are calcifications in the right breast. Finding remains unchanged from the prior study. There is no suspicious abnormality in the left breast. IMPRESSION: Calcifications in the right breast are benign. Annual screening mammography is recommended. OVERALL FINAL ASSESSMENT: BI-RADS CATEGORY 2: Benign. Requested By: WILLIAM ARELLANO NP Dictated By: FRANCOIS BROWNE M.D. on Jun 10 2012 1:15P This document has been electronically signed by: FRANCOIS BROWNE M.D. on Jun 10 2012 1:14P Procedure Note Provider, MD Paulette - 06/07/2016 FRANCOIS BROWNE M.D. FINAL REPORT ACC# Date Time Exam [id number] Jun 09, 2012 15:23:00 [facility] [address] Screening Mamm Bilat Technologist(s): Mesha Crisostomo; ; EXAMINATION: Mammogram Findings: A Full-Field Digital Screening Mammogram was performed. Views obtained: bilateral craniocaudal; bilateral mediolateral oblique. Computer Aided Detection was performed with [employer] 1.3 version 9.3. The present examination has been compared to prior imaging studies performed at [facility] on 05/11/2011 and 07/31/2009. The breasts are heterogeneously dense which could obscure a lesion on mammography. There are calcifications in the right breast. Finding remains unchanged from the prior study. There is no suspicious abnormality in the left breast. IMPRESSION: Calcifications in the right breast are benign. Annual screening mammography is recommended. OVERALL FINAL ASSESSMENT: BI-RADS CATEGORY 2: Benign. Requested By: WILLIAM ARELLANO NP Dictated By: FRANCOIS BROWNE M.D. on Jun 10 2012 1:15P This document has been electronically signed by: FRANCOIS BROWNE M.D. on Jun 10 2012 1:14P us Historical Provider MD [facility] MAMMO PROCEDURES Belen harvey Result from Last 3 Months or Most Recently Relevant to Health Maintenance Insurance [facility] B[facility] CHOICE PLUS [facility] Advance Directives For more information, please contact: [phone] * Full Code (Latest Code Status on File) Date Activated Date Inactivated Comments 09/13/2023 3:05 PM 09/16/2023 8:32 PM Care Teams Veterinarian Assistant Relationship Specialty Start Date End Date Nicholas Wood MD PCP - General Family Medicine 04/19/20 Fortunato Henriquez NP [address] [place] [address] Nurse Practitioner Family Practice 04/06/24
--- OUTSIDE RECORDS SUMMARY | 2024-05-29 00:36 | XMS_ITS | Referral Summary ---
Author Organization [facility] Address [address] [place] [address] Care Team Providers Care Electron Beam Photo Mask Maker Name Role Phone Nicholas Wood MD Primary Care Provider [phone] Fortunato Henriquez NP Unavailable [phone] Allergies Active Allergy Reactions Criticality Noted Date [...] Diagnosed Date Chest pain, unspecified type 09/13/2023 Social History Tobacco Use Types Packs/Day Years Used Date Smoking Tobacco: Never Smokeless Tobacco: Never [facility] Answer Date Recorded In the past 12 months has [employer], [employer], oil, or water [employer] threatened to shut off services in your [...] week 09/15/2023 How often do you attend [facility] or voodoo services? More than 4 times per year 09/15/2023 Do you belong to any clubs o r organizations such as confucianist groups, unions, fraternal or athletic groups, or [...] time in the past 12 m [facility], were you homeless or living in a care home (including now)? No 09/15/2023 Personal Safety Answer Date Recorded Have you ever been in or are you currently in a harmful physical or emotional relationship or is someone making you feel afraid or unsafe? 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 FINAL REPORT ACC# Date Time Exam [id number] Jun 09, 2012 15:23:00 [facility] [address] Screening Mamm Bilat Technologist(s): Mesha Crisostomo; ; EXAMINATION: Mammogram Findings: A Full-Field Digital Screening Mammogram was performed. Views obtained: bilateral craniocaudal; bilateral mediolateral oblique. Computer Aided Detection was performed with [employer] version 9.3. The present examination has been compared to prior imaging studies performed at [facility] on 05/11/2011 and 07/31/2009. The breasts are heterogeneously dense which could obscure a lesion on mammography. There are calcifications in the right breast. Finding remains unchanged from the prior study. There is no suspicious abnormality in the left breast. IMPRESSION: Calcifications in the right breast are benign. Annual screening mammography is recommended. OVERALL FINAL ASSESSMENT: BI-RADS CATEGORY 2: Benign. Requested By: WILLIAM ARELLANO FRONT OFFICE SPECIALIST Dictated By: FRANCOIS BROWNE M.D. on Jun 10 2012 1:15P This document has been electronically signed by: FRANCOIS BROWNE M.D. on Jun 10 2012 1:14P Procedure Note Provider, MD Paulette - 06/07/2016 FRANCOIS BROWNE M.D. FINAL REPORT ACC# Date Time Exam [id number] Jun 09, 2012 15:23:00 [facility] [address] Screening Mamm Bilat Technologist(s): Mesha Crisostomo; ; EXAMINATION: Mammogram Findings: A Full-Field Digital Screening Mammogram was performed. Views obtained: bilateral craniocaudal; bilateral mediolateral oblique. Computer Aided Detection was performed with [employer] version 9.3. The present examination has been compared to prior imaging studies performed at [facility] on 05/11/2011 and 07/31/2009. The breasts are heterogeneously dense which could obscure a lesion on mammography. There are calcifications in the right breast. Finding remains unchanged from the prior study. There is no suspicious abnormality in the left breast. IMPRESSION: Calcifications in the right breast are benign. Annual screening mammography is recommended. OVERALL FINAL ASSESSMENT: BI-RADS CATEGORY 2: Benign. Requested By: WILLIAM ARELLANO FRONT OFFICE SPECIALIST Dictated By: FRANCOIS BROWNE M.D. on Jun 10 2012 1:15P This document has been electronically signed by: FRANCOIS BROWNE M.D. on Jun 10 2012 1:14P [facility] Provider MD [facility] MAMMO PROCEDURES Belen harvey Result from Last 3 Months or Most Recently Relevant to Health Maintenance Insurance [facility] BENEFIT PL[facility] CHOICE PLUS [facility] PL[facility] Advance Directives For more information, please contact: [phone] * Full Code (Latest Code Status on File) Date Activated Date Inactivated Comments 09/13/2023 3:05 PM 09/16/2023 8:32 PM Care Teams Electron Beam Photo Mask Maker Relationship Specialty Start Date End Date Nicholas Wood MD PCP - General Family Medicine 04/19/20 Fortunato Henriquez NP [address] [place] [address] Nurse Practitioner Family Practice 04/06/24
--- OUTSIDE RECORDS SUMMARY | 2024-05-29 00:36 | XMS_ITS | Encounter Summary ---
Author Organization [facility] Address [address] [place] [address] Care Team Providers Care Oracle Fusion Middleware Architect Name Role Phone Rene Agosto MD Unavailable [phone] Marion Terry NP Primary Care Pr ovider Encounter Details Date Type Department Care Team (Late st Contact Info) Description 09/12/2021 Lab Requisition [facility] [address] [place] [id number] [place] [address] [place] [id number] Social History Tobacco Use Types Packs/Day Years Used Date Smoking Tobacco: Never Smokeless Tobacco: Never Alcohol Use Standard Drinks/Week Comments Never 0 (1 standard drink = 0.6 oz pur e alcohol) wine Comments No Sex and Gender Information Value Date Recorded Sex Assigned at Not on file 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 Answer Date of Assessment Author No 03/31/2020 6:26 PM Anne-Marie Osborne RN * Is person blind or have serious difficulty seeing? Answer Date of Assessment Author No 03/31/2020 6:26 PM Anne-Marie Osborne RN * Does person have serious difficulty walking/climbing stairs? Answer Date of Assessment Author No 03/31/2020 6:26 PM Anne-Marie Osborne RN * Does person have difficulty dressing/bathing? Answer Date of Assessment Author No 03/31/2020 6:26 PM Anne-Marie Osborne RN * Does person have difficulty doing errands alone? Answer Date of Assessment Author No 03/31/2020 6:26 PM Anne-Marie Osborne RN documented as of this encounter Mental Status * Does person have difficulty concentrating/remembering/making decisions? Answer Entry Date Author No 03/31/2020 6:26 PM Anne-Marie Osborne RN documented in this encounter Plan of Treatment Not on file documented as of this encounter Procedures Procedure Name Priority Date/Time Associated Diagnosis Comments DERMATOPATHOLOGY Routine 09/11/2021 12:0 0 AM CDT documented in this encounter Results * DERMATOPATHOLOGY (09/11/2021 12:00 AM CDT) Case Report Dermatopathology Report Case: [id number] Authorizing Provider: Gerson Walsh MD Collected: 09/11/2021 12:00 AM Ordering Location: [facility] Lab Received: 09/12/2021 11:53 AM Pathologist: Tash Garcia MD Specimen: Skin, right frontal scalp 2 1:40 PM CDT DERMATOPATHOLOGY LABORATORY Final [...] specimen consists of a punch biopsy measuring [id number]. Jar 0. 2 1:40 PM CDT DERMATOPATHOLOGY [...] characteristic determined by the Dermatopathology Laboratory at [facility], directed by Dr. Saul Prajapati. These tests need not be, and therefore are not, approved by the [place] Food and Drug Administration. The tests are used for clinical purposes. Billing Codes Specimen Charges Stain Charges 49746 1 2 1:40 PM CDT DERMATOPATHOLOGY LABORATORY Embedded Images 2 1:40 PM CDT DERMATOPATHOLOGY LABORATORY Pathology/Cytolog y TISSUE SPECIMEN FROM SKIN / Unknown 09/11/2021 09/12/2021 11:53 AM CDT Gerson Walsh MD LAB - PATHOLOGY/CYTOLOGY O RDERABLES Final Result DERMATOPATHOLOGY LABORATORY [facility] - Department of Dermatology [facility] Special[facility] Medicine [address] [place] [address], [facility] [phone] documented in this encounter Visit Diagnoses Not on filedocumented in this encounter Care Teams Oracle Fusion Middleware Architect Relationship Specialty Start Date End Date Marion eTrry NP [address] [place] [id number] PCP - General 09/12/21 Rene Agosto MD Document Image Technician Cardiology 12/04/14 documented as of this encounter
--- OUTSIDE RECORDS SUMMARY | 2024-05-29 00:36 | XMS_ITS | CONTINUITY OF CARE DOCUMENT ---
Author Name tosinrosario, tosinrosario Address Unknown Organization [facility] Address [address] [place] [address] Phone [phone] Care Team Providers Care Dry House Operator Name Role Phone Brock LINN, Claudio Unavailable [phone] Brock LINN, Claudio Unavailable [phone] Navjot Chow Unavailable PROBLEMS Condition Status Date Provider Notes Cardiology examination active Claudio Marmolejo Family History of Hypertension: completed 9 - Claudio Gutiérrez MD Palpitations active Claudio Gutiérrez MD Near syncope active Claudio Gutiérrez MD Bradycardia active Claudio Gutiérrez MD Hypertension active Claudio Gutiérrez MD Calf pain, left active Claudio Gutiérrez MD Tachy hattie syndrome active Claudio Gutiérrez MD Snoring active Claudio Gutiérrez MD GURU, moderate active Claudio Gutiérrez MD Obesity active Claudio Gutiérrez MD ENCOUNTERS Date Type Provider Location Encounter Diag nosis - In-person encounter Office Visit Mckenna Hager NP [facility] Office - In-person encounter Office Visit Claudio Gutiérrez MD [facility] Family History of Hypertension:GURU, moderate - [...] blood pressure, diastolic 78 mm[Hg] Ky braulio [place] blood pressure, systolic 124 mm[Hg] Kyl ia [place] weight E&M 225.6 [lb_av] [facility] pulse rate 80 /min [facility] respiratory rate E&M 14 /min Adriananshul thompson oxygen saturation, oximetry 97 % [facility] blood pressure, cuff size regular Ky braulio [place] height E&M 65.5 [in_i] [facility] Body Mass Index (Ratio) 36.87 kg/m2 [...] /min Minoo thompson height E&M 65.5 [in_i] Miono Des blood pressure, diastolic 100 mm[Hg] Li nkLogic blood pressure, systolic 154 mm[Hg] Kristie kLogic blood pressure, diastolic 100 mm[Hg] Ch astity Dnayel blood pressure, systolic 154 mm[Hg] Karlee stity [...] Darnell blood pressure, diastolic 90 mm[Hg] Tr minesh Darnell blood pressure, systolic 140 mm[Hg] Try kim Darnell oxygen saturation, oximetry 96 % Jazlyn Darnell respiratory rate E&M 16 /min Trynett Darnell pulse rate 59 /min Trykim Darnell weight E&M 230 [lb_av] [facility] height E&M 65.5 [in_i] [facility] Darnell Body Mass Index (Ratio) 39.65 kg/m2 [...] camryn Kathy blood pressure, systolic 150 mm[Hg] [facility] heldanilo Shresthay blood pressure, resting Yes Nikita wayne Kathy oxygen saturation, oximetry 97 % Mesha Kathy respiratory rate E&M 20 /min Petra ca Pinal pulse rate 76 /min Mesha Kathy weight E&M 227 [lb_av] Mesha Shresthay height E&M 65.5 [in_i] Mesha [place]inal Body Mass Index (Ratio) 35.72 kg/m2 Claudio Gutiérrez MD oxygen saturation, oximetry 98 % [facility] pressure, diastolic 90 mm[Hg] Ch astity Danyel blood pressure, systolic 140 mm[Hg] Karlee stity Danyel pulse rate 72 /min [facility] respiratory rate E&M 16 /min [facility] weight E&M 218 [lb_av] [facility] 65.5 [in_i] [facility] Body Mass Index (Ratio) 34.57 kg/m2 Claudio Gutiérrez MD blood pressure, resting Yes [facility] tiki Block blood pressure, diastolic 68 mm[Hg] [...] supply, Prescribed by MICHELLE OWUSU, Filled 07/23/2020 mlgmtaxk-zjdxwicdt-DW 3.5-10,000-1 mg/mL-unit/mL-% drops,suspension active Instill 4 drop [...] Value Provider alcohol use no Mckennakatey Estrellaluri WEIGHT CONTROL LECTURER smoking status Never smoker Mckenna Estrellalu ri WEIGHT CONTROL LECTURER alcohol use no Claudio Gutiérrez MD smoking status Never smoker Claudio Marmolejo alcohol use no Claudio Gutiérrez MD smoking status Never smoker Claudio Marmolejo social history reviewed E&M revi ewed - [...] Payer name Policy type / Coverage type [place] red green party ID [employer]EFITS [employer] insurance [employer] [id number] ADVANCE DIRECTIVES Name Date DISCUSSED - NO DECISION MADE TREATMENT PLAN Date Name Performer [id number],C,Requires titr ation of CPAP Claudio Gutiérrez MD [id number],C,l ess frequent H er updated medication list for this problem includes: Pindolol 5 Mg Tablet (Pindolol) ..... 1 tablet by mouth twice a day Adult Aspirin Regimen 81 Mg Tablet,delayed Release (dr/ec) (Aspirin) ..... 1 tablet by mouth once a day Claudio Gutiérrez MD [id number],C,A symptomatic O n pindolol H er updated medication list for this problem includes: Pindolol 5 Mg Tablet (Pindolol) ..... 1 tablet by mouth twice a day Adult Aspirin Regimen 81 Mg Tablet,delayed Release (dr/ec) (Aspirin) ..... 1 tablet by mouth once a day Claudio Gutiérrez MD [id number],C,I recommended exercise weight loss. Claudio Gutiérrez MD [id number],C,P t. has been prescribed Losartan 25mg once [...] mouth once a day Claudio Gutiérrez MD [id number],C,P t is waiting for insurance to approve at home sleep study Claudio Gutiérrez MD [id number],C,P t. has been prescribed Losartan 25mg once a day. BP today: 154/100 P rior BP: 140/90 (12/31/2020) Claudio Gutiérrez MD [id number],C,I recommended the DASH diet for pt's weight gain. Claudio Gutiérrez MD [id number],C,R esolved T he following medications were removed [...] mouth once a day Claudio Gutiérrez MD [id number],C,w ell controlled T he following medications were [...] mouth once a day Claudio Gutiérrez MD [id number],S,H as tachy-hattie syndrome O n pindolol stop cardizem E vent monbitor results reviewed N o indication for pacemaker O rders: 9213 MOD 30-39min (CPT-39505) 9213 MOD 30-39min (CPT-85552) STOP Carbedizem Claudio Gutiérrez MD [id number],S, O rders: 9 9214 MOD 30-39min (CPT-32409) 9 9214 MOD 30-39min (CPT-78806) STOP Carbedizem Claudio Gutiérrez MD [id number],C,W ill start Lasix 40 daily c ontinue Potassium Claudio Gutiérrez MD [id number],S, B P today: 130/80 P rior BP: [...] ..... 1 tab daily Claudio Gutiérrez MD [id number],S, N ml venous doppler Claudio Gutiérrez MD [id number],S, S he had a recent 30 day [...] ..... 1 tab daily Claudio Gutiérrez MD [id number],S,I HS showed moderate GURU. w ill order titration. Claudio Gutiérrez MD Cardiology:Improved o ccassinal episodes Mckenna Del Torori WEIGHT CONTROL LECTURER Cardiology:Denies any dizziness or syncope Mckenna Del Torori WEIGHT CONTROL LECTURER Cardiology:HR stable Mckenna Estrella luri WEIGHT CONTROL LECTURER Cardiology: B P today: 124/78 P rior BP: 148/98 (08/13/2023) Mckenna Estrellaluri WEIGHT CONTROL LECTURER Cardiology:Palpitati ons improved A symptomatic O n pindolol Mckenna Del Torori WEIGHT CONTROL LECTURER Cardiology: i nsurance did not cover cpap titration w ill refer for dental device consult Mckenna Del Torori WEIGHT CONTROL LECTURER Cardiology: I recommended exercise weight loss. Mckenna Estrellaluri WEIGHT CONTROL LECTURER Cardiology: i nsurance did not cover cpap [...] pacemaker O rders: 9 9214 MOD 30-39min (CPT-33781) 9 9214 MOD 30-39min (CPT-04221) STOP Carbedizem Claudio Gutiérrez MD Cardiology: O rders: 9 9214 MOD 30-39min (CPT-43740) 9 9214 MOD 30-39min (CPT-03399) STOP Carbedizem lCaudio Gutiérrez MD Cardiology:Will star t Lasix 40 [...] Gutiérrez MD Cardiology: P t presented to [facility] with near syncope and bradycardia. Will check [...] denies any recent near syncope or syncope. lCaudio Gutiérrez MD Date Name Monitor - Telemetry [...]
--- OUTSIDE RECORDS SUMMARY | 2024-05-29 00:36 | XMS_ITS | Encounter Summary ---
Author Organization [facility] Healthcare Address [address] [place] [address] Care Team Providers Care Veterinary Hospital Attendant Name Role Phone Unknown, Notinfile Primary Care Provider Unavail able Nicholas Wood MD Primary Care Provider [phone] Fortunato Henriquez NP Unavailable [phone] Encounter Details Date Type Department Care Team (Late st Contact Info) Description 04/18/2020 Telephone [facility] [address] [address] Ashlyn Walden, RT Social History Tobacco Use Types Packs/Day Years Used Date Smoking Tobacco: Never Assessed Comments No Sex and Gender Information Value Date Recorded Sex Assigned at Not on file Legal Sex Female 10:09 AM INSPECTOR OPTICAL INSTRUMENT Gender Identity Not on file Sexual Orientation Not on file documented as of this encounter Plan of Treatment Not on file documented as of this encounter Visit Diagnoses Not on filedocumented in this encounter Additional Health Concerns Infection Onset Date Last Indicated Resolved Time Varicella/Zoster, contact + airborne Comment:Dr. Frederick requested iso be removed. Pt has area on 1 dermatome. 09/14/2023 09/14/2023 2:48 PM CDT documented as of this encounter Care Teams Veterinary Hospital Attendant Relationship Specialty Start Date End Date Unknown, Allison PCP - General 03/28/20 04/18/20 Nicholas Wood MD PCP - General Family Medicine 04/19/20 Fortunato Henriquez NP [address] [place] [address] Nurse Practitioner Family Practice 04/06/24 documented as of this encounter
--- OUTSIDE RECORDS SUMMARY | 2024-05-29 00:36 | XMS_ITS | Clinical Summary ---
Author Organization [facility] Address [address] [place] [address] Care Team Providers Care Internal Grinder Tender Name Role Phone Unavailable Primary Care Provider [...]
--- OUTSIDE RECORDS SUMMARY | 2024-05-29 00:36 | XMS_ITS | Clinical Summary ---
Author Organization [facility] Address [address] [place] [address] Care Team Providers Care Waiter And Cashier Name Role Phone Rene Agosto MD Unavailable [phone] Marion Terry NP Primary Care Pr ovider Source Comments [facility],non-owned Affiliates and Associated Physician Practices is amultiple site organization consisting of ambulatory clinics and hospital sitesin [place], [place], [place] and [place]. This disclosure is being madepursuant to the Care Everywhere program and may not contain all information available regarding this patient. Last updated 17.[facility] Allergies Active Allergy Reactions Criticality Noted Date Comments Penicillins Rash,Other High 01/13/2010 Medications * Be aware that medications may not be up to date on this document. Alwaysverify current medications with the patient. FEROSUL 325 (65 Fe) MG tablet 9 Active fluticasone-jenaro meterol (ADVAIR/WIXELA) 250-50 MCG/DOSE inhaler Inhale 1 puff by mouth 2 times daily Active pantoprazole EC (PROTONIX) 40 MG tabletIndicatio ns:Helicobacter pylori (H. pylori) infection TAKE 1 TABLET BY MOUTH TWICE DAILY 30 tablet 0 Active aspirin (ASPIRIN) 81 MG chew tablet Take 1 (one) tablet by mouth once daily 30 tablet 2 1 Active hydroCHLOROthia zide (MICROZIDE) 12.5 MG capsule Take 1 (one) capsule by mouth once daily 30 capsule 1 Active potassium chloride ER (KLOR-CON M) 20 MEQ tablet Take 1 (one) tablet by mouth once daily 30 tablet 1 Active magnesium oxide (MAG-OX) 400 MG tablet Take 1 (one) tablet by mouth once daily 1 Active levothyroxine (SYNTHROID) 100 MCG tablet Take 1 (one) tablet by mouth once daily 30 tablet 1 Active cetirizine (ZYRTEC) 10 MG tablet 1 Active dilTIAZem coated beads 24hr (CARDIZEM CD) 180 MG capsule 1 Active Docusate Sodium (DSS) 100 MG 1 Active vitamin D, ergocalciferol, (DRISDOL) 1.25 MG (18711 UT) capsule 1 Active furosemide (LASIX) 40 MG tablet 1 Active pindolol (VISKEN) 5 MG tablet 1 Active HYDROcodone-avi taminophen (NORCO) 5-325 MG tablet Take 1 (one) tablet by mouth every 4 hours as needed for Pain 15 tablet 1 Active Additional Information Patient not taking.Reported on 12/10/2020 Active Problems Problem Noted Date Diagnosed Date Hypokalemia 03/31/2020 Sinus bradycardia 03/31/2020 Episodic altered awareness 03/31/2020 Nausea without vomiting 03/31/2020 Resolved Problems Problem Noted Date Diagnosed Date Resolved Date Diarrhea 03/31/2020 04/28/2020 Immunizations Immunization Administration Dates Next Due Covid [employer] primary monoval ent 12+ yr 0.3mL Purple [...] on file Legal Sex Female 7:23 AM 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/INSTRUCTIONAL DESIGNER Gender Identity Not on file Sexual Orientation Not on file Last Filed Vital Signs Vital Sign Reading Time Taken Comments Blood Pressure 110/78 12/10/2020 8:21 AM CDT Pulse 61 12/10/2020 8:21 AM CDT Temperature 36.4 C (97.5 F) 12/10/2020 8:21 AM CDT Respiratory Rate 16 12/10/2020 8:21 AM CDT [...] 03/31/2020, 03/31/2020, Additional history exists COVID-19 VACCINE (3 - season) 2023 04/25/2020, 04/04/2020 DEPRESSION SCREENING 02/16/2024 INFLUENZA VACCINE (Season Ended) 2024 LIPID TESTING 04/01/2025 04/01/2020 COLON MONITORING 05/25/2027 05/24/2017, 10/2017, 05/24/2017 COLONOSCOPY - COLON CA SCREENING 05/25/2027 05/24/2017, 05/24/2017, 05/24/2017 Colorectal Cancer Screening 05/25/2027 HIV SCREENING Completed 03/31/2020 HIB VACCINE Aged Out No longer eligi ble based on patient's age to complete this topic HPV VACCINE Aged Out No longer eligi ble based on patient's age to complete this topic MENINGOCOCCAL (Group B) VACCINE SHARED DECISION-MAKING Aged Out No longer eligible based on patient's age to complete this topic MENINGOCOCCAL GROUPS A/C/Y/W VACCINE Aged Out No longer eligible based on patient's age to complete this topic Procedures Procedure Name Priority Date/Time Associated Diagnosis Comments BASIC METABOLIC PANEL (CALCIUM TOTAL) AM Draw 04/01/2020 3:52 AM MEDIA/INSTRUCTIONAL DESIGNER LIPID PROFILE STAT 04/01/2020 3:52 AM MEDIA/INSTRUCTIONAL DESIGNER Sinus bradycardia HIV-1 HIV-2 ANTIBODY + HIV P24 AG PANEL STAT 03/31/2020 12:48 PM MEDIA/INSTRUCTIONAL DESIGNER ENDOSCOPY, COLON, SCREENING Routine 05/24/2017 1:00 PM CDT MAMMO BILAT SCREENING Routine 01/07/2016 10:52 AM MEDIA/INSTRUCTIONAL DESIGNER Encounter for screening mammogram for breast cancer from Last 3 Months or Most Recently Relevant to Health Maintenance Results * (ABNORMAL) BASIC METABOLIC PANEL (CALCIUM TOTAL) (04/01/2020 3:52 AM MEDIA/INSTRUCTIONAL DESIGNER) Glucose 85 70 - 105 mg/dL 04/01/2020 5:06 AM MEDIA/INSTRUCTIONAL DESIGNER [facility] Sodium 142 136 - 145 mmol/L 04/01/2020 5:06 AM MEDIA/INSTRUCTIONAL DESIGNER [facility] Potassium 3.5 3.5 - 5.1 mmol/L 04/01/2020 5:06 AM MEDIA/INSTRUCTIONAL DESIGNER [facility] Chloride 110(H) 98 - 107 mmol/L 04/01/2020 5:06 AM MEDIA/INSTRUCTIONAL DESIGNER [facility] CO2 27 23 - 31 mmol/L 04/01/2020 5:06 AM MEDIA/INSTRUCTIONAL DESIGNER [facility] Calcium 9.5 8.4 - 10.4 mg/dL 04/01/2020 5:06 AM MEDIA/INSTRUCTIONAL DESIGNER [facility] Anion Gap 5(L) 8 - 18 mmol/L 04/01/2020 5:06 AM [facility] Comment:Attention clinician: Reference Range change. BUN 15 9.8 - 20.1 mg/dL 04/01/2020 5:06 AM [facility] Creatinine 0.92 0.57 - 1.11 mg/dL 04/01/2020 5:06 AM [facility] eGFR by MDRD >60 >60 mL/min/1.7 3m2 04/01/2020 5:06 AM [facility] eGFR by MDRD >60 >60 mL/min/1.7 3m2 04/01/2020 5:06 AM [facility] Blood BLOOD SPECIMEN / Unknown Venipuncture / Unknown 04/01/2020 3:52 AM MEDIA/INSTRUCTIONAL DESIGNER 04/01/2020 4:30 AM MEDIA/INSTRUCTIONAL DESIGNER Ruchi Godinez SECURITY PROFESSIONAL-TECHNICAL AID LAB - CHEMISTRY ORDERABLE S Final Result [facility] [address] [place] [address] * (ABNORMAL) LIPID PROFILE (04/01/2020 3:52 AM MEDIA/INSTRUCTIONAL DESIGNER) Cholesterol 224(H) <200 mg/dL 04/01/2020 5:06 AM [facility] Triglycerides 85 <150 mg/dL 04/01/2020 5:06 AM [facility] HDL Cholesterol 70 >40 mg/dL 1 5:06 AM [facility] LDL Calculated 137(H) <130 mg/dL 04/01/2020 5:06 AM [facility] VLDL Calculated 17 <=30 mg/dL 5:06 AM [facility] Chol HDL Ratio 3.2 <4.5 04/01/2020 5:06 AM [facility] LDL/HDL Ratio 2.0 <5.0 04/01/2020 5:06 AM [facility] Blood BLOOD SPECIMEN / Unknown Venipuncture / Unknown 04/01/2020 3:52 AM MEDIA/INSTRUCTIONAL DESIGNER 04/01/2020 4:30 AM MEDIA/INSTRUCTIONAL DESIGNER Claudio Gutiérrez MD LAB - CHEMISTRY ORDERABLES Final Result Performing Organization Address [facility] de Phone Number [facility] [address] [place] [address] * HIV-1 HIV-2 ANTIBODY + HIV P24 AG PANEL (03/31/2020 12:48 PM MEDIA/INSTRUCTIONAL DESIGNER) Pathologist [facility] HIV1/2 Ab + P24 Ag Non Reactive Non Reactive 03/31/2020 1:39 PM MEDIA/INSTRUCTIONAL DESIGNER [facility] Blood BLOOD SPECIMEN / Unknown Venipuncture / Unknown 03/31/2020 12:48 PM MEDIA/INSTRUCTIONAL DESIGNER 03/31/2020 1:00 PM MEDIA/INSTRUCTIONAL DESIGNER Narrative [facility] - 03/31/2020 1:39 PM MEDIA/INSTRUCTIONAL DESIGNER No Laboratory evidence of HIV infection. us Dennis Hargrove MD LAB - CHEMISTRY ORDERABLES Belen l Result Performing Organization Address [facility] de Phone Number [facility] [address] [place] [address] * ENDOSCOPY, COLON, SCREENING (05/24/2017 1:00 PM CDT) [facility] Report Endoscopy POC _ Patient Name: Dejah Obrien Procedure Date: 05/24/2017 1:00 PM Date of : 1965 Admit Type: Outpatient Age: 51 Gender: Female Attending MD: Silas Potts MD _ Procedure: Colonoscopy Indications: Screening for colorectal malignant neoplasm Providers: Silas Potts MD (Doctor), Meghana Adams RN, Es Ocampo, Pharmacy Technician Assistant Referring MD: Doc Faith MD (Referring MD) Medicines: Monitored Anesthesia Care Complications: No immediate complications. _ Procedure: Pre-Anesthesia Assessment: - ASA Grade Assessment: II - A patient with mild systemic disease. - Airway Examination: Mallampati Class I (tonsillar pillars visualized). After I obtained informed consent, the scope was passed under direct vision. Throughout the procedure, the patient's blood pressure, pulse, and oxygen saturations were monitored continuously. The Colonoscope was introduced through the anus and advanced to the cecum, identified by appendiceal orifice and ileocecal valve. The colonoscopy was performed without difficulty. The patient tolerated the procedure well. Impression: - One 4 mm polyp in the sigmoid colon, removed with a cold biopsy forceps. Resected and retrieved. - Three 3 mm polyps in the rectum, removed with a cold biopsy forceps. Resected and retrieved. - Diverticulosis. Findings: A 4 mm polyp was found in the sigmoid colon. The polyp was sessile. The polyp was removed with a cold biopsy forceps. Resection and retrieval were complete. Estimated blood loss: none. Three sessile polyps were found in the rectum. The polyps were 3 mm in size. These polyps were removed with a cold biopsy forceps. Resection and retrieval were complete. Diverticula were found in the colon. _ Recommendation: - Await pathology results. - Repeat colonoscopy in 5-10 years for surveillance based on pathology results. Procedure Code(s): --- Professional --- 74091, Colonoscopy, flexible; with biopsy, single or multiple --- Technical --- 16444, Colonoscopy, flexible; with biopsy, single or multiple Diagnosis Code(s): --- Professional --- Z12.11, Encounter for screening for malignant neoplasm of colon D12.5, Benign neoplasm of sigmoid colon K62.1, Rectal polyp K57.30, Diverticulosis of large intestine without perforation or abscess without bleeding --- Technical --- Z12.11, Encounter for screening for malignant neoplasm of colon D12.5, Benign neoplasm of sigmoid colon K62.1, Rectal polyp K57.30, Diverticulosis of large intestine without perforation or abscess without bleeding CPT copyright 2015 [employer]. All rights reserved. The codes documented in this report are preliminary and upon clinical reviewer review may be revised to meet current compliance requirements. Silas Potts MD 05/24/2017 1:28:42 PM This report has been signed electronically. Number of Addenda: 0 Note Initiated On: 05/24/2017 1:00 PM [facility] 05/24/2017 1:00 PM CDT us Silas Potts MD GI PROCEDURE ORDERABLES Edited R esult - Final [facility] * MAMMO SCREENING DIGITAL IMAGE BILAT G0202 (01/07/2016 10:52 AM MEDIA/INSTRUCTIONAL DESIGNER) Anatomical Region Laterality Modality Breast Bilateral Mammography 01/22/2016 11:3 0 AM MEDIA/INSTRUCTIONAL DESIGNER Addenda Addendum by Noemí Martin MD on 02/24/2016 5:22 PM MEDIA/INSTRUCTIONAL DESIGNER Previous mammograms from [facility] on 02/05/2015, 06/09/2012, 05/11/2011, and 04/09/2010 are now available for review. The mass in the upper central right breast is unchanged from the previous mammograms and is considered benign. The new impression, assessment, and recommendation should be as follows: IMPRESSION: No evidence of malignancy in either breast. ASSESSMENT: BIRADS Category 2: Benign finding(s). RECOMMENDATION: Bilateral screening mammogram in one year. Impressions 01/22/2016 12:13 PM MEDIA/INSTRUCTIONAL DESIGNER Questioned mass in the upper outer right breast. No evidence of malignancy in the left breast. ASSESSMENT: BIRADS Category 0: Incomplete - Needs additional imaging evaluation. RECOMMENDATION: Right breast targeted ultrasound and possible mammography. Thank you for allowing us to participate in the care of your patient. [facility] utilizes [employer] as a reminder system to notify patients of their next recommended mammogram. Narrative 01/22/2016 12:13 PM MEDIA/INSTRUCTIONAL DESIGNER EXAMINATION: Digital screening mammogram on 01/07/2016. Computer assisted detection was utilized. PRIOR: Attempt was made to retrieve prior images from [facility]; however, none were available. 04/09/2010 diagnostic right [...] was made to retrieve prior images from [facility]; however, none were available. 04/09/2010 diagnostic right [...] participate in the care of your patient. [facility] utilizes [employer] as a reminder system to notify patients of their next recommended mammogram. Doc Faith Jr., MD MAMMO ORDERABLES Edite d Result - Final from Last 3 Months or Most Recently Relevant to Health Maintenance Insurance HEALTH CARE [facility] CARE HEALTH CARE [facility] Advance Directives * Full Code (Latest Code Status on File) Date Activated Date Inactivated Comments 03/31/2020 1:37 PM 04/01/2020 5:37 PM Care Teams Waiter And Cashier Relationship Specialty Start Date End Date Marion Terry NP [address] [place] [address] PCP - General 09/12/21 Rene Agosto MD Supervisor Of Way Cardiology 12/04/14
[2024-05-29 11:24] VITALS: BP 168/102; PULSE 62; RESP 19; TEMP 36.2; O2SAT 100
--- NOTE | 2024-05-29 11:30 | P.PNAN_ITS ---
Anes - Initial Pre Proc Eval Procedure: Operation Date: 05/29/24 12:30 Proposed Procedures p Screening Colonoscopy - Alex Issa MD Date/Time: 05/29/24 11:30 Surgeon: Alex Issa MD Pre Op Diagnosis: Screening Patient Data Age: 58 Gender: F Height: 1.65 m Weight: 99.7 kg Last Vital Signs Temp 97.2 F L 05/29/24 11:24 Pulse 62 05/29/24 11:24 Resp 19 05/29/24 11:24 BP 168/102 H 05/29/24 11:24 Pulse Ox 100 05/29/24 11:24 O2 Del Method Room Air 05/29/24 11:24 Allergies Allergy/AdvReac Type Severity Reaction Status Date / Time Penicillins Allergy Severe HIVES Verified 05/29/24 11:21 Home Medications ?Medication ?Instructions ?Recorded ?Confirmed ?Type Vitamin D3 1 tablet PO DAILY 12/15/19 05/29/24 History multivitamin 1 tablet PO DAILY 12/15/19 05/29/24 History vitamin E (dl, acetate) 400 unit 400 unit PO WEEKLY 12/15/19 05/29/24 History chewable tablet potassium chloride 20 mEq 40 meq PO DAILY 05/30/20 05/29/24 History tablet,extended release levothyroxine 125 mcg tablet 125 mcg PO DAILY #90 tabs 09/05/20 05/29/24 Rx (Synthroid) pindolol 5 mg tablet 2.5 mg PO BID 11/18/21 05/29/24 History hydralazine 25 mg tablet 25 mg PO BID #60 tabs 03/16/22 05/29/24 Rx pravastatin 20 mg tablet 20 mg PO DAILY #30 tabs 03/16/22 05/29/24 Rx hydrochlorothiazide 25 mg tablet 25 mg PO DAILY #90 tabs 06/15/22 05/29/24 Rx losartan 100 mg tablet See Rx Instructions .Route 11/18/23 05/29/24 Rx .COMPLEX #90 tabs ferrous sulfate 325 mg (65 mg 325 mg PO DAILY 12/09/23 05/29/24 History iron) tablet semaglutide (weight loss) 2.4 2.4 mg subcut WEEKLY 12/09/23 05/22/24 History mg/0.75 mL subcutaneous pen injector (Wegovy) eszopiclone 2 mg tablet 2 mg PO QHS #1 tablet 01/25/24 05/29/24 Rx sertraline 100 mg tablet 100 mg PO Q24H 05/22/24 05/29/24 History tirzepatide (weight loss) 7.5 7.5 mg subcut WEEKLY 05/22/24 05/29/24 History mg/0.5 mL subcutaneous pen injector (Zepbound) Patient hx anesthesia problems: none Family hx anesthesia problems: none Results Review: All pre-operative results and documents have been reviewed as part of the pre- operative evaluation. 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 Kidney abnormality of fetus on ultrasound Surgical History Surgical History History of breast lump removal History of partial hysterectomy Family History Family History Mother Hypertension Social History Social History Smoking status: Never smoker Second hand tobacco smoke exposure: No Alcohol intake: current Substance use: never Substance use type: does not use Do You Feel Safe in your Home?: Yes Lack of Transportation: No Lack of Food: Never True Current Housing: I Have Housing Concerned About Future Housing: No Difficulty Paying Gas/Electric Bills: No Difficulty Paying for Meds: No Currently Unemployed: No Education: High School Diploma/GED Difficulty w/ Childcare or Family Care: No Living arrangements: with family Spiritual care concerns: No Anes - Eval Final PreProcedure Day of Procedure 05/29/24 11:30 Patient weight: obese Heart: regular rate and rhythm Lungs: clear to auscultation Airway: Mallampati scale class II Neurological: alert and oriented Last oral intake: >/= 8 hours ASA classification: III Emergent: no Anesthetic plan: proceed Anesthesia type and monitoring: general GIVS and standard monitoring Results Review: All pre-operative results and documents have been reviewed as part of the pre- operative evaluation. Informed Consent: The patient's anesthetic plan and its attendant risks and benefits were discussed with the patient/family/POA. Questions were solicited and answers provided to the satisfaction of the patient/family/POA.
[2024-05-29] MEDS: LACTATED RINGERS 1,000 ML 150 ML IV CONT (11:33)
--- NOTE | 2024-05-29 11:58 | PM.HPGS ---
History of Present Illness History of Present Illness Consent: Risks, benefits, and alternatives have been discussed and questions answered. Patient agrees to proceed with procedure. 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 Kidney abnormality of fetus on ultrasound Surgical History Surgical History History of breast lump removal History of partial hysterectomy Family History Family History Mother Hypertension Social History Social History Smoking status: Never smoker Second hand tobacco smoke exposure: No Alcohol intake: current Substance use: never Substance use type: does not use Do You Feel Safe in your Home?: Yes Lack of Transportation: No Lack of Food: Never True Current Housing: I Have Housing Concerned About Future Housing: No Difficulty Paying Gas/Electric Bills: No Difficulty Paying for Meds: No Currently Unemployed: No Education: High School Diploma/GED Difficulty w/ Childcare or Family Care: No Living arrangements: with family Spiritual care concerns: No Meds Home Medications and Allergies Home Medications ?Medication ?Instructions ?Recorded ?Confirmed ?Type Vitamin D3 1 tablet PO DAILY 12/15/19 05/29/24 History multivitamin 1 tablet PO DAILY 12/15/19 05/29/24 History vitamin E (dl, acetate) 400 unit 400 unit PO WEEKLY 12/15/19 05/29/24 History chewable tablet potassium chloride 20 mEq 40 meq PO DAILY 05/30/20 05/29/24 History tablet,extended release levothyroxine 125 mcg tablet 125 mcg PO DAILY #90 tabs 09/05/20 05/29/24 Rx (Synthroid) pindolol 5 mg tablet 2.5 mg PO BID 11/18/21 05/29/24 History hydralazine 25 mg tablet 25 mg PO BID #60 tabs 03/16/22 05/29/24 Rx pravastatin 20 mg tablet 20 mg PO DAILY #30 tabs 03/16/22 05/29/24 Rx hydrochlorothiazide 25 mg tablet 25 mg PO DAILY #90 tabs 06/15/22 05/29/24 Rx losartan 100 mg tablet See Rx Instructions .Route 11/18/23 05/29/24 Rx .COMPLEX #90 tabs ferrous sulfate 325 mg (65 mg 325 mg PO DAILY 12/09/23 05/29/24 History iron) tablet semaglutide (weight loss) 2.4 2.4 mg subcut WEEKLY 12/09/23 05/22/24 History mg/0.75 mL subcutaneous pen injector (Wegovy) eszopiclone 2 mg tablet 2 mg PO QHS #1 tablet 01/25/24 05/29/24 Rx sertraline 100 mg tablet 100 mg PO Q24H 05/22/24 05/29/24 History tirzepatide (weight loss) 7.5 7.5 mg subcut WEEKLY 05/22/24 05/29/24 History mg/0.5 mL subcutaneous pen injector (Zepbound) Allergies Allergy/AdvReac Type Severity Reaction Status Date / Time Penicillins Allergy Severe HIVES Verified 05/29/24 11:21 Vital Signs Vital Signs - 24 hr 05/29/24 11:24 Temperature 97.2 F L Pulse Rate 62 Respiratory Rate 19 Blood Pressure 168/102 H Pulse Oximetry 100 Oxygen Delivery Room Air Exam Const: General: comfortable and no acute distress HENMT: Face/Nose/Sinus: Normal nares present Eyes: General: appearance normal, both eyes and all related structures Neck: Neck: no JVD Resp: Auscultation: clear to auscultation bilaterally Cardio: Rate: regular rate Rhythm: regular rhythm GI: Inspection: non-distended GI Palp: Yes Soft to palpation Skin: General skin exam: normal color Neuro: Speech: normal speech Extrem: General: normal to inspection Psych: Mental Status: mental status grossly normal Assessment and Plan Assessment and plan (1) Colon cancer screening: Code(s): Z12.11 - Encounter for screening for malignant neoplasm of colon Status: Acute Assessment and Plan: colonoscopy
[2024-05-29 12:15] VITALS: BP 113/63; PULSE 63; RESP 18; O2SAT 100
[2024-05-29 12:25] VITALS: BP 106/80; PULSE 62; RESP 16; O2SAT 100
[2024-05-29 12:35] VITALS: BP 126/76; PULSE 62; RESP 17; O2SAT 98
== END 2024-05-29 12:43 | disposition home or self-care (01) ==
PROVIDERS: PCP Family Medicine; Referring Provider Registered Nurse; Visit Provider Internal Medicine Gastroenterology
PROC: 0DJD8ZZ Inspection of Lower Intestinal Tract, Via Natural or Artificial Opening Endoscopic (ICD-10-PCS; CPT 45378; principal; 2024-05-29 12:30)
DX: Z12.11 Encounter for screening for malignant neoplasm of colon (principal); D12.2 Benign neoplasm of ascending colon; K64.8 Other hemorrhoids; K57.30 Diverticulosis of large intestine without perforation or abscess without bleeding; G47.33 Obstructive sleep apnea (adult) (pediatric); E66.9 Obesity, unspecified; Z68.36 Body mass index [BMI] 36.0-36.9, adult; Z98.890 Other specified postprocedural states; Z79.85 Long-term (current) use of injectable non-insulin antidiabetic drugs; Z87.19 Personal history of other diseases of the digestive system
CPT/HCPCS: 45380; 88305; J2704; J7120

== ENCOUNTER 2024-07-19 10:44 | Outpatient (CLI) | payer OTHER, SELFPAY ==
[2024-07-19 11:21] LABS: Basophils Absolute Auto 0.1 K/mm3 (0.0-0.1); Basophils Percent Auto 0.9 % (0.2-1.2); Eosinophils Absolute Auto 0.1 K/mm3 (0-0.3); Eosinophils Percent Auto 2.6 % (0-4.4); Hematocrit 43.5 % (37.0-47.0); Hemoglobin 13.1 g/dL (12.0-15.0); Immature Granulocyte Absolute 0.01 K/mm3 (0.00-0.031); Immature Granulocyte Percent A 0.2 % (0-0.5); Lymphocytes Absolute Auto 1.77 K/mm3 (0.9-3.2); Lymphocytes Percent Auto 33.4 % (18.3-44.2); Mean Corpuscular HGB Conc 30.1 g/dl (32-36); Mean Corpuscular Hemoglobin 24.8 pg (26-34); Mean Corpuscular Volume 82.2 fl (80-100); Mean Platelet Volume 10.4 fl (7.4-10.4); Monocytes Absolute Auto 0.5 K/mm3 (0.1-0.6); Monocytes Percent Auto 9.4 % (2.6-8.5); Neutrophils Absolute Auto 2.8 K/mm3 (1.3-6.7); Neutrophils Percent Auto 53.5 % (45.5-73.1); Platelet Count Result 241 k/mm3 (150-375); Red Blood Count 5.29 M/mm3 (4.2-5.4); Red Cell Distribution Width 14.9 % (11.5-14.5); White Blood Count 5.3 K/mm3 (4.5-10.0)
[2024-07-19 11:33] LABS: Alanine Aminotransferase 25 U/L (6-35); Albumin Level 4.3 g/dL (3.5-5.1); Alkaline Phosphatase 105 U/L (38-126); Anion Gap 6 mmol/L (4-12); Aspartate Amino Transferase 30 U/L (14-36); Bilirubin,Total 0.6 mg/dL (0.2-1.3); Blood Urea Nitrogen 14 mg/dL (7-17); Calcium 9.6 mg/dL (8.4-10.2); Carbon Dioxide 29 mmol/L (22-30); Chloride 107 mmol/L (98-107); Cholesterol 205 mg/dL (0-200); Estimated Glomerular Filt Rate 60; Glucose 91 mg/dL (65-110); HDL Direct 84 mg/dL; Potassium 3.9 mmol/L (3.4-5.0); Sodium 142 mmol/L (137-145); Total Protein 7.4 g/dL (6.3-8.2); Triglycerides 57 mg/dL (<150)
[2024-07-19 11:44] LABS: LDL Cholesterol Direct 76 mg/dL
[2024-07-19 19:00] LABS: Hemoglobin A1C 5.3 % (<5.7)
== END 2024-07-19 10:45 | disposition home or self-care (01) ==
LOC: ANHLAB 10:44
PROVIDERS: PCP Family Medicine; Visit Provider Registered Nurse
DX: E78.5 Hyperlipidemia, unspecified (principal); R73.01 Impaired fasting glucose; I10 Essential (primary) hypertension
CPT/HCPCS: 36415; 80053; 80061; 83036; 85025

== ENCOUNTER 2024-11-14 11:07 | Outpatient (CLI) | payer OTHER, SELFPAY ==
--- NOTE | ~2024-11-14 | XR_ITS ---
EXAMINATION: XR knee LT 3V, 11/14/2024 11:40 CDT HISTORY: Left shoulder pain;Pain in left leg COMPARISON: No comparisons available. Findings: No acute fracture or malalignment. Moderate tricompartmental degenerative changes, small effusion Soft tissues unremarkable. Impression: No acute fracture or malalignment. Reviewed, dictated and finalized at location P. Impression: No acute fracture or malalignment.
--- NOTE | ~2024-11-14 | XR_ITS ---
EXAMINATION: XR shoulder LT min 2V, 11/14/2024 11:40 CDT HISTORY: Left shoulder pain;Pain in left leg X 7 MONTHS COMPARISON: No comparisons available. Findings: No acute fracture or malalignment. No significant degenerative changes. Soft tissues unremarkable. Impression: No acute fracture or malalignment. Reviewed, dictated and finalized at location P. Impression: No acute fracture or malalignment.
--- NOTE | ~2024-11-14 | XR_ITS ---
EXAMINATION: XR tibia fibula LT 2V, 11/14/2024 11:40 CDT HISTORY: Left shoulder pain;Pain in left leg COMPARISON: No comparisons available. Findings: No acute fracture or malalignment. No significant degenerative changes. Soft tissues unremarkable. Impression: No acute fracture or malalignment. Reviewed, dictated and finalized at location P. Impression: No acute fracture or malalignment.
[2024-11-14 11:37] LABS: Hematocrit 40.9 % (37.0-47.0); Hemoglobin 12.4 g/dL (12.0-15.0); Mean Corpuscular HGB Conc 30.3 g/dl (32-36); Mean Corpuscular Hemoglobin 24.8 pg (26-34); Mean Corpuscular Volume 82.0 fl (80-100); Platelet Count Result 242 k/mm3 (150-375); Red Blood Count 4.99 M/mm3 (4.2-5.4); White Blood Count 6.5 K/mm3 (4.5-10.0)
--- OUTSIDE RECORDS SUMMARY | 2024-11-14 11:42 | XMS_ITS | Clinical Summary ---
Author Organization [facility] Address [address] [place] [address] Care Team Providers Care Tannery Gummer Name Role Phone Unavailable Primary Care Provider [...] (1 of 3 - 19+ 3-dose series) 06/16 HPV/Cotest (21-29) 07/06/1987 CERVICAL CANCER SCREENING 1996 HPV/Cotest (30-65) 1996 PAP SMEAR 1996 BREAST CANCER SCREENING 2006 COLORECTAL SCREENING 07/06/2011 Colorectal Cancer Screening 07/06/2011 FIT-DNA Q 3 years 07/06/2011 FIT/FOBT Q 1 year 07/06/2011 Flex Sig/CT Colonography Q 5 years 07/06/2011 ZOSTER VACCINE (1 of 2) 2016 INFLUENZA VACCINE (#1) 2024
--- OUTSIDE RECORDS SUMMARY | 2024-11-14 11:42 | XMS_ITS | Encounter Summary ---
Author Organization [facility] Healthcare Address [address] [place] [address] Care Team Providers Care Automotive Tire Testing Supervisor Name Role Phone Unknown, Notinfile Primary Care Provider Unavail able Nicholas Wood MD Primary Care Provider [phone] Fortunato Henriquez NP Unavailable [phone] Encounter Details Date Type Department Care Team (Late st Contact Info) Description 04/18/2020 Telephone [facility] [address] BR[address] Young [address] Ashlyn Walden, RT Social History Tobacco Use Types Packs/Day Years Used Date Smoking Tobacco: Never Assessed Comments No Sex and Gender Information Value Date Recorded Sex Assigned at Not on file Legal Sex Female 10:09 AM CIRCUS LABORER Gender Identity Not on file Sexual [...] documented as of this encounter Care Teams [employer] Supervisor Relationship Specialty Start Date End Date Unknown, Allison PCP - General 03/28/20 04/18/20 Nicholas Wood MD PCP - General Family Medicine 04/19/20 Fortunato Henriquez NP [address] [place] [address] Nurse Practitioner Family Practice 04/06/24 documented as of this encounter
--- OUTSIDE RECORDS SUMMARY | 2024-11-14 11:42 | XMS_ITS | Clinical Summary ---
Author Organization [facility] Address [address] [place] [address] Care Team Providers Care Batch Still Operator Name Role Phone Rene Agosto MD Unavailable [phone] Marion Terry NP Primary Care Pr ovider Source Comments [facility],non-owned Affiliates and Associated Physician Practices is amultiple site organization consisting of ambulatory clinics and hospital sitesin [place], [place], [place] and [place]. This disclosure is being madepursuant to the Care Everywhere program and may not contain all information available regarding this patient. Last updated 17.[facility] Allergies Active Allergy Reactions Criticality Noted Date [...] Active vitamin D, ergocalciferol, (DRISDOL) 1.25 MG (99541 UT) capsule 1 Active furosemide (LASIX) 40 [...] 04/28/2020 Immunizations Immunization Administration Dates Next Due [facility]Place primary monoval ent 12+ yr 0.3mL Purple [...] on file Legal Sex Female 7:23 AM ROTARY ENGINE ASSEMBLER Gender Identity Not on file Sexual Orientation [...] 8:21 AM CDT Height 166.4 cm (5' 5.5) 12/10/2020 8:21 AM CDT Body Mass Index 37.5 12/10/2020 8:21 AM CDT Plan of Treatment Health Maintenance Due Date Last Done Comments COLOGUARD (AGES 45-75) - COLON CA SCREENING 1965 CT COLONOGRAPHY - COLON CA SCREENING 1965 FIT - COLON CA SCREENING 1965 FLEX SIG - COLON CA SCREENING 1965 HEPATITIS C SCREENING 06/30/1984 DTAP/TDAP/TD VACCINES (1 - Tdap) 1985 HEPATITIS B VACCINE (1 of 3 - 19+ 3-dose series) 1985 PAP SMEAR 07/06/1987 PNEUMOCOCCAL VACCINE 50+ (1 of 1 - PCV) 2016 ZOSTER VACCINE (1 of 2) 2016 MAMMOGRAM 03/04/2023 03/04/2021, 01/07/2016 SCREENING FOR DIABETES 04/01/2023 , 03/31/2020, 03/31/2020, Additional history exists DEPRESSION SCREENING 02/16/2024 COVID-19 VACCINE ( - season) 2024 04/25/2020, 04/04/2020 INFLUENZA VACCINE (#1) 2024 LIPID TESTING 04/01/2025 04/01/2020 COLON MONITORING [...] (CALCIUM TOTAL) AM Draw 04/01/2020 3:52 AM ROTARY ENGINE ASSEMBLER LIPID PROFILE STAT 04/01/2020 3:52 AM ROTARY ENGINE ASSEMBLER Sinus bradycardia HIV-1 HIV-2 ANTIBODY + HIV P24 AG PANEL STAT 03/31/2020 12:48 PM ROTARY ENGINE ASSEMBLER ENDOSCOPY, COLON, SCREENING Routine 05/24/2017 1:00 PM CDT MAMMO BILAT SCREENING Routine 01/07/2016 10:52 AM ROTARY ENGINE ASSEMBLER Encounter for screening mammogram for breast cancer from Last 3 Months or Most Recently Relevant to Health Maintenance Results * (ABNORMAL) BASIC METABOLIC PANEL (CALCIUM TOTAL) (04/01/2020 3:52 AM ROTARY ENGINE ASSEMBLER) Glucose 85 70 - 105 mg/dL 04/01/2020 5:06 AM ROTARY ENGINE ASSEMBLER [facility] Sodium 142 136 - 145 mmol/L 04/01/2020 5:06 AM ROTARY ENGINE ASSEMBLER [facility] Potassium 3.5 3.5 - 5.1 mmol/L 04/01/2020 5:06 AM ROTARY ENGINE ASSEMBLER [facility] Chloride 110(H) 98 - 107 mmol/L 04/01/2020 5:06 AM ROTARY ENGINE ASSEMBLER [facility] CO2 27 23 - 31 mmol/L 04/01/2020 5:06 AM ROTARY ENGINE ASSEMBLER [facility] Calcium 9.5 8.4 - 10.4 mg/dL 04/01/2020 5:06 AM ROTARY ENGINE ASSEMBLER [facility] Anion Gap 5(L) 8 - 18 mmol/L 04/01/2020 5:06 AM [facility] Comment:Attention clinician: Reference Range change. BUN 15 9.8 - 20.1 mg/dL 04/01/2020 5:06 AM [facility] Creatinine 0.92 0.57 - 1.11 mg/dL 04/01/2020 5:06 AM [facility] eGFR by MDRD >60 >60 mL/min/1.7 3m2 04/01/2020 5:06 AM [facility] eGFR by MDRD >60 >60 mL/min/1.7 3m2 04/01/2020 5:06 AM [facility] Blood BLOOD SPECIMEN / Unknown Venipuncture / Unknown 04/01/2020 3:52 AM ROTARY ENGINE ASSEMBLER 04/01/2020 4:30 AM [facility] Ruchi Godinez APRN-MASTER YACHT LAB - CHEMISTRY ORDERABLE S Final Result [facility] [address] [place] [address] * (ABNORMAL) LIPID PROFILE (04/01/2020 3:52 AM [facility]) Cholesterol 224(H) <200 mg/dL 04/01/2020 5:06 AM [facility] Triglycerides 85 <150 mg/dL 04/01/2020 5:06 AM [facility] HDL Cholesterol 70 >40 mg/dL 5:06 AM [facility] LDL Calculated 137(H) <130 mg/dL 04/01/2020 5:06 AM [facility] VLDL Calculated 17 <=30 mg/dL 5:06 AM [facility] Chol HDL Ratio 3.2 <4.5 04/01/2020 5:06 AM [facility] LDL/HDL Ratio 2.0 <5.0 04/01/2020 5:06 AM [facility] Blood BLOOD SPECIMEN / Unknown Venipuncture / Unknown 04/01/2020 3:52 AM ROTARY ENGINE ASSEMBLER 04/01/2020 4:30 AM ROTARY ENGINE ASSEMBLER Claudio Gutiérrez MD LAB - CHEMISTRY ORDERABLES Final Result Performing Organization Address [facility] de Phone Number [facility] [address] [place] [id number] * HIV-1 HIV-2 ANTIBODY + HIV P24 AG PANEL (03/31/2020 12:48 PM ROTARY ENGINE ASSEMBLER) Pathologist [facility] HIV1/2 Ab + P24 Ag Non Reactive Non Reactive 03/31/2020 1:39 PM ROTARY ENGINE ASSEMBLER [facility] Blood BLOOD SPECIMEN / Unknown Venipuncture / Unknown 03/31/2020 12:48 PM ROTARY ENGINE ASSEMBLER 03/31/2020 1:00 PM ROTARY ENGINE ASSEMBLER Narrative [facility] - 03/31/2020 1:39 PM ROTARY ENGINE ASSEMBLER No Laboratory evidence of HIV infection. Dennis Hargrove MD LAB - CHEMISTRY ORDERABLES Belen l Result Performing Organization Address [facility] de Phone Number [facility] [address] [place] [phone] * ENDOSCOPY, COLON, SCREENING (05/24/2017 1:00 PM CDT) [facility] Report Endoscopy POC _ Patient Name: Dejah Obrien Procedure Date: 05/24/2017 1:00 PM Date of : 1965 Admit Type: Outpatient Age: 51 Gender: Female Attending MD: Silas Potts MD _ Procedure: Colonoscopy Indications: Screening for colorectal malignant neoplasm Providers: Silas Potts MD (Doctor), Meghana Adams RN, Es Ocampo, Staff Research Scientist Referring MD: Doc Faith MD (Referring MD) [...] pathology results. Procedure Code(s): --- Professional --- 42988, Colonoscopy, flexible; with biopsy, single or multiple --- Technical --- 84571, Colonoscopy, flexible; with biopsy, single or multiple [...] or abscess without bleeding CPT copyright 2015 [employer]. All rights reserved. The codes documented in this report are preliminary and upon boat loader review may be revised to meet current compliance requirements. Silas Potts MD 05/24/2017 1:28:42 PM This report has been signed electronically. Number of Addenda: 0 Note Initiated On: 05/24/2017 1:00 PM [facility] 05/24/2017 1:00 PM CDT us Silas Potts MD GI PROCEDURE ORDERABLES Edited R esult - Final [facility] * MAMMO SCREENING DIGITAL IMAGE BILAT G0202 (01/07/2016 10:52 AM ROTARY ENGINE ASSEMBLER) Anatomical Region Laterality Modality Breast Bilateral Mammography 01/22/2016 11:3 0 AM ROTARY ENGINE ASSEMBLER Addenda Addendum by Noemí Martin MD on 02/24/2016 5:22 PM ROTARY ENGINE ASSEMBLER Previous mammograms from [facility] on 02/05/2015, 06/09/2012, 05/11/2011, and 04/09/2010 are [...] in one year. Impressions 01/22/2016 12:13 PM ROTARY ENGINE ASSEMBLER Questioned mass in the upper outer right breast. No evidence of malignancy in the left breast. ASSESSMENT: BIRADS Category 0: Incomplete - Needs additional imaging evaluation. RECOMMENDATION: Right breast targeted ultrasound and possible mammography. Thank you for allowing us to participate in the care of your patient. [facility] utilizes [facility] as a reminder system to notify patients of their next recommended mammogram. Narrative 01/22/2016 12:13 PM ROTARY ENGINE ASSEMBLER EXAMINATION: Digital screening mammogram on 01/07/2016. Computer assisted detection was utilized. PRIOR: Attempt was made to retrieve prior images from [facility]; however, none were available. 04/09/2010 diagnostic right [...] was made to retrieve prior images from [facility]; however, none were available. 04/09/2010 diagnostic right [...] participate in the care of your patient. [facility] utilizes [facility] as a reminder system to notify patients of their next recommended mammogram. us Doc Faith Jr., MD MAMMO ORDERABLES Edite d Result - Final from Last 3 Months or Most Recently Relevant to Health Maintenance Insurance [facility] SELF PAY NO INSURANCE Member Subscriber Plan / Payer (Ef fective for All Dates) Name:Dejah Valdes Member ID:Not on file Relation to Subscriber:Not on file Name:DEJAH VALDES Subscriber ID:Not on file (Home) Address: [address] [place] [address] Payer ID:Not on file Group ID:Not on file Type:Self Pay Address: [place], [place] CIG[employer] CARE CARE [facility] Advance Directives * Full Code (Latest Code Status on File) Date Activated Date Inactivated Comments 03/31/2020 1:37 PM 04/01/2020 5:37 PM Care Teams Batch Still Operator Relationship Specialty Start Date End Date Marion Terry DYEING MACHINE TENDER [address] [place] [id number] PCP - General 09/12/21 Rene Agosto MD Child Daycare Worker Cardiology 12/04/14
--- OUTSIDE RECORDS SUMMARY | 2024-11-14 11:42 | XMS_ITS | Encounter Summary ---
Author Organization [facility] Address [address] [place] [address] Care Team Providers Care Stonework Tracer Name Role Phone Rene Agosto MD Unavailable [phone] Marion Terry NP Primary Care Pr ovider Encounter Details Date Type Department Care Team (Late st Contact Info) Description 09/12/2021 Lab Requisition [facility] D[facility] [address] [place] [phone] [place] [address] [address] Social History Tobacco Use Types Packs/Day Years Used Date Smoking Tobacco: Never Smokeless Tobacco: Never Alcohol Use Standard Drinks/Week Comments Never 0 (1 standard drink = 0.6 oz pur e alcohol) wine Comments No Sex and Gender Information Value Date Recorded Sex Assigned at Not on file Legal Sex Female 7:23 AM PORTFOLIO DIRECTOR Gender Identity Not on file Sexual Orientation Not on file documented as of this encounter Functional Status * Is person deaf or have serious hearing difficulty? Answer Date of Assessment Author No 03/31/2020 6:26 PM PORTFOLIO DIRECTOR Anne-Marie Wagoner RN * Is person blind or have serious difficulty seeing? Answer Date of Assessment Author No 03/31/2020 6:26 PM Anne-Marei Osborne RN * Does person have serious [...] AM CDT) Case Report Dermatopathology Report Case: [id number] Authorizing Provider: Gerson Walsh MD Collected: 09/11/2021 12:00 AM Ordering Location: [facility] D[facility] Lab Received: 09/12/2021 11:53 AM Pathologist: Tash Garcia MD Specimen: Skin, right frontal scalp 2 1:40 PM CDT DERMATOPATHOLOGY LABORATORY Final Diagnosis Specimen A. 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 The specimen consists of a punch biopsy measuring [id number]. Jar 0. 2 1:40 PM CDT DERMATOPATHOLOGY [...] characteristic determined by the Dermatopathology Laboratory at [facility], directed by Dr. Saul Prajapati. These tests need not be, and therefore are not, approved by the [place] Food and Drug Administration. The tests are used for clinical purposes. Billing Codes Specimen Charges Stain Charges 00821 1 2 1:40 PM CDT DERMATOPATHOLOGY LABORATORY Embedded Images 2 1:40 PM CDT DERMATOPATHOLOGY LABORATORY Pathology/Cytolog y TISSUE SPECIMEN FROM SKIN / Unknown 09/11/2021 09/12/2021 11:53 AM CDT Gerson Walsh MD LAB - PATHOLOGY/CYTOLOGY O RDERABLES Final Result DERMATOPATHOLOGY LABORATORY [facility] - Department of Dermatology [place] [address] [facility], [address] [place], [place] [address] [phone] documented in this encounter Visit Diagnoses Not on filedocumented in this encounter Care Teams Stonework Tracer Relationship Specialty Start Date End Date Marion Terry NP [address] [place] [phone] PCP - General 09/12/21 Rene Agosto MD Rouge Sifter Cardiology 12/04/14 documented as of this encounter
--- OUTSIDE RECORDS SUMMARY | 2024-11-14 11:42 | XMS_ITS | Clinical Summary ---
Author Organization [facility] rofessional Office [facility] Address [address] [place] [phone] Care Team Providers Care Associate Sales Representative Name Role Phone Doc Faith MD Primary Care Provider Allergies Active Allergy Reactions Criticality Noted Date [...] 2:48 PM CDT Height 167.6 cm (5' 6) 08/07/2015 2:48 PM CDT Body Mass Index [...] of 2) 2016 INFLUENZA VACCINE (#1) 2024 Insurance [facility] [employer] PPO [id number] Care Teams Associate Sales Representative Relationship Specialty Start Date End Date Doc Faith MD [address] [place] [phone] PCP - General Internal Medicine 08/07/15
--- OUTSIDE RECORDS SUMMARY | 2024-11-14 11:42 | XMS_ITS | Clinical Summary ---
Author Organization [facility] Address [address] [facility] [place] [address] Care Team Providers Care Sr Vice President Name Role Phone Nicholas Wood MD Primary Care Provider [phone] Fortunato Henriquez NP Unavailable [phone] Allergies Active Allergy Reactions Criticality Noted Date [...] 7 days Wednesdays at 1930 4 Active acetaminophen (TYLENOL) 500 mg tablet Take 2 tablets (1,000 mg total) by mouth every 6 (six) hours as needed for pain 30 tablet 5 Active ibuprofen (ADVIL,MOTRIN) 600 mg tablet Take 1 tablet (600 mg total) by mouth every 6 (six) hours as needed for pain 30 tablet 5 Active lidocaine (ASPERCREME) 4 % adhesive patch,medicated Place 1 patch on the skin daily for 12 hours 20 patch 5 Active methocarbamoL (ROBAXIN) 500 mg tablet Take 1 tablet (500 mg total) by mouth 2 (two) times a day 20 tablet 5 Active Active Problems Problem Noted Date Diagnosed Date Chest pain, unspecified type 09/13/2023 Encounters Date Type Department Care Team Description 11/06/2024 Telephone [facility] Gastroenterology at [address] [address] Gwen Jordan DNP 09/27/2024 3:58 AM CDT - 09/27/2024 6:06 AM CDT Emergency [address] [address] Checo Lynch MD Dark stools (Primary Dx); Vertigo Discharge Disposition: Discharge to home or self care from Last 3 Months Surgical History Surgery Date Site/Laterality Comments IR FINE NEEDLE ASPIRATION W IMAGE GUIDANCE 03/11/2015 N/A Medical History Medical History Date Comments Hypertension Bradycardia Social History Tobacco Use Types Packs/Day Years Used Date Smoking Tobacco: Never Smokeless Tobacco: Never [facility] Utilities Answer Date Recorded In the past 12 months has th e electric, gas, oil, or water company threatened to shut off services in your home? No 09/15/2023 Social Connection and Isolation Panel Answer Date Recorded In a typical week, how many times do you talk on the phone with family, friends, or neighbors? More than three times a week 09/15/2023 How often do you get togethe r with friends or relatives? More than three times a week 09/15/2023 How often do you attend chur ch or lutheran services? More than 4 times per year 09/15/2023 Do you belong to any clubs o r organizations such as synagogue groups, unions, fraternal or athletic groups, or [...] medical appointments or from getting medications? No 07/3 02/2023 In the past 12 months, has l [...] any time in the past [address] [facility], were you homeless or living in a [facility] (including now)? No 09/15/2023 Personal Safety Answer Date Recorded Have you ever been in or are you currently in a harmful physical or emotional relationship or is someone making you feel afraid or unsafe? 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 Gender Identity Not on file Sexual Orientation Not on file Obstetrics History Last Filed Vital Signs Vital Sign Reading Time Taken Comments Blood Pressure 123/76 09/27/2024 5:30 AM CDT Pulse 66 09/27/2024 5:30 AM CDT Temperature 36.6 C (97.9 F) 09/27/2024 1:16 AM CDT Respiratory Rate 15 09/27/2024 5:30 AM CDT Oxygen Saturation 97% 09/27/2024 5:30 AM CDT Inhaled Oxygen Concentration - - Weight 104.3 kg (230 lb) 09/27/2024 1:24 AM CDT Height 167.6 cm (5' 5.98) 09/16/2023 3:48 PM CD T Body Mass Index 37.14 09/16/2023 3:48 PM CDT Plan of Treatment Health Maintenance Due Date Last Done Comments Cervical Cancer Screening 1966 Colon Cancer Screening-Colonoscopy 1966 Depression Screening 1966 Hepatitis C Screening 1966 DTaP/Tdap/Td Vaccine (1 - Tdap) 1977 Hepatitis B Screening 1984 Regular Well Visit/Exam 18-64 1984 Zoster Vaccine (1 of 2) 2016 Breast Cancer Screening-Mammogram 01/06/2017 01/07/2016, 06/09/2012 Covid-19 Vaccine ( season) 2024 12/13/2022, 04/25/2020, 04/04/2020 Influenza Vaccine (#1) 2024 , 12/24/2021, 12/02/2020, Additional history exists Pneumococcal vaccine <65 Aged Out No longer eligible based on patient's age to complete this topic Medical Devices Implanted 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 Device 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 Shelf Expiration Date Model / Serial / Lot Clips Bilateral: Breast Procedures Procedure Name Priority Date/Time Associated Diagnosis Comments CTA ABDOMEN PELVIS W WO CONTRAST ED 09/27/2024 4:48 AM CDT PROTIME-INR STAT 09/27/2024 4:36 AM CDT APTT STAT 09/27/2024 4:36 AM CDT B ABO / RH CONFIRMATION TESTING STAT 09/27/2024 4:36 AM CDT EGFR STAT 09/27/2024 1:37 AM CDT URINALYSIS, MICROSCOPIC ONLY STAT 09/27/2024 1:37 AM CDT DIFFERENTIAL AUTO STAT 09/27/2024 1:3 7 AM CDT ABO/RH STAT 09/27/2024 1:37 AM CDT COMPREHENSIVE METABOLIC PANEL STAT 09/27/2024 1:37 AM CDT CBC WITH AUTO DIFFERENTIAL STAT 09/27/2024 1:37 AM CDT URINALYSIS AND REFLEX TO MICROSCOPIC AND CULTURE STAT 09/27/2024 1:37 AM CDT ECG 12-LEAD STAT 09/27/2024 1:34 AM CDT SCREENING MAMMOGRAM Routine 06/09/2012 3 :23 PM CDT from Last 3 Months or Most Recently Relevant to Health Maintenance Results * CTA Abdomen Pelvis (09/27/2024 4:48 AM CDT) Anatomical Region Laterality Modality Body N/A Computed Tomogra phy 09/27/2024 5:01 AM CDT Narrative 09/27/2024 5:12 AM CDT EXAM DESCRIPTION: CTA ABDOMEN PELVIS REASON FOR STUDY: Lower GI bleed Dejah Guzman is a very pleasant 59 y.o. female with PMHx of HTN and renal cell carcinoma with partial nephrectomy presenting to the ED c/o dark red stools onset yesterday. Pt states that her first bowel movement yesterday was a very pale color and then she had 3x episodes of maroon colored bowel movements. She also notes that stool was slimy. She states that today she had 1x bowel movement that looked much better than yesterday. She is endorsing gas in ABD and also a burning sensation in her ABD TECHNIQUE: CTA scan of the abdomen and pelvis performed without and with intravenous and without oral contrast using helical scanning technique with dynamic intravenous contrast injection. Precontrast, arterial, and portal venous phase images of the abdomen and pelvis were acquired. Images reviewed with lung, soft tissue and bone windows. Reconstructed coronal and sagittal MPR images reviewed. All images stored on PACS. 3D MIP images rendered on scanning unit and reviewed at time of interpretation. Automated exposure control was used as a dose optimization technique for this examination. CONTRAST TYPE/DOSE: 100mL of IOVERSOL 350 MG IODINE/ML INTRAVENOUS SYRINGE injected via intravenous COMPARISON: 04/19/2020 CT abdomen pelvis FINDINGS: VASCULATURE: No dissection, aneurysm, intramural hematoma, rupture, or penetrating atherosclerotic ulcer. No large vessel occlusion. CELIAC TRUNK: No flow limiting stenosis, dissection, or aneurysm. SUPERIOR MESENTERIC ARTERY: No flow limiting stenosis, dissection, or aneurysm. RIGHT RENAL ARTERY: No flow limiting stenosis, dissection, or aneurysm. LEFT RENAL ARTERY: No flow limiting stenosis, dissection, or aneurysm. INFERIOR MESENTERIC ARTERY: No flow limiting stenosis, dissection, or aneurysm. AORTA: No flow limiting stenosis, dissection, or aneurysm. ILIAC ARTERIES: No flow limiting stenosis, dissection, or aneurysm. LOWER CHEST: Band like densities lingula and right lower lobe are similar to slightly progressed from prior exam may represent progressive atelectasis or scarring. LIVER: Normal size. Multiple hypodensities most suggestive of cysts generally similar to previous. GALLBLADDER: Surgically absent with clips in place. BILE DUCTS: No intrahepatic or extrahepatic ductal dilatation. SPLEEN: Normal size. 1 cm hypodensity likely related to cyst or hemangioma. PANCREAS: No identified cystic or solid masses. No significant calcifications. No adjacent inflammation or peripancreatic fluid collections. Pancreatic duct not dilated. ADRENALS: Left adrenal 2.3 cm nodule unchanged from 2020 suggesting benign process. KIDNEYS/URINARY TRACT: No identified significant cystic or solid masses. No stones. No hydronephrosis or hydroureter. Symmetric enhancement. Normal bladder. GI: No dilated bowel loops. No obvious wall thickening. Normal appendix. No significant diverticular disease. PERITONEUM: No ascites or free air. RETROPERITONEUM: Nonenlarged lymph nodes along the small bowel mesentery periaortic spaces generally similar to previous. REPRODUCTIVE: No significant abnormality. MUSCULOSKELETAL: No significant abnormality. OTHER: No other abnormality. IMPRESSION: 1. No acute finding. 2. No acute vascular abnormality. 3. Multiple probable hepatic cysts and splenic cyst or hemangioma unchanged from previous. 4. Left adrenal 2.3 cm nodule unchanged from 2020 suggesting benign process. 5. Nonenlarged lymph nodes along the small bowel mesentery and periaortic spaces generally similar to previous. 6. Band like densities lingula and right lower lobe are similar to slightly progressed from prior exam may represent progressive atelectasis or scarring. THIS IS AN ELECTRONICALLY VERIFIED FINAL REPORT 09/27/2024 5:12 AM - Electronically signed by Silvino Fisher M.D. T: Report ID: [id number] Reading Location: [id number] Procedure Note Silvino Fisher MD - 09/27/2024 EXAM DESCRIPTION: CTA ABDOMEN PELVIS REASON FOR STUDY: Lower GI bleed Dejah Guzman is a very pleasant 59 y.o. female with PMHx of HTNand renal cell carcinoma with partial nephrectomy presenting to the ED c/odark red stools onset yesterday. Pt states that her first bowel movementyesterday was a very pale color and then she had 3x episodes of maroon coloredbowel movements. She also notes that stool was slimy. She states that todayshe had 1x bowel movement that looked much better than yesterday. She isendorsing gas in ABD and also a burning sensation in her ABD TECHNIQUE: CTA scan of the abdomen and pelvis performed without and with intravenous and without oral contrast using helical scanning techniquewith dynamic intravenous contrast injection. Precontrast, arterial, and portal venous phase images of the abdomen and pelvis were acquired. Images reviewed with lung, soft tissue and bone windows. Reconstructed coronaland sagittal MPR images reviewed. All images stored on PACS. 3D MIP images rendered on scanning unit and reviewed at time of interpretation.Automated exposure control was used as a dose optimization technique for this examination. CONTRAST TYPE/DOSE: 100mL of IOVERSOL 350 MG IODINE/ML INTRAVENOUSSYRINGE injected via intravenous COMPARISON: 04/19/2020 CT abdomen pelvis FINDINGS: VASCULATURE: No dissection, aneurysm, intramural hematoma, rupture, or penetrating atherosclerotic ulcer. No large vesselocclusion. CELIAC TRUNK: No flow limiting stenosis, dissection, or aneurysm. SUPERIOR MESENTERIC ARTERY: No flow limiting stenosis, dissection, or aneurysm. RIGHT RENAL ARTERY: No flow limiting stenosis, dissection, or aneurysm. LEFT RENAL ARTERY: No flow limiting stenosis, dissection, or aneurysm. INFERIOR MESENTERIC ARTERY: No flow limiting stenosis, dissection, or aneurysm. AORTA: No flow limiting stenosis, dissection, or aneurysm. ILIAC ARTERIES: No flow limiting stenosis, dissection, or aneurysm. LOWER CHEST: Band like densities lingula and right lower lobe aresimilar to slightly progressed from prior exam may represent progressive atelectasisor scarring. LIVER: Normal size. Multiple hypodensities most suggestive of cysts generally similar to previous. GALLBLADDER: Surgically absent with clips in place. BILE DUCTS: No intrahepatic or extrahepatic ductal dilatation. SPLEEN: Normal size. 1 cm hypodensity likely related to cyst orhemangioma. PANCREAS: No identified cystic or solid masses. No significant calcifications. No adjacent inflammation or peripancreatic fluidcollections. Pancreatic duct not dilated. ADRENALS: Left adrenal 2.3 cm nodule unchanged from 2020 suggestingbenign process. KIDNEYS/URINARY TRACT: No identified significant cystic or solid masses.No stones. No hydronephrosis or hydroureter. Symmetric enhancement. Normal bladder. GI: No dilated bowel loops. No obvious wall thickening. Normalappendix. No significant diverticular disease. PERITONEUM: No ascites or free air. RETROPERITONEUM: Nonenlarged lymph nodes along the small bowel mesentery periaortic spaces generally similar to previous. REPRODUCTIVE: No significant abnormality. MUSCULOSKELETAL: No significant abnormality. OTHER: No other abnormality. IMPRESSION: 1. No acute finding. 2. No acute vascular abnormality. 3. Multiple probable hepatic cysts and splenic cyst or hemangiomaunchanged from previous. 4. Left adrenal 2.3 cm nodule unchanged from 2020 suggesting benignprocess. 5. Nonenlarged lymph nodes along the small bowel mesentery andperiaortic spaces generally similar to previous. 6. Band like densities lingula and right lower lobe are similar toslightly progressed from prior exam may represent progressive atelectasis orscarring. THIS IS AN ELECTRONICALLY VERIFIED FINAL REPORT 09/27/2024 5:12 AM - Electronically signed by Silvino Fisher M.D. RB T: Report ID: [id number] Reading Location: [place] [address] Checo Lynch MD IMG CT PROCEDURES Final Result * ABO / Rh Confirmation Testing (09/27/2024 4:36 AM CDT) ABO/Rh Confirmation O Positive [facility] Blood 09/27/2024 4:36 AM CDT 09/27/2024 4:41 AM CDT Checo Lynch MD LAB BLOOD ORDERABLES Final Resul t [facility] [address] [facility] Department of Laboratories [place], [place] [id number] [facility] * aPTT (09/27/2024 4:36 AM CDT) aPTT 31 22 - 37 sec Comment: Interpretive data aPTT test has not been evaluated for monitoring heparin therapy. The anti-Xa is the preferred test. Current interpretive data was last revised on 2019. Blood 09/27/2024 4:36 AM CDT 09/27/2024 4:41 AM CDT us Checo Lynch MD LAB BLOOD ORDERABLES Final Resul t Performing Organization Address [facility] de Phone Number STEPH[address] [employer] [place] [address] * Protime-INR (09/27/2024 4:36 AM CDT) PT 12.80 12.00 - 14.60 sec INR 0.95 0.90 - 1.20 [facility] Comment: Interpretive data Oral anticoagulant therapeutic ranges: Venous thromboembolism prophylaxis or treatment: 2.0-3.0 CARDIOLOGY Standard range: 2.0-3.0 High-intensity range: 2.5-3.5 Refer to indication-specific guidelines for appropriate target ranges for prosthetic heart valve replacement. Current interpretive data was last revised on 2019. Blood 09/27/2024 4:36 AM CDT 09/27/2024 4:41 AM CDT Checo Lynch MD LAB BLOOD ORDERABLES Final Resul t Performing Organization Address [facility] de Phone Number STEPHIE[address] [employer] [place] [address] * (ABNORMAL) eGFR (09/27/2024 1:37 AM CDT) eGFR 48(L) >=60 mL/min/1. 73 m2 Comment: Interpretive Data Reference Interval Normal >/= 90 mL/min/1.73m2 Mildly decreased* 60 - 89 mL/min/1.73m2 Mildly to moderately decreased 45 - 59 mL/min/1.73m2 Moderately to severely decreased 30 - 44 mL/min/1.73m2 Severely decreased 15 - 29 mL/min/1.73m2 Kidney Failure < 15 mL/min/1.73m2 *Relative to young adult level Estimated glomerular filtration rate is determined by the 2020 CKD-EPI equation recommended by the National Kidney Foundation (A Unifying Approach to GFR Estimation: Recommendations of the NKF-ASK Task Force on Reassessing the Inclusion of Race in Diagnosing Kidney Disease, JASN 2020). The CKD-EPI equation should not be used for patients with unstable renal function and has not been validated in children and those over 70. Current interpretive data was last reviewed 2020. Blood 09/27/2024 1:37 AM CDT 09/27/2024 1:41 AM CDT us Checo Lynch MD LAB BLOOD ORDERABLES Final Resul t [facility] [address] [facility] Department [place] [address] * (ABNORMAL) Differential, auto (09/27/2024 1:37 AM CDT) Pathologist [facility] Neutrophil abs 4.97 1.50 - 6.50 K/cumm Imm gran abs 0.02 0.00 - 0.10 K/cumm [facility] Lymphocyte abs 2.51 0.80 - 3.30 K/cumm [facility] Monocyte abs 0.99(H) 0.20 - 0.80 K/cumm [facility] Eosinophil abs 0.18 0.00 - 0.50 K/cumm [facility] Basophil abs 0.06 0.00 - 0.10 K/cumm [facility] Neutrophil pct 56.9 % [facility] Comment: Interpretive Data Percent cell count reference ranges are not reported, since discordance with absolute values may lead to misinterpretation of CBC data. Current Interpretive Data was last revised on 2017. Imm gran pct 0.2 % [facility] Comment: Interpretive Data Percent cell count reference ranges are not reported, since discordance with absolute values may lead to misinterpretation of CBC data. Current Interpretive Data was last revised on 2017. Lymphocyte pct 28.8 % [facility] Comment: Interpretive Data Percent cell count reference ranges are not reported, since discordance with absolute values may lead to misinterpretation of CBC data. Current Interpretive Data was last revised on 2017. Monocyte pct 11.3 % [facility] Comment: Interpretive Data Percent cell count reference ranges are not reported, since discordance with absolute values may lead to misinterpretation of CBC data. Current Interpretive Data was last revised on 2017. Eosinophil pct 2.1 % [facility] Comment: Interpretive Data Percent cell count reference ranges are not reported, since discordance with absolute values may lead to misinterpretation of CBC data. Current Interpretive Data was last revised on 2017. Basophil pct 0.7 % [facility] Comment: Interpretive Data Percent cell count reference ranges are not reported, since discordance with absolute values may lead to misinterpretation of CBC data. Current Interpretive Data was last revised on 2017. Blood 09/27/2024 1:37 AM CDT 09/27/2024 1:41 AM CDT Checo Lynch MD LAB BLOOD ORDERABLES Final Resul t [facility] [address] [facility] Department [place] [address] * (ABNORMAL) Urinalysis reflex to microscopic and culture Urine (09/27/2024 1:37 AM CDT) Color, ur Yellow Yellow Clarity, ur Clear Clear [facility] Specific gravity, ur 1.028 1.003 - 1.030 [facility] pH, urine 5.5 [facility] Comment: Interpretive Data U rine pH is affected by diet, medications, systemic acid-base disturbances, and renal tubular function. pH may affect urinary stone formation. For example, urine pH below 6.0 may help reduce the tendency for calcium phosphate stones and pH greater than 6.0 may reduce the tendency for uric acid stone formation. Source: [facility] Current Interpretive Data was last revised on 2017 Protein, ur ql Negative Negative [facility] Glucose, ur ql Negative Negative [facility] Ketones, ur Negative Negative [facility] Bilirubin, ur Negative Negative [facility] Blood, ur 2+(A) Negative [facility] Urobilinogen, ur <2.0 <2.0 mg/dL [facility] Nitrite, ur Negative Negative [facility] Leukocyte esterase, ur Negative Negative [facility] UA reflex comment Reflex to microscopic UA will be performed. [facility] Urine 09/27/2024 1:37 AM CDT 09/27/2024 1:41 AM CDT Checo Lynch MD LAB MICROBIOLOGY - GENERAL ORDER JAY Final Result Performing Organization Address [facility] de Phone Number [address] [address] * (ABNORMAL) CBC with auto differential (09/27/2024 1:37 AM CDT) Pathologist [facility] WBC 8.73 3.80 - 9.90 K/cumm Hgb 12.7 11.9 - 15.5 g/dL [facility] Hct 42.2 35.6 - 45.5 % [facility] Plt 241 150 - 400 K/cumm [facility] MPV 10.3 9.1 - 12.3 fL [facility] RBC 5.10 3.90 - 5.20 M/cumm [facility] MCV 82.7 81.3 - 96.4 fL [facility] MCH 24.9(L) 27.1 - 33.3 pg [facility] MCHC 30.1(L) 32.3 - 35.7 g/dL [facility] RDW CV 15.1(H) 11.1 - 14.9 % [facility] RDW SD 45.9 35.7 - 48.1 fL [facility] NRBC abs 0.00 0.00 - 0.01 K/cumm [facility] Blood 09/27/2024 1:37 AM CDT 09/27/2024 1:41 AM CDT Checo Lynch MD LAB BLOOD ORDERABLES Final Resul t Performing Organization Address [facility] Co de Phone Number [address] [address] * ABO/Rh (09/27/2024 1:37 AM CDT) [facility] ABO/Rh O Positive Blood 09/27/2024 1:37 AM CDT 09/27/2024 1:41 AM CDT Checo Lynch MD LAB BLOOD BANK TEST ORDERABLES F inal Result Performing Organization Address [facility] Co de Phone Number [address] Department [place] [address] * (ABNORMAL) Urinalysis, microscopic only (09/27/2024 1:37 AM CDT) WBC, ur 0-5 0 - 5 /HPF RBC, ur 11-20(A) 0 - 2 /HPF [facility] Epithelial cells, squamous, ur 1-5 0 - 5 /HPF [facility] Bacteria, ur Trace(A) [facility] Culture Reflex Comment Reflex conditions for urine culture (WBC >10) not met. [facility] Urine 09/27/2024 1:37 AM CDT 09/27/2024 1:41 AM CDT us Checo Lynch MD LAB URINE ORDERABLES Final Resul t Performing Organization Address City/[facility] Co de Phone Number [address] Department [place] [address] * (ABNORMAL) Comprehensive metabolic panel (09/27/2024 1:37 AM CDT) Pathologist [facility] Sodium 142 135 - 145 mmol/L Potassium, pl 3.9 3.3 - 4.9 mmol/L [facility] Chloride 108 97 - 110 mmol/L [facility] CO2 23 22 - 32 mmol/L [facility] Anion gap 11 2 - 15 mmol/L [facility] BUN 23 6 - 25 mg/dL [facility] Creatinine 1.30(H) 0.60 - 1.10 mg/dL [facility] Glucose 106 70 - 199 mg/dL [facility] Comment: Interpretive Data Fasting glucose >/= 126 mg/dl is diagnostic for diabetes. Fasting is defined as no caloric intake for at least 8 hours. Fasting glucose between 100 mg/dl to 125 mg/dl is diagnostic of prediabetes. In a patient with classic symptoms of hyperglycemia or hyperglycemic crisis, a random glucose >/= 200 mg/dl is diagnostic for diabetes. In the absence of unequivocal hyperglycemia, results should be confirmed by repeat testing. The classification and Diagnosis of Diabetes Diabetes Care 2021; 46: S19-S40. Current interpretive data was last revised 2022. Calcium 9.6 8.5 - 10.3 mg/dL [facility] Bilirubin, total 0.3 0.1 - 1.2 mg/dL [facility] Protein, pl 7.2 6.5 - 8.5 g/dL [facility] Albumin 4.1 3.5 - 5.0 g/dL [facility] Alk phos 130 40 - 130 Units/L [facility] ALT 41 7 - 45 Units/L [facility] AST 26 10 - 45 Units/L [facility] Blood 09/27/2024 1:37 AM CDT 09/27/2024 1:41 AM CDT us Checo Lynch MD LAB BLOOD ORDERABLES Final Resul t [facility] [address] [facility] Department [place] [address] * ECG 12 lead (09/27/2024 1:34 AM CDT) Pathologist [facility] Ventricular Rate EKG/Min 79 BPM [facility] Atrial Rate 79 BPM [facility] [place]-Interval (MSEC) 146 ms [facility] QRS-Interval (MSEC) 72 ms [facility] QT-Interval (MSEC) 384 ms [facility] QTc 440 ms [facility] P Francis 36 degrees [facility] R Francis 22 degrees [facility] T Francis 31 degrees [facility] Diagnosis Normal sinus rhythm Possible Left atrial enlargement Borderline ECG When compared with ECG of 29-JUN-2021 09:37, No significant change was found Confirmed by SULY RING M.D. ([id number]) on 09/28/2024 5:39:10 PM [facility] 09/27/2024 1:34 AM CDT 09/28/2024 5:39 PM CDT us Checo Lynch MD ECG ORDERABLES Final Result Performing Organization Address City/[facility] Co de Phone Number [facility] * Screening Mammogram (06/09/2012 3:23 PM CDT) Anatomical Region Laterality Modality Breast N/A Mammography 06/09/2012 3:23 PM CDT Narrative 06/10/2012 1:15 PM CDT FRANCOIS BROWNE M.D. FINAL REPORT ACC# Date Time Exam [id number] Jun 09, 2012 15:23:00 [facility] [address] Screening Mamm Bilat Technologist(s): Mesha Crisostomo; ; EXAMINATION: Mammogram Findings: A Full-Field Digital Screening Mammogram was performed. Views obtained: bilateral craniocaudal; bilateral mediolateral oblique. Computer Aided Detection was performed with thesixtyone.3 version 9.3. The present examination has been compared to prior imaging studies performed at [facility] on 05/11/2011 and 07/31/2009. The breasts are heterogeneously dense which could obscure a lesion on mammography. There are calcifications in the right breast. Finding remains unchanged from the prior study. There is no suspicious abnormality in the left breast. IMPRESSION: Calcifications in the right breast are benign. Annual screening mammography is recommended. OVERALL FINAL ASSESSMENT: BI-RADS CATEGORY 2: Benign. Requested By: WILLIAM ARELLANO CABLE SPLICER Dictated By: FRANCOIS BROWNE M.D. on Jun 10 2012 1:15P This document has been electronically signed by: FRANCOIS BROWNE M.D. on Jun 10 2012 1:14P Procedure Note Provider, MD Paulette - 06/07/2016 FRANCOIS BROWNE M.D. FINAL REPORT ACC# Date Time Exam [id number] Jun 09, 2012 15:23:00 [facility] [address] Screening Mamm Bilat Technologist(s): Mesha Crisostomo; ; EXAMINATION: Mammogram Findings: A Full-Field Digital Screening Mammogram was performed. Views obtained: bilateral craniocaudal; bilateral mediolateral oblique. Computer Aided Detection was performed with Trulia 1.3 version 9.3. The present examination has been compared to prior imaging studies performed at [facility] on 05/11/2011 and 07/31/2009. The breasts are heterogeneously dense which could obscure a lesion on mammography. There are calcifications in the right breast. Finding remains unchanged from the prior study. There is no suspicious abnormality in the left breast. IMPRESSION: Calcifications in the right breast are benign. Annual screening mammography is recommended. OVERALL FINAL ASSESSMENT: BI-RADS CATEGORY 2: Benign. Requested By: WILLIAM ARELLANO CABLE SPLICER Dictated By: FRANCOIS BROWNE M.D. on Jun 10 2012 1:15P This document has been electronically signed by: FRANCOIS BROWNE M.D. on Jun 10 2012 1:14P Historical Provider MD [facility] MAMMO PROCEDURES Belen l Result from Last 3 Months or Most Recently Relevant to Health Maintenance Insurance [facility] BENEFIT PLAN [facility] BENEFIT PLAN WORKERS COMPENSATION GENERIC ional [place] [id number] [place] [id number] DEPARTMENT OF [employer]ef[employer] Advance Directives For more information, please contact: [phone] * Full Code (Latest Code Status on File) Date Activated Date Inactivated Comments 09/13/2023 3:05 PM 09/16/2023 8:32 PM Care Teams Sr Vice President Relationship Specialty Start Date End Date Nicholas Wood MD PCP - General Family Medicine 04/19/20 Fortunato Henriquez NP [address] [place] [address] Nurse Practitioner Family Practice 04/06/24
[2024-11-14 11:53] LABS: Hemoglobin A1C 5.6 % (<5.7)
[2024-11-14 11:58] LABS: Alanine Aminotransferase 23 U/L (6-35); Albumin Level 4.2 g/dL (3.5-5.1); Alkaline Phosphatase 128 U/L (38-126); Anion Gap 5 mmol/L (4-12); Aspartate Amino Transferase 26 U/L (14-36); Bilirubin,Total 0.4 mg/dL (0.2-1.3); Blood Urea Nitrogen 14 mg/dL (7-17); Calcium 9.5 mg/dL (8.4-10.2); Carbon Dioxide 27 mmol/L (22-30); Chloride 108 mmol/L (98-107); Cholesterol 200 mg/dL (0-200); Estimated Glomerular Filt Rate > 60; Glucose 91 mg/dL (65-110); HDL Direct 77 mg/dL; Magnesium 2.0 mg/dL (1.6-2.3); Potassium 3.8 mmol/L (3.4-5.0); Sodium 140 mmol/L (137-145); Total Protein 7.5 g/dL (6.3-8.2); Triglycerides 100 mg/dL (<150)
[2024-11-14 12:32] LABS: Thyroid Stimulating Hormone Reflex 1.410 uIU/mL (0.465-4.68)
[2024-11-14 13:09] LABS: Vitamin B12 845.0 pg/mL (239-931)
== END 2024-11-14 11:08 | disposition home or self-care (01) ==
PROVIDERS: PCP Family Medicine; Referring Provider Nurse Practitioner Family; Visit Provider Nurse Practitioner Family
DX: M79.605 Pain in left leg (principal); M25.512 Pain in left shoulder; E78.5 Hyperlipidemia, unspecified; D64.9 Anemia, unspecified; E87.6 Hypokalemia; R00.2 Palpitations; R73.01 Impaired fasting glucose; E03.9 Hypothyroidism, unspecified; E55.9 Vitamin D deficiency, unspecified
CPT/HCPCS: 36415; 73030; 73562; 73590; 80053; 80061; 82306; 82607; 82746; 83036; 83735; 84443; 85027

== ENCOUNTER 2024-12-18 11:32 | Outpatient (CLI) | payer OTHER, SELFPAY ==
--- NOTE | ~2024-12-18 | XR_ITS ---
XR lumbar spine 2-3V Indication: LOW BACK PAIN CHRONIC Comparison: None Findings: The vertebral heights are intact. No fracture or subluxation. The disc heights are intact. Soft tissues unremarkable Impression: No acute abnormality. Reviewed, dictated and finalized at location P. UROLOGY Impression: No acute abnormality.
--- NOTE | ~2024-12-18 | XR_ITS ---
XR thoracic spine 3V Indication: LOW BACK PAIN CHRONIC Comparison: None Findings: Moderate loss of vertebral height throughout, no fracture or subluxation. Moderate loss of disc height throughout. Soft tissues unremarkable Impression: No acute abnormality. Reviewed, dictated and finalized at location P. OR LIBRARIAN Impression: No acute abnormality.
[2024-12-18 12:38] LABS: Alanine Aminotransferase 21 U/L (6-35); Albumin Level 4.3 g/dL (3.5-5.1); Alkaline Phosphatase 100 U/L (38-126); Aspartate Amino Transferase 30 U/L (14-36); Bilirubin,Total 0.6 mg/dL (0.2-1.3); Total Protein 7.5 g/dL (6.3-8.2)
--- OUTSIDE RECORDS SUMMARY | 2024-12-18 13:06 | XMS_ITS | Encounter Summary ---
Author Organization [facility] Address [address] [place] [address] Care Team Providers Care On Site Coordinator Name Role Phone Rene Agosto MD Unavailable [phone] Marion Terry NP Primary Care Pr ovider Encounter Details Date Type Department Care Team (Late st Contact Info) Description 09/12/2021 Lab Requisition [facility] Care DermPath Lab [address] [place] [id number] [place] [address] [address] Social History Tobacco Use Types Packs/Day Years Used Date Smoking Tobacco: Never Smokeless Tobacco: Never Alcohol Use Standard Drinks/Week Comments Never 0 (1 standard drink = 0.6 oz pur e alcohol) wine Comments No Sex and Gender Information Value Date Recorded Sex Assigned at Not on file Legal Sex Female 7:23 AM LEAD PHARMACY TECHNICIAN Gender Identity Not on file Sexual Orientation Not on file documented as of this encounter Functional Status * Is person deaf or have serious hearing difficulty? Answer Date of Assessment Author No 03/31/2020 6:26 PM LEAD PHARMACY TECHNICIAN Anne-Marie Wagoner RN * Is person blind [...] AM CDT) Case Report Dermatopathology Report Case: [id number] Authorizing Provider: Gerson Walsh MD Collected: 09/11/2021 12:00 AM Ordering Location: [facility] DermPath Lab Received: 09/12/2021 11:53 [...] specimen consists of a punch biopsy measuring [id number]. Jar 0. 2 1:40 PM CDT DERMATOPATHOLOGY [...] characteristic determined by the Dermatopathology Laboratory at [facility], directed by Dr. Saul Prajapati. These tests need not be, and therefore are not, approved by the [place] Food and Drug Administration. The tests are used for clinical purposes. Billing Codes Specimen Charges Stain Charges 89975 1 2 1:40 PM CDT DERMATOPATHOLOGY LABORATORY Embedded Images 2 1:40 PM CDT DERMATOPATHOLOGY LABORATORY Pathology/Cytolog y TISSUE SPECIMEN FROM SKIN / Unknown 09/11/2021 09/12/2021 11:53 AM CDT Gerson Walsh MD LAB - PATHOLOGY/CYTOLOGY O RDERABLES Final Result DERMATOPATHOLOGY LABORATORY [facility] - Department of Dermatology [place] [id number] [facility], [address] Floor [place], [place] [address] [phone] documented in this encounter Visit Diagnoses Not on filedocumented in this encounter Care Teams On Site Coordinator Relationship Specialty Start Date End Date Marion Terry NP [address] [place] [id number] PCP - General 09/12/21 Rene Agosto MD Lap Checker Cardiology 12/04/14 documented as of this encounter
--- OUTSIDE RECORDS SUMMARY | 2024-12-18 13:06 | XMS_ITS | Encounter Summary ---
Author Organization [facility] Healthcare Address [address] [place] [address] Care Team Providers Care Dock Operations Supervisor Name Role Phone Unknown, Notinfile Primary Care Provider Unavail able Nicholas Wood MD Primary Care Provider [phone] Fortunato Henriquez NP Unavailable [phone] Encounter Details Date Type Department Care Team (Late st Contact Info) Description 04/18/2020 Telephone [facility] Imaging [address] [address] [address] [address], [place] Social History Tobacco Use Types Packs/Day Years Used Date Smoking Tobacco: Never Assessed Comments No Sex and Gender Information Value Date Recorded Sex Assigned at Not on file Legal Sex Female 10:09 AM BROADCAST PROGRAM DIRECTOR Gender Identity Not on file Sexual [...] documented as of this encounter Care Teams Dock Operations Supervisor Relationship Specialty Start Date End Date Unknown, Allison PCP - General 03/28/20 04/18/20 Nicholas Wood MD PCP - General Family Medicine 04/19/20 Fortunato Henriquez NP [address] [place] [address] Nurse Practitioner Family Practice 04/06/24 documented as of this encounter
--- OUTSIDE RECORDS SUMMARY | 2024-12-18 13:07 | XMS_ITS | Clinical Summary ---
Author Organization [facility] Address [address] [place] [address] Care Team Providers Care Program Scheduler Name Role Phone Unavailable Primary Care Provider [...]
--- OUTSIDE RECORDS SUMMARY | 2024-12-18 13:07 | XMS_ITS | Clinical Summary ---
Author Organization [facility] rofessional Office [facility] Address [address] [place] [address] Care Team Providers Care Burling And Joining Supervisor Name Role Phone Doc Faith MD Primary Care Provider [phone] Allergies Active Allergy Reactions Criticality Noted Date [...] 2) 2016 INFLUENZA VACCINE (#1) 2024 Insurance [facility] OPTIONS PPO [id number] Care Teams Burling And Joining Supervisor Relationship Specialty Start Date End Date Doc Faith MD [address] [place] [phone] PCP - General Internal Medicine 08/07/15
--- OUTSIDE RECORDS SUMMARY | 2024-12-18 13:07 | XMS_ITS | Clinical Summary ---
Author Organization [facility] Address [address] [place] [address] Care Team Providers Care Hide And Skin Fleshing Machine Operator Name Role Phone Rene Agosto MD Unavailable [phone] Marion Terry NP Primary Care Pr ovider Source Comments [facility],non-owned Affiliates and Associated Physician Practices is amultiple site organization consisting of ambulatory clinics and hospital sitesin [place], [place] and [place]. This disclosure is being madepursuant to the Care Everywhere program and may not contain all information available regarding this patient. Last updated 17.[facility] Allergies Active Allergy Reactions Criticality Noted [...] Active vitamin D, ergocalciferol, (DRISDOL) 1.25 MG (45099 UT) capsule 1 Active furosemide (LASIX) 40 [...] 04/28/2020 Immunizations Immunization Administration Dates Next Due [facility] primary monoval ent 12+ yr 0.3mL Purple [...] on file Legal Sex Female 7:23 AM NURSE PRACTICAL Gender Identity Not on file Sexual Orientation [...] (CALCIUM TOTAL) AM Draw 04/01/2020 3:52 AM NURSE PRACTICAL LIPID PROFILE STAT 04/01/2020 3:52 AM NURSE PRACTICAL Sinus bradycardia HIV-1 HIV-2 ANTIBODY + HIV P24 AG PANEL STAT 03/31/2020 12:48 PM NURSE PRACTICAL ENDOSCOPY, COLON, SCREENING Routine 05/24/2017 1:00 PM CDT MAMMO BILAT SCREENING Routine 01/07/2016 10:52 AM NURSE PRACTICAL Encounter for screening mammogram for breast cancer from Last 3 Months or Most Recently Relevant to Health Maintenance Results * (ABNORMAL) BASIC METABOLIC PANEL (CALCIUM TOTAL) (04/01/2020 3:52 AM NURSE PRACTICAL) Glucose 85 70 - 105 mg/dL 04/01/2020 5:06 AM NURSE PRACTICAL [facility] Sodium 142 136 - 145 mmol/L 04/01/2020 5:06 AM NURSE PRACTICAL [facility] Potassium 3.5 3.5 - 5.1 mmol/L 04/01/2020 5:06 AM NURSE PRACTICAL [facility] Chloride 110(H) 98 - 107 mmol/L 04/01/2020 5:06 AM NURSE PRACTICAL [facility] CO2 27 23 - 31 mmol/L 04/01/2020 5:06 AM NURSE PRACTICAL [facility] Calcium 9.5 8.4 - 10.4 mg/dL 04/01/2020 5:06 AM NURSE PRACTICAL [facility] Anion Gap 5(L) 8 - 18 mmol/L 04/01/2020 5:06 AM [facility] Comment:Attention clinician: Reference Range change. BUN 15 9.8 - 20.1 mg/dL 04/01/2020 5:06 AM [facility] Creatinine 0.92 0.57 - 1.11 mg/dL 04/01/2020 5:06 AM [facility] eGFR by MDRD >60 >60 mL/min/1.7 3m2 04/01/2020 5:06 AM [facility] eGFR by MDRD >60 >60 mL/min/1.7 3m2 04/01/2020 5:06 AM [facility] Blood BLOOD SPECIMEN / Unknown Venipuncture / Unknown 04/01/2020 3:52 AM NURSE PRACTICAL 04/01/2020 4:30 AM [facility] Ruchi Godinez APRN-HUMANITIES INSTRUCTOR LAB - CHEMISTRY ORDERABLE S Final Result [facility] [address] [place] [address] * (ABNORMAL) LIPID PROFILE (04/01/2020 3:52 AM [facility]) Cholesterol 224(H) <200 mg/dL 04/01/2020 5:06 AM [facility] Triglycerides 85 <150 mg/dL 04/01/2020 5:06 AM [facility] HDL Cholesterol 70 >40 mg/dL 5:06 AM [facility] LDL Calculated 137(H) <130 mg/dL 04/01/2020 5:06 AM [facility] VLDL Calculated 17 <=30 mg/dL 5:06 AM [facility] Chol HDL Ratio 3.2 <4.5 04/01/2020 5:06 AM [facility] LDL/HDL Ratio 2.0 <5.0 04/01/2020 5:06 AM [facility] Blood BLOOD SPECIMEN / Unknown Venipuncture / Unknown 04/01/2020 3:52 AM NURSE PRACTICAL 04/01/2020 4:30 AM NURSE PRACTICAL Claudio Gutiérrez MD LAB - CHEMISTRY ORDERABLES Final Result Performing Organization Address [facility] de Phone Number [facility] [address] [place] [id number] * HIV-1 HIV-2 ANTIBODY + HIV P24 AG PANEL (03/31/2020 12:48 PM NURSE PRACTICAL) Pathologist [facility] HIV1/2 Ab + P24 Ag Non Reactive Non Reactive 03/31/2020 1:39 PM NURSE PRACTICAL [facility] Blood BLOOD SPECIMEN / Unknown Venipuncture / Unknown 03/31/2020 12:48 PM NURSE PRACTICAL 03/31/2020 1:00 PM NURSE PRACTICAL Narrative [facility] - 03/31/2020 1:39 PM NURSE PRACTICAL No Laboratory evidence of HIV infection. Dennis Hargrove MD LAB - CHEMISTRY ORDERABLES Eblen l Result Performing Organization Address [facility] de Phone Number [facility] [address] [place] [address] * ENDOSCOPY, COLON, SCREENING (05/24/2017 1:00 PM CDT) [facility] Report Endoscopy POC _ Patient Name: Dejah Obrien Procedure Date: 05/24/2017 1:00 PM Date of : 1965 Admit Type: Outpatient Age: 51 Gender: Female Attending MD: Silas Potts MD _ Procedure: Colonoscopy Indications: Screening for colorectal malignant neoplasm Providers: Silas Potts MD (Doctor), Meghana Adams RN, Es Ocampo, Roaster Helper Referring MD: Doc Faith MD (Referring MD) [...] pathology results. Procedure Code(s): --- Professional --- 65209, Colonoscopy, flexible; with biopsy, single or multiple --- Technical --- 84589, Colonoscopy, flexible; with biopsy, single or multiple [...] or abscess without bleeding CPT copyright 2015 [employer]. All rights reserved. The codes documented in this report are preliminary and upon technical inspector review may be revised to meet current compliance requirements. Silas Potts MD 05/24/2017 1:28:42 PM This report has been signed electronically. Number of Addenda: 0 Note Initiated On: 05/24/2017 1:00 PM [facility] ENDOSCOPY 05/24/2017 1:00 PM CDT us Silas Potts MD GI PROCEDURE ORDERABLES Edited R esult - Final [facility] ENDOSCOPY * MAMMO SCREENING DIGITAL IMAGE BILAT G0202 (01/07/2016 10:52 AM NURSE PRACTICAL) Anatomical Region Laterality Modality Breast Bilateral Mammography 01/22/2016 11:3 0 AM NURSE PRACTICAL Addenda Addendum by Noemí Martin MD on 02/24/2016 5:22 PM NURSE PRACTICAL Previous mammograms from [facility] on 02/05/2015, 06/09/2012, 05/11/2011, and 04/09/2010 are [...] in one year. Impressions 01/22/2016 12:13 PM NURSE PRACTICAL Questioned mass in the upper outer right breast. No evidence of malignancy in the left breast. ASSESSMENT: BIRADS Category 0: Incomplete - Needs additional imaging evaluation. RECOMMENDATION: Right breast targeted ultrasound and possible mammography. Thank you for allowing us to participate in the care of your patient. [facility] utilizes [employer] as a reminder system to notify patients of their next recommended mammogram. Narrative 01/22/2016 12:13 PM NURSE PRACTICAL EXAMINATION: Digital screening mammogram on 01/07/2016. Computer assisted detection was utilized. PRIOR: Attempt was made to retrieve prior images from [facility]; however, none were available. 04/09/2010 diagnostic right [...] was made to retrieve prior images from [facility]; however, none were available. 04/09/2010 diagnostic right [...] participate in the care of your patient. [facility] utilizes Med[employer]ant as a reminder system to notify patients of their next recommended mammogram. us Doc Faith Jr., MD MAMMO ORDERABLES Edite d Result - Final from Last 3 Months or Most Recently Relevant to Health Maintenance Insurance [facility] Member Subscriber Plan / Payer (Ef fective 2015-Present) Name:Dejah Valdes Member ID:Not on file Relation to Subscriber:Spouse Name:ALEXANDER OBRIEN Date of :1959 (Home) (Work) Address: [address] [place] [address] Payer ID:[id number] (NAIC) Type:O Address: [facility] [address] [place] [address] [facility] SELF PAY NO INSURANCE Member Subscriber Plan / Payer (Ef fective for All Dates) Name:Dejah Valdes Member ID:Not on file Relation to Subscriber:Not on file Name:DEJAH VALDES Subscriber ID:Not on file (Home) Address: [address] [place] [address] Payer ID:Not on file Group ID:Not on file Type:Self Pay Address: [place], [place] [employer] Member Subscriber Plan / Payer (Ef fective 2002-Present) Name:Dejah Valdes Relation to Subscriber:Spouse Name:ALEXANDER OBRIEN Subscriber ID:Not on file Date of :1958 (Home) Address: [address] [place] [address] Payer ID:[id number] (NAIC) Type:HMO Address: [address] [place] [phone] CARE Member Subscriber Plan / Payer (Ef fective 2002-Present) Name:Dejah Valdes Relation to Subscriber:Spouse Name:ALEXANDER OBRIEN Date of :1959 (Home) Address: [address] [place] [address] Payer ID:[id number] (IC) Type:HMO Address: [address] [address] [place] [address] [facility] Advance Directives * Full Code (Latest Code Status on File) Date Activated Date Inactivated Comments 03/31/2020 1:37 PM 04/01/2020 5:37 PM Care Teams Hide And Skin Fleshing Machine Operator Relationship Specialty Start Date End Date Marion Terry CHANNEL WORKER [address] [place] [phone] PCP - General 09/12/21 Rene Agosto MD Fire Pot Operator Cardiology 12/04/14
--- OUTSIDE RECORDS SUMMARY | 2024-12-18 13:07 | XMS_ITS | Clinical Summary ---
Author Organization [facility] Address [address] [place] [address] Care Team Providers Care Cook Boat Name Role Phone Nicholas Wood MD Primary Care Provider [phone] Fortunato Henriquez NP Unavailable [phone] Allergies Active Allergy Reactions Criticality Noted Date [...] Type Department Care Team Description 11/06/2024 Telephone [facility] Gastroenterology at [address] [address] Gwen Jordan DNP 09/27/2024 3:58 AM CDT - 09/27/2024 6:06 AM CDT Emergency [address] [address] Checo Lynch MD Dark stools (Primary Dx); Vertigo Discharge Disposition: Discharge to home or self care from Last 3 Months Surgical History Surgery Date Site/Laterality Comments IR FINE NEEDLE ASPIRATION W IMAGE GUIDANCE 03/11/2015 N/A Medical History Medical History Date Comments Hypertension Bradycardia Social History Tobacco Use Types Packs/Day Years Used Date Smoking Tobacco: Never Smokeless Tobacco: Never [facility] Utilities Answer Date Recorded In the past [...] often do you attend chur ch or congregation services? More than 4 times per year 09/15/2023 Do you belong to any clubs o r organizations such as restorationist groups, unions, fraternal or athletic groups, or [...] in the past 12 m [facility], were you homeless or living in a penitentiary (including now)? No 09/15/2023 Personal Safety Answer Date Recorded Have you ever been in or are you currently in a harmful physical or emotional relationship or is someone making you feel afraid or unsafe? 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 RB T: Report ID: [id number] Reading Location: [id number] Procedure Note Silvino Fisher MD - 09/27/2024 [...] Silvino Fisher M.D. RB T: Report ID: [id number] Reading Location: [place] [address] us Checo Lynch MD IMG CT PROCEDURES Final Result * ABO / Rh Confirmation Testing (09/27/2024 4:36 AM CDT) ABO/Rh Confirmation O Positive [facility] Blood 09/27/2024 4:36 AM CDT 09/27/2024 4:41 AM CDT us Checo Lynch MD LAB BLOOD ORDERABLES Final Resul t [facility] [address] Department of Laboratories [place], [place] [id number] [facility] * aPTT (09/27/2024 4:36 AM CDT) aPTT 31 22 - 37 sec Comment: Interpretive data aPTT test has not been evaluated for monitoring heparin therapy. The anti-Xa is the preferred test. Current interpretive data was last revised on 2019. Blood 09/27/2024 4:36 AM CDT 09/27/2024 4:41 AM CDT us Checo Lynch MD LAB BLOOD ORDERABLES Final Resul t Performing Organization Address [facility] de Phone Number [address] [place] [address] * Protime-INR (09/27/2024 4:36 AM CDT) PT 12.80 12.00 - 14.60 sec INR 0.95 0.90 - 1.20 [facility] Comment: Interpretive data Oral anticoagulant therapeutic ranges: Venous thromboembolism prophylaxis or treatment: 2.0-3.0 CARDIOLOGY Standard range: 2.0-3.0 High-intensity range: 2.5-3.5 Refer to indication-specific guidelines for appropriate target ranges for prosthetic heart valve replacement. Current interpretive data was last revised on 2019. Blood 09/27/2024 4:36 AM CDT 09/27/2024 4:41 AM CDT Checo Lynch MD LAB BLOOD ORDERABLES Final Resul t Performing Organization Address [facility] de Phone Number [address] [place] [address] * (ABNORMAL) eGFR (09/27/2024 1:37 AM CDT) [...] MD LAB BLOOD ORDERABLES Final Resul t [facility] [address] Department [place] [address] * (ABNORMAL) Differential, auto (09/27/2024 1:37 AM CDT) Neutrophil abs 4.97 1.50 - 6.50 K/cumm Imm gran abs 0.02 0.00 - 0.10 K/cumm [facility] Lymphocyte abs 2.51 0.80 - 3.30 K/cumm [facility] Monocyte abs 0.99(H) 0.20 - 0.80 K/cumm [facility] Eosinophil abs 0.18 0.00 - 0.50 K/cumm [facility] Basophil abs 0.06 0.00 - 0.10 K/cumm [facility] Neutrophil pct 56.9 % [facility] Comment: Interpretive Data Percent cell count reference ranges are not reported, since discordance with absolute values may lead to misinterpretation of CBC data. Current Interpretive Data was last revised on 2017. Imm gran pct 0.2 % [facility] Comment: Interpretive Data Percent cell count reference ranges are not reported, since discordance with absolute values may lead to misinterpretation of CBC data. Current Interpretive Data was last revised on 2017. Lymphocyte pct 28.8 % [facility] Comment: Interpretive Data Percent cell count reference ranges are not reported, since discordance with absolute values may lead to misinterpretation of CBC data. Current Interpretive Data was last revised on 2017. Monocyte pct 11.3 % [facility] Comment: Interpretive Data Percent cell count reference ranges are not reported, since discordance with absolute values may lead to misinterpretation of CBC data. Current Interpretive Data was last revised on 2017. Eosinophil pct 2.1 % [facility] Comment: Interpretive Data Percent cell count [...] LAB BLOOD ORDERABLES Final Resul t [facility] [address] Department [place] [address] * (ABNORMAL) Urinalysis reflex to microscopic and culture Urine (09/27/2024 1:37 AM CDT) Color, ur Yellow Yellow Clarity, ur Clear Clear [facility] Specific gravity, ur 1.028 1.003 - 1.030 [facility] pH, urine 5.5 [facility] Comment: Interpretive Data U rine pH is affected by diet, medications, systemic acid-base disturbances, and renal tubular function. pH may affect urinary stone formation. For example, urine pH below 6.0 may help reduce the tendency for calcium phosphate stones and pH greater than 6.0 may reduce the tendency for uric acid stone formation. Source: [facility] Current Interpretive Data was last revised on 2017 Protein, ur ql Negative Negative [facility] Glucose, ur ql Negative Negative [facility] Ketones, ur Negative Negative [facility] Bilirubin, ur Negative Negative [facility] Blood, ur 2+(A) Negative [facility] Urobilinogen, ur <2.0 <2.0 mg/dL [facility] Nitrite, ur Negative Negative [facility] Leukocyte esterase, ur Negative Negative [facility] UA reflex comment Reflex to microscopic UA will be performed. [facility] Urine 09/27/2024 1:37 AM CDT 09/27/2024 1:41 AM CDT Checo Lynch MD LAB MICROBIOLOGY - GENERAL ORDER JAY Final Result Performing Organization Address [facility] de Phone Number [address] [address] * (ABNORMAL) CBC with auto differential (09/27/2024 1:37 AM CDT) Pathologist [facility] WBC 8.73 3.80 - 9.90 K/cumm Hgb 12.7 11.9 - 15.5 g/dL [facility] Hct 42.2 35.6 - 45.5 % [facility] Plt 241 150 - 400 K/cumm [facility] MPV 10.3 9.1 - 12.3 fL [facility] RBC 5.10 3.90 - 5.20 M/cumm [facility] MCV 82.7 81.3 - 96.4 fL [facility] MCH 24.9(L) 27.1 - 33.3 pg [facility] MCHC 30.1(L) 32.3 - 35.7 g/dL [facility] RDW CV 15.1(H) 11.1 - 14.9 % [facility] RDW SD 45.9 35.7 - 48.1 fL [facility] NRBC abs 0.00 0.00 - 0.01 K/cumm [facility] Blood 09/27/2024 1:37 AM CDT 09/27/2024 1:41 AM CDT Checo Lynch MD LAB BLOOD ORDERABLES Final Resul t Performing Organization Address [facility] de Phone Number [address] [address] * ABO/Rh (09/27/2024 1:37 AM CDT) [facility] ABO/Rh O Positive Blood 09/27/2024 1:37 AM CDT 09/27/2024 1:41 AM CDT Checo Lynch MD LAB BLOOD BANK TEST ORDERABLES F inal Result Performing Organization Address [facility] Co de Phone Number [address] Department [place] [address] * (ABNORMAL) Urinalysis, microscopic only (09/27/2024 1:37 AM CDT) WBC, ur 0-5 0 - 5 /HPF RBC, ur 11-20(A) 0 - 2 /HPF [facility] Epithelial cells, squamous, ur 1-5 0 - 5 /HPF [facility] Bacteria, ur Trace(A) [facility] Culture Reflex Comment Reflex conditions for urine culture (WBC >10) not met. [facility] Urine 09/27/2024 1:37 AM CDT 09/27/2024 1:41 AM CDT us Checo Lynch MD LAB URINE ORDERABLES Final Resul t [place] [id number] [facility] [place] [address] * (ABNORMAL) Comprehensive metabolic panel (09/27/2024 1:37 AM CDT) Pathologist [facility] Sodium 142 135 - 145 mmol/L Potassium, pl 3.9 3.3 - 4.9 mmol/L [facility] Chloride 108 97 - 110 mmol/L [facility] CO2 23 22 - 32 mmol/L [facility] Anion gap 11 2 - 15 mmol/L [facility] BUN 23 6 - 25 mg/dL [facility] Creatinine 1.30(H) 0.60 - 1.10 mg/dL [facility] Glucose 106 70 - 199 mg/dL [facility] Comment: Interpretive Data Fasting glucose >/= [...] classification and Diagnosis of Diabetes Diabetes Care 202; 46: S19-S40. Current interpretive data was last revised 2022. Calcium 9.6 8.5 - 10.3 mg/dL [facility] Bilirubin, total 0.3 0.1 - 1.2 mg/dL [facility] Protein, pl 7.2 6.5 - 8.5 g/dL [facility] Albumin 4.1 3.5 - 5.0 g/dL [facility] Alk phos 130 40 - 130 Units/L [facility] ALT 41 7 - 45 Units/L [facility] AST 26 10 - 45 Units/L [facility] Blood 09/27/2024 1:37 AM CDT 09/27/2024 1:41 AM CDT Checo Lynch MD LAB BLOOD ORDERABLES Final Resul t [facility] Department [place] [address] * ECG 12 lead (09/27/2024 1:34 AM CDT) Ventricular Rate EKG/Min 79 BPM [facility] Atrial Rate 79 BPM [facility] KS-Interval (MSEC) 146 ms [facility] QRS-Interval (MSEC) 72 ms [facility] QT-Interval (MSEC) 384 ms [facility] QTc 440 ms [facility] P [place] 36 degrees [facility] R [place] 22 degrees [facility] T [place] 31 degrees [facility] Diagnosis Normal sinus rhythm Possible Left atrial enlargement Borderline ECG When compared with ECG of 29-JUN-2021 09:37, No significant change was found Confirmed by SULY RING M.D. ([id number]) on 09/28/2024 5:39:10 PM [facility] 09/27/2024 1:34 AM CDT 09/28/2024 5:39 PM CDT us Checo Lynch MD ECG ORDERABLES Final Result [facility] * Screening Mammogram (06/09/2012 3:23 PM CDT) Anatomical Region Laterality Modality Breast N/A Mammography 06/09/2012 3:23 PM CDT Narrative 06/10/2012 1:15 PM CDT FRANCOIS BROWNE M.D. FINAL REPORT ACC# Date Time Exam [id number] Jun 09, 2012 15:23:00 [facility] [place] [address] Screening Mamm Bilat Technologist(s): Mesha Crisostomo; ; EXAMINATION: Mammogram Findings: A Full-Field Digital Screening Mammogram was performed. Views obtained: bilateral craniocaudal; bilateral mediolateral oblique. Computer Aided Detection was performed with M-DISC.3 version 9.3. The present examination has been compared to prior imaging studies performed at [facility] on 05/11/2011 and 07/31/2009. The breasts are heterogeneously dense which could obscure a lesion on mammography. There are calcifications in the right breast. Finding remains unchanged from the prior study. There is no suspicious abnormality in the left breast. IMPRESSION: Calcifications in the right breast are benign. Annual screening mammography is recommended. OVERALL FINAL ASSESSMENT: BI-RADS CATEGORY 2: Benign. Requested By: WILLIAM ARELLANO OUTSIDE PLANT TECHNICIAN Dictated By: FRANCOIS BROWNE M.D. on Jun 10 2012 1:15P This document has been electronically signed by: FRANCOIS BROWNE M.D. on Jun 10 2012 1:14P Procedure Note Provider, MD Paulette - 06/07/2016 FRANCOIS BROWNE M.D. FINAL REPORT ACC# Date Time Exam [id number] Jun 09, 2012 15:23:00 [facility] [place] [address] Screening Mamm Bilat Technologist(s): Mesha Crisostomo; ; EXAMINATION: Mammogram Findings: A Full-Field Digital Screening Mammogram was performed. Views obtained: bilateral craniocaudal; bilateral mediolateral oblique. Computer Aided Detection was performed with [employer] 1.3 version 9.3. The present examination has been compared to prior imaging studies performed at [facility] on 05/11/2011 and 07/31/2009. The breasts are heterogeneously dense which could obscure a lesion on mammography. There are calcifications in the right breast. Finding remains unchanged from the prior study. There is no suspicious abnormality in the left breast. IMPRESSION: Calcifications in the right breast are benign. Annual screening mammography is recommended. OVERALL FINAL ASSESSMENT: BI-RADS CATEGORY 2: Benign. Requested By: WILLIAM ARELLANO OUTSIDE PLANT TECHNICIAN Dictated By: FRANCOIS BROWNE M.D. on Jun 10 2012 1:15P This document has been electronically signed by: FRANCOIS BROWNE M.D. on Jun 10 2012 1:14P Historical Provider MD [facility] MAMMO PROCEDURES Belen l Result from Last 3 Months or Most Recently Relevant to Health Maintenance Insurance [facility] PLAN [facility] BENEFIT PLAN [employer] ional [place] [id number] [place] [address] [place] [employer] Advance Directives For more information, please contact: [phone] * Full Code (Latest Code Status on File) Date Activated Date Inactivated Comments 09/13/2023 3:05 PM 09/16/2023 8:32 PM Care Teams Cook Boat Relationship Specialty Start Date End Date Nicholas Wood MD PCP - General Family Medicine 04/19/20 Fortunato Henriquez NP [address] [place] [address] Nurse Practitioner Family Practice 04/06/24
== END 2024-12-18 11:33 | disposition home or self-care (01) ==
PROVIDERS: PCP Family Medicine; Visit Provider Nurse Practitioner Family
DX: R74.8 Abnormal levels of other serum enzymes (principal)
CPT/HCPCS: 36415; 72072; 72100; 80076